=== PATIENT | male | born 1965 | race Two or more races ===

== ENCOUNTER 2022-11-19 09:19 | Outpatient (AMB) | payer OTHER, SELFPAY ==
--- NOTE | 2022-11-19 09:21 | MHC.PC.OV ---
Vital Signs 11/19/22 09:24 Height 5 ft 9 in Weight 255 lb 2 oz BMI 37.7 BP 130/70 Blood Pressure Location Lt brachial Position Sitting Pulse 60 Pulse Source Pulse Oximeter Pulse Oximetry (%) 96 Oxygen Delivery Method Room Air Intake Visit Reasons: npv/medication bm Intake Note: Patient is a new patient here to establish care for Diabetes, HTN, Chronic knee pain. Transferring care from Dr Juarez. Medical records have not been requested and have not received. Letter stating his health issue and needing to stay on the first floor. Plane Tableman Required: No Box Car Bracer: Not Required per policy Accompanied by: Self / Same As Patient Allergies No Known Allergies [No Known Allergies*] Allergy (Verified 11/19/22 09:40) Medication List - Last Reconciled 11/19/22 by ETIENNE Devine ibuprofen 800 mg PO Q8H PRN lisinopril 10 mg PO DAILY metformin 1,000 mg PO DAILY methadone 150 mg PO DAILY Tobacco use date assessed: 11/19/22 Dental Screening Dental Screen Date: 11/19/22 Did you have a dental visit in the last 12 months?: Yes Did you have a dental problem in the last 6 months where you did not have access to dental care?: No Was dental information given to patient?: Patient has dentist HPI HPI Comments History of Present Illness Details 57-year-old male new patient presents today to establish care. Patient reports previous patient of Dr. Juarez last seen years ago. Past medical history significant bilateral knee arthritis, hypertension, type 2 diabetes mellitus and history of polysubstance abuse. Patient reports previously used to use cocaine and sniffed heroin. Patient currently followed by [facility] on 150 mg methadone daily. Clean x 3 months Patient reports currently residing at the [facility]. Patient requesting new referral to [facility] as he states he has history of bilateral knee arthritis and he has [id number] in has been recommended to have knee replacements in the past. New referral entered. Patient requesting a letter for 1st floor housing as well as 1st level bunk due to his bilateral knee arthritis is difficult for him to get up and down the stairs as well as climbing the ladder to get into the bunk. Patient provided with letter and letter read to patient prior to printing when letter handed to patient he said well now what does this say. This CORPORATE STAFF ACCOUNTANT replied its says what I read to you. Patient then got upset started yelling that I am treating him differently do to his hx of addiction. This CORPORATE STAFF ACCOUNTANT apologized and stated I am not treating him any different for which he replied I am and left the appointment. Patient requesting something stronger for pain, patient made aware and will not be prescribing him any narcotic pain medication. Patient requesting new prescription for his ibuprofen increased does, For bilateral knee pain ibuprofen 800 mg sent to patient's pharmacy. [facility] Medical History (Updated 11/19/22 @ 09:45 by ETIENNE Devine) Polysubstance abuse Surgical History (Updated 11/19/22 @ 09:33 by WILLIAM Mcmahan) History of arthroscopy of left knee Family History (Updated 11/19/22 @ 09:45 by ETIENNE Devine) Mother No problems noted. Father No problems noted. Other Substance use disorder Social History (Updated 11/19/22 @ 09:46 by ETIENNE Devine) Housing: Apartment Alcohol intake: never Patient Tobacco Use Status: Current everyday Tobacco user Tobacco use type: Cigarette Cigarette Packs Per Day: 0.5 Cigarettes Per Day: 10 e-Cigarette/Vaping Use: Never Used Second Hand Smoke Exposure: Yes service: No Current occupational status: unemployed and disabled Cognitive needs: No Hearing needs: No Vision needs: No Questionnaire PHQ-9 Over the last 2 weeks, how often have you been bothered by any of the following problems? 1. Little interest or pleasure in doing things: not at all 2. Feeling down, depressed, or hopeless: not at all 3. Trouble falling or staying asleep, or sleeping too much: not at all 4. Feeling tired or having little energy: not at all 5. Poor appetite or overeating: not at all 6. Feeling bad about yourself - or that you are a failure or have let yourself or your family down: not at all 7. Trouble concentrating on things, such as reading the newspaper or watching television: not at all 8. Moving or speaking so slowly that other people could have noticed. Or the opposite - being so fidgety or restless that you have been moving around a lot more than usual: not at all 9. Thoughts that you would be better off or of hurting yourself in some way: not at all Total score: 0 Depression Screening Interpretation: Negative 14391 - PHQ-9 Billing: Yes Source: Developed by Drs. Dario Christopher, Tia Lopez, Vladimir Soto and colleagues, with an educational yunior from [employer]. Thrive Questionnaire Date Thrive assessed: 11/19/22 I am a: Patient What is your living situation today?: I have a steady place to live Within the past 12 months, did the food you bought not last and you didn't have the money to get more?: Never true Within the past 12 months, did you worry whether your food would run out before you got money to buy more?: Never true Do you have trouble paying for medicines?: No Do you have trouble getting transportation to medical appointments?: No Do you have trouble paying your heating and electricity bill?: No Do you have trouble taking care of your child, family member or friend?: No Do you have trouble with day-to-day activities such as bathing, preparing meals, shopping, managing finances, etc.?: No Are you currently unemployed and looking for a job?: No Are you interested in more education?: No Currently or been in a relationship where the following occur: no concerns reported AUDIT C Alcohol Use Questionnaire (AUDIT-C) 1. How often do you have a drink containing alcohol?: Never Total Score: 0 SHELLEY-7 AMB Questionnaire SHELLEY-7 Date SHELLEY - 7 assessed: 11/19/22 Feeling nervous, anxious, or on edge: 0 = Not at all Not being able to stop or control worryin = Not at all Worrying too much about different things: 0 = Not at all Trouble relaxin = Not at all Being so restless that it is hard to sit still: 0 = Not at all Becoming easily annoyed or irritable: 0 = Not at all Feeling afraid as if something awful might happen: 0 = Not at all Total SHELLEY-7 score (0-4 normal; 5-9 mild; 10-14 moderate; 15-21 severe): 0 Source: Developed by Tia Rodgers Kurt Kroenke and colleagues, with an educational yunior from [employer]. SHELLEY-7 Assessment Billing SHELLEY-7 Assessment Tool: SHELLEY-7 Assessment 48338 Review of Systems Const Denies chills, Denies fatigue, Denies fever(s) and Denies poor appetite Eyes Denies no additional complaints ENT Reports Normal hearing present Card Denies chest pain, Denies syncope, Denies rapid heart rate and Denies dyspnea Resp Denies cough and Denies dyspnea GI Denies change in stool character, Denies constipation, Denies diarrhea, Denies nausea and Denies vomiting Denies dysuria, Denies urinary frequency and Denies urinary urgency Neuro Reports Normal hearing present, Denies confusion and Denies syncope Psych Denies confusion Endo Denies fatigue Physical exam (Primary Care) Vital Signs: Last Vital Signs Pulse 60 11/19/22 09:24 BP 130/70 11/19/22 09:24 Pulse Ox 96 11/19/22 09:24 Oxygen Delivery Method Room Air 11/19/22 09:24 BMI result Body Mass Index 37.7 Tobacco/Smoking Status: Tobacco use Status Tobacco use date assessed 11/19/22 11/19/22 09:36 Patient Tobacco Use Status Current everyday Tobacco 11/19/22 09:46 Tobacco use type Cigarette 11/19/22 09:46 e-Cigarette/Vaping Use Never Used 11/19/22 09:46 PHQ-9: PHQ-9 Score PHQ-9: Total score 0 11/19/22 09:46 Depression Screening Interpretation: Negative Thrive Assessment: Date of Thrive Assessment Date Thrive assessed 11/19/22 11/19/22 09:36 Currently or been in a relationship where the following occur: no concerns reported Const General: No confusion Orientation/consciousness: No confusion HENAZ Head: Yes normocephalic and Yes atraumatic Eyes Conjunctivae: conjunctivae normal Chest Chest palpation & inspection: normal inspection of the chest Resp Effort & Inspection: normal respiratory effort Auscultation: clear to auscultation bilaterally, no crackles, no rhonchi and no wheezes Cardio Rate: regular rate Rhythm: regular rhythm Heart sounds: S1 normal heart sound present and S2 normal heart sound present GI Inspection: Yes normal to inspection Neuro General: No confusion Cranial nerves: Yes Normal hearing present Extrem General: No edema Assessment and Plan Assessment & Plan (1) Arthritis of both knees: Code(s): M17.0 - Bilateral primary osteoarthritis of knee Plan: New referral entered for [facility] to reestablish care. (2) Type 2 diabetes mellitus: Code(s): E11.9 - Type 2 diabetes mellitus without complications Plan: Continue on metformin 1000 mg daily. Fasting glucose and hemoglobin A1c ordered. (3) Hypertension: Code(s): I10 - Essential (primary) hypertension Plan: Continue on lisinopril 10 mg daily. Follow low-salt diet and exercise. Plan Follow up in 1 month for physical exam. Orders: Orders Comprehensive [place]. Panel Fast Today E11.9 - Type 2 diabetes mellitus without complications TSH reflex Free T4 Today Z13.29 - Encounter for screening for other suspected endocrine disorder Microalbumin, Random (w Creat) Today E11.9 - Type 2 diabetes mellitus without complications Complete Blood Count Auto Diff Today Z13.0 - Encounter for screening for diseases of the blood and blood-forming organs and certain disorders involving the immune mechanism Lipid Panel Today Z13.220 - Encounter for screening for lipoid disorders Hemoglobin A1c Today E11.9 - Type 2 diabetes mellitus without complications Referrals Orthopedics Referral M17.0 - Bilateral primary osteoarthritis of knee Medications: New metformin 1,000 mg PO DAILY 30 tabs 3RF ibuprofen 800 mg PO Q8H PRN 30 tabs 0RF pain Coding Level of Care Code New Pt Level 4 (37911) Diagnoses Arthritis of both knees M17.0 Type 2 diabetes mellitus E11.9 Hypertension I10 Additional Codes SHELLEY-7 Assessment Billing - SHELLEY-7 Assessment Tool: SHELLEY-7 Assessment 56954 ([id number])
[2022-11-19 09:24] VITALS: BP 130/70; PULSE 60; O2SAT 96; BMI 37.7
== END 2022-11-19 09:58 | disposition home or self-care (01) ==
PROVIDERS: PCP Physician Assistant; Visit Provider Nurse Practitioner Family
DX: M17.0 Bilateral primary osteoarthritis of knee (principal); E11.9 Type 2 diabetes mellitus without complications; I10 Essential (primary) hypertension
CPT/HCPCS: 99204

== ENCOUNTER 2022-12-11 09:35 | Outpatient (REF) | payer MEDICAID, SELFPAY ==
[2022-12-11 09:48] LABS: MANUAL DIFF FLAG NO
[2022-12-11 10:20] LABS: Basophils Absolute Auto 0.1 X10*3/uL (0.0-0.2); Basophils Percent Auto 0.6 % (0-2); Eosinophils Absolute Auto 0.2 X10*3/uL (0.0-0.4); Eosinophils Percent Auto 2.4 % (0-4); Hematocrit 41.3 % (42.0-52.0); Hemoglobin 13.1 g/dl (14.0-18.0); Imm Gran Abs Auto 0.09 X10*3/uL (0.00-0.03); Imm Gran Pct Auto 1.1 % (0.0-0.4); Lymphocytes Absolute Auto 2.6 X10*3/uL (1.2-4.9); Lymphocytes Percent Auto 30.5 % (20-40); Mean Corpuscular HGB Conc 31.7 g/dl (31.0-36.0); Mean Corpuscular Hemoglobin 27.2 pg (27.0-33.0); Mean Corpuscular Volume 85.7 fL (80.0-98.0); Mean Platelet Volume 10.3 fL (9.4-12.4); Monocytes Absolute Auto 0.5 X10*3/uL (0.1-1.2); Monocytes Percent Auto 6.2 % (2-11); Neutrophils Percent Auto 59.2 % (45-73); Platelet Count 227 X10*3/uL (160-400); Red Blood Count 4.82 X10*6/uL (4.60-5.80); Red Cell Distribution Width 13.2 % (11.0-16.0); White Blood Count 8.5 X10*3/uL (4.8-10.8)
[2022-12-11 10:40] LABS: Estimated Average Glucose 105 mg/dL; Hemoglobin A1c % 5.3 % (<6.0)
[2022-12-11 11:05] LABS: Alanine Aminotransferase 18 U/L (0-40); Albumin Level 3.9 g/dL (3.5-5.0); Alkaline Phosphatase 83 U/L (39-117); Anion Gap 13 (12-20); Aspartate Amino Transferase 26 U/L (5-37); Bilirubin Total 0.4 mg/dL (0.0-1.0); Blood Urea Nitrogen 14 mg/dL (9-16); Calcium 9.3 mg/dL (8.4-10.2); Carbon Dioxide 27 mmol/L (22-29); Chloride 106 mmol/L (96-108); Cholesterol 141 mg/dL (<200); Estimated Glomerular Filt Rate > 60; Glucose Fasting 122 mg/dL (60-99); HDL Cholesterol 38 mg/dL (>40); LDL Cholesterol Calculated 55 mg/dL (<100); Potassium 4.2 mmol/L (3.3-5.1); Sodium 142 mmol/L (135-145); Triglycerides 240 mg/dL (<150)
[2022-12-11 11:14] LABS: Creatinine Urine 166.06 mg/dL; Microalbum/Creatinine Ratio Ur 66.2 ug/mg cr (<30)
[2022-12-11 11:23] LABS: TSH reflex Free T4 1.02 uIU/mL (0.32-4.0)
== END 2022-12-11 09:36 | disposition home or self-care (01) ==
LOC: HO.LAB 09:35
PROVIDERS: PCP Physician Assistant; Visit Provider Nurse Practitioner Family
DX: Z13.29 Encounter for screening for other suspected endocrine disorder (principal); Z13.0 Encounter for screening for diseases of the blood and blood-forming organs and certain disorders involving the immune mechanism; Z13.220 Encounter for screening for lipoid disorders; E11.9 Type 2 diabetes mellitus without complications
CPT/HCPCS: 36415; 80053; 80061; 82043; 82570; 83036; 84443; 85025

== ENCOUNTER 2023-02-14 08:59 | Outpatient (AMB) | payer OTHER, SELFPAY ==
--- NOTE | 2023-02-14 10:30 | MHC.PC.OV ---
Intake Visit Reasons: personal Allergies No Known Allergies [No Known Allergies*] Allergy (Verified 11/19/22 09:40) Tobacco use date assessed: 11/19/22 [facility] Medical History (Updated 11/19/22 @ 09:45 by ETIENNE Devine) Polysubstance abuse Surgical History (Updated 11/19/22 @ 09:33 by Jose Melo [facility]) History of arthroscopy of left knee Family History (Updated 11/19/22 @ 09:45 by ETIENNE Devine) Mother No problems noted. Father No problems noted. Other Substance use disorder Social History (Updated 11/19/22 @ 09:46 by ETIENNE Devine) Housing: Apartment Alcohol intake: never Patient Tobacco Use Status: Current everyday Tobacco user Tobacco use type: Cigarette Cigarette Packs Per Day: 0.5 Cigarettes Per Day: 10 e-Cigarette/Vaping Use: Never Used Second Hand Smoke Exposure: Yes service: No Current occupational status: unemployed and disabled Cognitive needs: No Hearing needs: No Vision needs: No Questionnaire Thrive Questionnaire Date Thrive assessed: 11/19/22 SHELLEY-7 AMB Questionnaire SHELLEY-7 Date SHELLEY - 7 assessed: 11/19/22 Source: Developed by Drs. Dario Christopher, Tia Lopez, Vladimir Soto and colleagues, with an educational yunior from [employer]. Physical exam (Primary Care) Tobacco/Smoking Status: Tobacco use Status Tobacco use date assessed 11/19/22 11/19/22 09:36 Patient Tobacco Use Status Current everyday Tobacco 11/19/22 09:46 Tobacco use type Cigarette 11/19/22 09:46 e-Cigarette/Vaping Use Never Used 11/19/22 09:46 Thrive Assessment: Date of Thrive Assessment Date Thrive assessed 11/19/22 11/19/22 09:36 Coding
--- NOTE | 2023-02-14 11:05 | A.OFFPC_ITS ---
Vital Signs 02/14/23 11:06 Height 5 ft 9 in Weight 262 lb BMI 38.7 BP 192/100 H Blood Pressure Location Lt brachial Position Sitting Intake Visit Reasons: personal Intake Note: Patient here for glucose concerns Manager Food Beverage Required: No Accompanied by: Self / Same As Patient Allergies No Known Allergies [No Known Allergies*] Allergy (Verified 02/14/23 11:12) Medication List - Last Reconciled 02/14/23 by Sara Albright MD ibuprofen 800 mg PO Q8H PRN lisinopril 10 mg PO DAILY metformin 1,000 mg PO DAILY methadone 150 mg PO DAILY Tobacco use date assessed: 11/19/22 Dental Screening Dental Screen Date: 02/14/23 Did you have a dental visit in the last 12 months?: Yes Did you have a dental problem in the last 6 months where you did not have access to dental care?: No Was dental information given to patient?: Patient has dentist HPI HPI Comments History of Present Illness Details This is a 57 year old male with diabetes mellitus, hypertension and knee osteoarthritis that comes complaining of a penile yellow discharge and some burning sensation when urinating that started few days ago. No fever. No penile lesions. Had unprotected sex few days before urinary symptoms started. A1c iwithin goal. BP elevated and will be recheck in next office visit next month. Knee osteoarthiritis stable with ibuprofen prn. [facility] Medical History (Updated 02/14/23 @ 11:15 by Sara Albright MD) Polysubstance abuse Surgical History History of arthroscopy of left knee Family History Mother No problems noted. Father No problems noted. Other Substance use disorder Social History Housing: Apartment Alcohol intake: never Patient Tobacco Use Status: Current everyday Tobacco user Tobacco use type: Cigarette Cigarette Packs Per Day: 0.5 Cigarettes Per Day: 10 e-Cigarette/Vaping Use: Never Used Second Hand Smoke Exposure: Yes service: No Current occupational status: unemployed and disabled Cognitive needs: No Hearing needs: No Vision needs: No Questionnaire Thrive Questionnaire Date Thrive assessed: 11/19/22 SHELLEY-7 AMB Questionnaire SHELLEY-7 Date SHELLEY - 7 assessed: 11/19/22 Source: Developed by Drs. Dario Christopher, Tia Lopez, Vladimir Soto and colleagues, with an educational yunior from [employer]. Review of Systems Const All systems reviewed & are unremarkable except as noted in HPI and below Eyes Reports no additional complaints, Denies change in vision and Denies other visual disturbances Card Denies chest pain at rest, Denies chest pain with activity, Denies edema, Denies irregular heart rhythm, Denies claudication, Denies dyspnea, Denies dyspnea on exertion, Denies orthopnea, Denies paroxysmal nocturnal dyspnea and Denies slow heart rate Resp Denies cough, Denies dyspnea and Denies dyspnea on exertion GI Denies abdominal pain, Denies change in bowel habits, Denies excessive flatus, Denies nausea and Denies vomiting Denies urinary hesitancy, Denies urinary incontinence and Denies urinary urgency Musc Denies abnormal gait, Denies atrophy, Denies deformity and Denies limited range of motion Skin/Breast Denies bleeding lesions, Denies changing lesions and Denies rash Neuro Denies abnormal gait, Denies behavioral changes and Denies lack of coordination Psych Denies behavioral changes Physical exam (Primary Care) Vital Signs: Last Vital Signs BP 192/100 H 02/14/23 11:06 BMI result Body Mass Index 38.7 Tobacco/Smoking Status: Tobacco use Status Tobacco use date assessed 11/19/22 02/14/23 11:09 Patient Tobacco Use Status Current everyday Tobacco 02/14/23 11:09 Tobacco use type Cigarette 02/14/23 11:09 e-Cigarette/Vaping Use Never Used 02/14/23 11:09 Thrive Assessment: Date of Thrive Assessment Date Thrive assessed 11/19/22 02/14/23 11:09 Eyes General: appearance normal, both eyes and all related structures Eyelids: Yes eyelids normal Conjunctivae: conjunctivae normal Neck Neck: Yes normal visual inspection and Yes supple Resp Effort & Inspection: normal respiratory effort Auscultation: clear to auscultation bilaterally Cardio Jugular venous distension: no JVD Rate: regular rate Rhythm: regular rhythm Heart sounds: S1 normal heart sound present and S2 normal heart sound present Extrem General: Yes full ROM Assessment and Plan Assessment & Plan (1) Hypertension: Code(s): I10 - Essential (primary) hypertension Plan: Continue Lisinopril. BP goal is equal or less than 130/80. (2) Type 2 diabetes mellitus: Code(s): E11.9 - Type 2 diabetes mellitus without complications Plan: Continue Metformin. A1c goal is equal or less than 7%. (3) Exposure to STD: Code(s): Z20.2 - Contact with and (suspected) exposure to infections with a predominantly sexual mode of transmission Plan: STDs ordered. (4) Arthritis of both knees: Code(s): M17.0 - Bilateral primary osteoarthritis of knee Plan: Continue NSAIDs. Orders: Orders CT NG by PCR Today Z20.2 - Contact with and (suspected) exposure to infections with a predominantly sexual mode of transmission Hepatitis A,B,C Profile Today Z20.2 - Contact with and (suspected) exposure to infections with a predominantly sexual mode of transmission UA CC w/rflx Micro + Cult Today R30.0 - Dysuria HIV Ab/Ag Today Z20.2 - Contact with and (suspected) exposure to infections with a predominantly sexual mode of transmission Syphilis Screen Today Z20.2 - Contact with and (suspected) exposure to infections with a predominantly sexual mode of transmission Coding Level of Care Code Est Pt Level 4 (11578) Diagnoses Hypertension I10 Type 2 diabetes mellitus E11.9 Exposure to STD Z20.2 Arthritis of both knees M17.0 Time Spent (min) 21
[2023-02-14 11:06] VITALS: BP 192/100; BMI 38.7
== END 2023-02-14 11:18 | disposition home or self-care (01) ==
LOC: HO.HMGH 08:59
PROVIDERS: PCP Physician Assistant; Visit Provider Internal Medicine
DX: I10 Essential (primary) hypertension (principal); E11.9 Type 2 diabetes mellitus without complications; Z20.2 Contact with and (suspected) exposure to infections with a predominantly sexual mode of transmission; M17.0 Bilateral primary osteoarthritis of knee
CPT/HCPCS: 99214

== ENCOUNTER 2023-02-14 11:22 | Outpatient (REF) | payer OTHER, SELFPAY ==
[2023-02-14 12:56] LABS: Syphilis Screen Nonreactive (Nonreactive)
[2023-02-14 13:48] LABS: Appearance Urine Clear; Color Urine Yellow; Glucose Urine UA >=1000 mg/dL (Negative); Leukocyte Esterase Urine Trace (Negative); Nitrite Urine Negative (Negative); PH 6.5 (5.0-9.0); Specific Gravity - Urine >= 1.030 (1.005-1.025); UMIC TRIGGER UACC YES; Urine Blood Large (3+) (Negative); Urine Ketones Trace mg/dL (Negative); Urine Protein 100 (2+) mg/dL (Neg-Trace)
[2023-02-14 13:54] LABS: Bacteria Urine None Seen (None Seen); Hyaline Casts Urine 0-2 /LPF (0-2); RBC Urine >20 /HPF (0-2); Squamous Epithelial Cell Urine 0-2 /HPF (0-2); UACC Culture Trigger YES; WBC Urine 21-50 /HPF (0-5)
[2023-02-14 15:51] LABS: CT PCR NOT DETECTED (Not Detect.); NG PCR DETECTED (Not Detect.)
[2023-02-15 04:34] LABS: HBS Num1 5.24 mIU/mL (0-7.99); HBc Num1 0.13 S/CO (0.00-0.79); HBsAGNum1 0.23 S/CO (0.00-0.99); HIV AB/AG Nonreactive (Nonreactive); HIV Num 1 0.04 S/CO (0.00-0.99); Hepatitis A Antibody IgM 0.11 Index (0-0.79); Hepatitis B Core Antibody Nonreactive (Nonreactive); Hepatitis B Surface Antigen Negative (Negative); ~HepC Num1 7.75 S/CO (0.00-0.79); ~Hepatitis A Antibody IgM Nonreactive (Nonreactive); ~Hepatitis B Surface Antibody NONREACTIVE (Nonreactive); ~Hepatitis C Antibody Reactive (Nonreactive)
== END 2023-02-14 11:23 | disposition home or self-care (01) ==
LOC: HO.LAB 11:22
PROVIDERS: PCP Internal Medicine; Visit Provider Internal Medicine
DX: Z20.2 Contact with and (suspected) exposure to infections with a predominantly sexual mode of transmission (principal); Z11.3 Encounter for screening for infections with a predominantly sexual mode of transmission; Z11.8 Encounter for screening for other infectious and parasitic diseases; Z11.4 Encounter for screening for human immunodeficiency virus [HIV]; Z11.59 Encounter for screening for other viral diseases
CPT/HCPCS: 0353U; 81001; 86704; 86706; 86709; 86780; 86803; 87086; 87340; 87389

== ENCOUNTER 2023-08-23 08:21 | Outpatient (AMB) | payer OTHER, SELFPAY ==
[2023-08-23 08:25] VITALS: BP 160/90; BMI 38.5
--- NOTE | 2023-08-23 08:25 | MHC.PC.OV ---
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 Technician Required: No Accompanied by: Self / Same As Patient Allergies No Known Allergies [No Known Allergies*] Allergy (Verified 08/23/23 08:42) Medication List - Last Reconciled 08/23/23 by Sara Albright MD ibuprofen 800 mg PO Q8H PRN insulin syringe-needle U-100 As directed insulin syringe-needle U-100 (BD Eclipse Luer-Randall) As directed insulin syringe-needle U-100 As directed lisinopril 10 mg PO DAILY metformin 1,000 mg PO DAILY methadone 160 mg PO DAILY Tobacco use date assessed: 08/23/23 Dental Screening Dental Screen Date: 08/23/23 Did you have a dental visit in the last 12 months?: Yes Did you have a dental problem in the last 6 months where you did not have access to dental care?: No Was dental information given to patient?: Patient has dentist HPI HPI Comments History of Present Illness Details This is a 57-year-old male with diabetes mellitus type 2, history of polysubstance abuse in remission with methadone and mild major depression that comes for his physical exam. A1c not on goal and I will increase metformin to twice a day and add Trulicity once a week. Blood pressure elevated today and he did took his lisinopril and I will increase it to 20 mg. Blood pressure will be recheck in 3 weeks by nurse navigator. On methadone for his history of polysubstance abuse and has been in remission for a long time. Has mild major depression and I will start him on sertraline and follow-up in a few months. Complains of bilateral knee pain and would like a referral to ortho. Last diabetic eye exam was 2-3 years ago and will be referred to Ophthalmology. Has never a colonoscopy. [facility] Medical History (Updated 08/23/23 @ 09:09 by Sara Albright MD) Exposure to STD Polysubstance abuse Surgical History History of arthroscopy of left knee Family History (Updated 08/23/23 @ 08:49 by Sara Albright MD) Mother Diabetes mellitus Hypertension Father No problems noted. Other Substance use disorder Social History Housing: Apartment Alcohol intake: never Patient Tobacco Use Status: Current everyday Tobacco user Tobacco use type: Cigarette Cigarettes Per Day: 7 e-Cigarette/Vaping Use: Never Used Second Hand Smoke Exposure: Yes service: No Current occupational status: unemployed and disabled Cognitive needs: No Hearing needs: No Vision needs: No Questionnaire PHQ-9 Over the last 2 weeks, how often have you been bothered by any of the following problems? 1. Little interest or pleasure in doing things: more than half the days 2. Feeling down, depressed, or hopeless: more than half the days 3. Trouble falling or staying asleep, or sleeping too much: nearly every day 4. Feeling tired or having little energy: more than half the days 5. Poor appetite or overeating: several days 6. Feeling bad about yourself - or that you are a failure or have let yourself or your family down: not at all 7. Trouble concentrating on things, such as reading the newspaper or watching television: several days 8. Moving or speaking so slowly that other people could have noticed. Or the opposite - being so fidgety or restless that you have been moving around a lot more than usual: more than half the days 9. Thoughts that you would be better off or of hurting yourself in some way: not at all Total score: 13 Depression Screening Interpretation: Positive Depression Screening Follow-up: Existing condition, New Medication prescribed and Follow-up Visit Requested Depression Screening Done: Yes 87943 - PHQ-9 Billing: Yes Source: Developed by Drs. Dario Christopher, Tia Lopez, Vladimir Soto and colleagues, with an educational yunior from [employer]. Thrive Questionnaire Date Thrive assessed: 08/23/23 I am a: Patient What is your living situation today?: I have a steady place to live Within the past 12 months, did the food you bought not last and you didn't have the money to get more?: Never true Within the past 12 months, did you worry whether your food would run out before you got money to buy more?: Never true Do you have trouble paying for medicines?: No Do you have trouble getting transportation to medical appointments?: No Do you have trouble paying your heating and electricity bill?: No Do you have trouble taking care of your child, family member or friend?: No Do you have trouble with day-to-day activities such as bathing, preparing meals, shopping, managing finances, etc.?: No Are you currently unemployed and looking for a job?: No Are you interested in more education?: No Please select the resources that you would like help with: None Currently or been in a relationship where the following occur: no concerns reported THRIVE Score: 0 AUDIT C Alcohol Use Questionnaire (AUDIT-C) 1. How often do you have a drink containing alcohol?: Never Total Score: 0 Score Reviewed/Action Taken: No SHELLEY-7 AMB Questionnaire SHELLEY-7 Date SHELLEY - 7 assessed: 08/23/23 Feeling nervous, anxious, or on edge: 2 = More than half the days Not being able to stop or control worryin = Not at all Worrying too much about different things: 1 = Several days Trouble relaxin = Several days Being so restless that it is hard to sit still: 1 = Several days Becoming easily annoyed or irritable: 1 = Several days Feeling afraid as if something awful might happen: 1 = Several days Total SHELLEY-7 score (0-4 normal; 5-9 mild; 10-14 moderate; 15-21 severe): 7 Source: Developed by Drs. Dario Christopher, Tia Lopez, Vladimir Soto and colleagues, with an educational yunior from [employer]. SHELLEY-7 Assessment Billing SHELLEY-7 Assessment Tool: SHELLEY-7 Assessment 16739 Review of Systems Const All systems reviewed & are unremarkable except as noted in HPI and below Card Reports chest pain at rest, Denies chest pain with activity, Denies edema, Denies irregular heart rhythm, Denies claudication, Denies dyspnea, Denies dyspnea on exertion, Denies orthopnea, Denies paroxysmal nocturnal dyspnea and Denies slow heart rate Resp Denies cough, Denies dyspnea and Denies dyspnea on exertion GI Denies abdominal pain, Denies change in bowel habits, Denies excessive flatus, Denies nausea and Denies vomiting Denies urinary hesitancy, Denies urinary incontinence and Denies urinary urgency Musc Denies atrophy, Denies deformity, Reports arthralgias and Denies limited range of motion Physical exam (Primary Care) Vital Signs: Last Vital Signs BP 160/90 H 08/23/23 08:25 Care Plan Goal for BP management: Increase lisinopril from 10 mg to 20 mg. Next steps: Recheck blood pressure with nurse navigator in 3 weeks. BMI result Body Mass Index 38.5 BMI Assessment/Plan discussion: High BMI High, discussed plan: lifestyle, weight reduction, dietary and physical activity Tobacco/Smoking Status: Tobacco use Status Tobacco use date assessed 08/23/23 08/23/23 08:33 Patient Tobacco Use Status Current everyday Tobacco 08/23/23 08:33 Tobacco use type Cigarette 08/23/23 08:33 e-Cigarette/Vaping Use Never Used 08/23/23 08:33 Are you ready to quit: No Tobacco cessation counseling provided: Yes Items discussed: [employer]uit[employer] Relapse Prevention: discussed the importance of a supportive environment, discussed negative mood or depression after quitting, weight gain after smoking is common and discussed dietary, exercise and/or lifestyle changes Number of minutes spent counselin CPT code: 39195 - 4-10 Minutes PHQ-9: PHQ-9 Score PHQ-9: Total score 13 08/23/23 08:33 Depression Screening Interpretation: Positive Depression Screening Follow-up: Existing condition, New Medication prescribed and Follow-up Visit Requested Thrive Assessment: Date of Thrive Assessment Date Thrive assessed 08/23/23 08/23/23 08:33 Currently or been in a relationship where the following occur: no concerns reported Const Orientation/consciousness: patient oriented x3 HENMT Head: Yes normal to inspection, Yes normocephalic and Yes atraumatic Ears: external ears normal Eyes General: appearance normal, both eyes and all related structures Eyelids: Yes eyelids normal Conjunctivae: conjunctivae normal Neck Neck: Yes normal visual inspection and Yes supple Resp Effort & Inspection: normal respiratory effort Auscultation: clear to auscultation bilaterally Cardio Jugular venous distension: no JVD Rate: regular rate Rhythm: regular rhythm Heart sounds: S1 normal heart sound present and S2 normal heart sound present GI Inspection: Yes normal to inspection Palpation (GI): Soft to palpation and nontender Auscultation: normal bowel sounds Skin General skin exam: no rashes or lesions noted Neuro General: patient oriented x3 and no focal motor deficits Extrem General: Yes full ROM Psych Appearance: grossly normal Results AMB Hemoglobin A1c AMB Hemoglobin A1c 10.0 % Last Edit by WILLIAM Santos on 08/23/23 08:43 Assessment and Plan Assessment & Plan (1) Physical exam: Code(s): Z00.00 - Encounter for general adult medical examination without abnormal findings Plan: Repeat in a year. 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 Start Trulicity once a week. A1c goal is equal or less than 7%. Do diabetic eye exam yearly. Was referred to Ophthalmology. (3) Mild major depression: Code(s): F32.0 - Major depressive disorder, single episode, mild Plan: Start sertraline. Follow-up visit requested. (4) Polysubstance abuse: Comment: hx heroine and cocaine use Code(s): F19.10 - Other psychoactive substance abuse, uncomplicated Plan: Continue methadone. (5) Right knee pain: Code(s): M25.561 - Pain in right knee Qualifiers: Chronicity: chronic Qualified Code(s): M25.561 - Pain in right knee; G89.29 - Other chronic pain Plan: Referred to Ortho. X-ray ordered. (6) Left knee pain: Code(s): M25.562 - Pain in left knee Qualifiers: Chronicity: chronic Qualified Code(s): M25.562 - Pain in left knee; G89.29 - Other chronic pain Plan: Referred to Ortho. X-ray ordered. (7) Hypertension: Code(s): I10 - Essential (primary) hypertension Qualifiers: Hypertension type: primary hypertension Qualified Code(s): I10 - Essential (primary) hypertension Plan: Increase lisinopril to 20 mg. Blood pressure goal is equal or less than 130/80. Recheck blood pressure with nurse navigator in 3 weeks. Orders: Orders CT NG by PCR Today A54.9 - Gonococcal infection, unspecified Lipid Panel Today E78.5 - Hyperlipidemia, unspecified, Z00.00 - Encounter for general adult medical examination without abnormal findings ECG 12 lead EKG Today R07.9 - Chest pain, unspecified Comprehensive [place]. Panel Fast Today Z00.00 - Encounter for general adult medical examination without abnormal findings Microalbumin, Random (w Creat) Today E11.9 - Type 2 diabetes mellitus without complications XR knee LT 2V Today M25.562 - Pain in left knee XR knee RT 2V Today M25.561 - Pain in right knee Referrals Ophthalmology Referral E11.9 - Type 2 diabetes mellitus without complications Gastroenterology Referral Z12.11 - Encounter for screening for malignant neoplasm of colon Orthopedics Referral M17.0 - Bilateral primary osteoarthritis of knee Medications: New sertraline 25 mg PO DAILY 90 days 90 tabs 1RF F32.0 - Major depressive disorder, single episode, mild lisinopril 20 mg PO DAILY 90 days 90 tabs 1RF I10 - Essential (primary) hypertension dulaglutide (Trulicity) 0.75 mg (0.5 mL) subcut QWEEK 90 days 6.5 mL 1RF E11.9 - Type 2 diabetes mellitus without complications Changed From metformin 1,000 mg PO DAILY 30 tabs 3RF E11.9 - Type 2 diabetes mellitus without complications To metformin 1,000 mg PO BID 90 days 180 tabs 3RF E11.9 - Type 2 diabetes mellitus without complications Refilled ibuprofen 800 mg PO Q8H PRN 30 tabs 0RF pain Coding Level of Care Code Est Pt Level 3 (68964) Est Pt Prev Care 40-64y(18475) Diagnoses Physical exam Z00.00 Type 2 diabetes mellitus with hyperglycemia, without long-term current use of insulin E11.65 Diabetes mellitus regional intermodal 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
[2023-08-23 09:00] VITALS: BP 160/90
== END 2023-08-23 09:01 | disposition home or self-care (01) ==
PROVIDERS: PCP Internal Medicine; Visit Provider Internal Medicine
DX: Z00.00 Encounter for general adult medical examination without abnormal findings (principal); E11.65 Type 2 diabetes mellitus with hyperglycemia; F32.0 Major depressive disorder, single episode, mild; F19.10 Other psychoactive substance abuse, uncomplicated; M25.561 Pain in right knee; M25.562 Pain in left knee; I10 Essential (primary) hypertension
CPT/HCPCS: 83036; 96127; 99213; 99396

== ENCOUNTER 2023-08-23 09:15 | Outpatient (REF) | payer OTHER, SELFPAY ==
--- NOTE | ~2023-08-23 | XR_ITS ---
EXAMINATION: XR KNEE, RIGHT XR KNEE, LEFT CLINICAL INFORMATION: Bilateral knee pain. COMPARISON: Bilateral knee radiographs dated 08/10/2018. TECHNIQUE: AP, lateral, and sunrise views of the right and left knee. FINDINGS: RIGHT KNEE: Severe medial compartment joint space narrowing with bony remodeling, subchondral sclerosis, and subchondral cystic change which has progressed when compared to the prior examination. Tricompartmental marginal osteophytes. No acute fracture or dislocation. Trace joint effusion. LEFT KNEE: Severe medial compartment joint space narrowing with bony remodeling, subchondral sclerosis, and subchondral cystic change which has progressed when compared to the prior examination. Tricompartmental marginal osteophytes. No acute fracture or dislocation. No significant joint effusion. XR/XR knee LT 2V IMPRESSION: RIGHT KNEE: Tricompartmental osteoarthritis, most severe within the medial compartment. Findings have progressed when compared to the prior examination. Trace joint effusion. LEFT KNEE: Tricompartmental osteoarthritis, most severe within the medial compartment. Findings have progressed when compared to the prior examination.
--- NOTE | ~2023-08-23 | XR_ITS ---
EXAMINATION: XR KNEE, RIGHT XR KNEE, LEFT CLINICAL INFORMATION: Bilateral knee pain. COMPARISON: Bilateral knee radiographs dated 08/10/2018. TECHNIQUE: AP, lateral, and sunrise views of the right and left knee. FINDINGS: RIGHT KNEE: Severe medial compartment joint space narrowing with bony remodeling, subchondral sclerosis, and subchondral cystic change which has progressed when compared to the prior examination. Tricompartmental marginal osteophytes. No acute fracture or dislocation. Trace joint effusion. LEFT KNEE: Severe medial compartment joint space narrowing with bony remodeling, subchondral sclerosis, and subchondral cystic change which has progressed when compared to the prior examination. Tricompartmental marginal osteophytes. No acute fracture or dislocation. No significant joint effusion. XR/XR knee RT 2V IMPRESSION: RIGHT KNEE: Tricompartmental osteoarthritis, most severe within the medial compartment. Findings have progressed when compared to the prior examination. Trace joint effusion. LEFT KNEE: Tricompartmental osteoarthritis, most severe within the medial compartment. Findings have progressed when compared to the prior examination.
--- NOTE | 2023-08-23 09:22 | ECG_ITS ---
Test Reason : chest pain Blood Pressure : / mmHG Vent. Rate : 063 BPM Atrial Rate : 063 BPM P-R Int : 180 ms QRS Dur : 086 ms QT Int : 442 ms P-R-T Axes : 000 037 015 degrees QTc Int : 452 ms Normal sinus rhythm Normal ECG No previous ECGs available Referred By: Sara Albright Electronically Signed By:RIDGE HASTINGS MD
[2023-08-23 10:48] LABS: Creatinine Urine 60.98 mg/dL; Microalbum/Creatinine Ratio Ur 83.6 ug/mg cr (<30)
[2023-08-23 10:56] LABS: Alanine Aminotransferase 19 U/L (0-40); Albumin Level 3.7 g/dL (3.5-5.0); Alkaline Phosphatase 111 U/L (39-117); Anion Gap 13 (12-20); Aspartate Amino Transferase 17 U/L (5-37); Bilirubin Total 0.2 mg/dL (0.0-1.0); Blood Urea Nitrogen 16 mg/dL (9-16); Calcium 9.4 mg/dL (8.4-10.2); Carbon Dioxide 26 mmol/L (22-29); Chloride 103 mmol/L (96-108); Cholesterol 144 mg/dL (<200); Estimated Glomerular Filt Rate > 60; Glucose Fasting 366 mg/dL (60-99); HDL Cholesterol 33 mg/dL (>40); LDL Cholesterol Calculated 60 mg/dL (<100); Potassium 4.4 mmol/L (3.3-5.1); Sodium 138 mmol/L (135-145); Total Protein 6.7 g/dL (6.5-8.0); Triglycerides 258 mg/dL (<150)
[2023-08-23 11:43] LABS: CT PCR NOT DETECTED (Not Detect.); NG PCR NOT DETECTED (Not Detect.)
== END 2023-08-23 09:16 | disposition home or self-care (01) ==
LOC: HO.XRAY 09:15
PROVIDERS: PCP Internal Medicine; Visit Provider Internal Medicine
DX: Z00.00 Encounter for general adult medical examination without abnormal findings (principal); M25.562 Pain in left knee; M25.561 Pain in right knee; E11.9 Type 2 diabetes mellitus without complications; A54.9 Gonococcal infection, unspecified; E78.5 Hyperlipidemia, unspecified; R07.9 Chest pain, unspecified
CPT/HCPCS: 0353U; 73560; 80053; 80061; 82043; 82570; 93005

== ENCOUNTER → 2023-08-23 09:22 | Outpatient (BNV) | payer OTHER, SELFPAY | PROVIDERS: PCP Internal Medicine; Visit Provider Internal Medicine Cardiovascular Disease | DX: R07.9 Chest pain, unspecified (principal) | CPT/HCPCS: 93010 ==

== ENCOUNTER 2024-07-04 09:59 | Outpatient (AMB) | payer OTHER, SELFPAY ==
--- NOTE | 2024-07-04 10:35 | A.OFFVIS_ITS ---
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 Patient was previously was seen by his PCP who ordered x- rays and referred to orthopedics. He was also seen at [facility], where he was given cortisone injections and also had arthroscopy on both of his knees about 4-5 years ago. Patient reports pain is located in at the anterior and posterior as pect of knees with his left knee being the worse. Denies injury. He uses a cane with ambulation. Finds relief with Motrin. 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 He states he has a history of steroid injections from another orthopedic practice and was also discussing total knee arthroplasty; however he states his blood pressure was not well controlled therefore they could not proceed. He states he has been working on weight loss and mentions his diabetes and blood pressure has improved. He does have a history of substance use and has been clean since feb 2024. Prior to his recent relapse he has been clean for 13 years . Currently he is on methadone, uses the [facility] clinic. [facility] Medical History (Updated 07/04/24 @ 14:04 by Gerardo Jj PA-C) Exposure to STD Polysubstance abuse Surgical History (Reviewed 07/04/24 @ 10:38 by Fartun Gallegos [facility]) History of arthroscopy of left knee Family History (Updated 08/23/23 @ 08:49 by Sara Albright MD) Mother Diabetes mellitus Hypertension Father No problems noted. Other Substance use disorder Social History Housing: Apartment Alcohol intake: never Patient Tobacco Use Status: Current everyday Tobacco user Tobacco use type: Cigarette Cigarettes Per Day: 7 e-Cigarette/Vaping Use: Never Used Second Hand Smoke Exposure: Yes service: No Current occupational status: unemployed and disabled Cognitive needs: No Hearing needs: No Vision needs: No Review of Systems Const All systems reviewed & are unremarkable except as noted in HPI and below Physical Exam Vital Signs: BMI result Body Mass Index 35.7 Const General: cooperative and no acute distress Orientation/consciousness: patient oriented x3 Resp Effort & Inspection: normal respiratory effort and able to speak in complete sentences Cardio Peripheral pulses: Peripheral pulses 2+ throughout Neuro General: patient oriented x3 Extrem Other: Left knee skin intact, no erythema or joint effusion. Tenderness along the medial joint line. ROM full with crepitus. Negative steinmans. No ligamentous laxity. NVI. Results Reviewed Results Reviewed: X-rays of the left knee obtained show severe osteoarthritis with joint collapse. Assessment & Plan Assessment & Plan (1) Arthritis of left knee: Code(s): M17.12 - Unilateral primary osteoarthritis, left knee Category: Medical Plan: We discussed options today which include steroid injection versus total knee arthroplasty. He would like proceed with total knee arthroplasty. We did discuss this briefly, we discuss preoperative planning along with hospital stay and postop recovery. I discussed with him the potential risks with any type of substance use and total knee infection. He does express understanding. I will set him up to meet with Dr. Guillory to discuss further and potentially plan for a left total knee arthroplasty. Orders: Orders XR knee standing BI Today M25.561 - Pain in right knee, M25.562 - Pain in left knee Coding Level of Care Code New Pt Level 4 (16031) Complex EM visit Add On G2211 Diagnoses Arthritis of left knee M17.12
[2024-07-04 10:42] VITALS: BMI 38.5
[2024-07-04 10:43] VITALS: BMI 35.7
== END 2024-07-04 10:52 | disposition home or self-care (01) ==
LOC: HO.HOS 10:00
PROVIDERS: PCP Internal Medicine; Visit Provider Physician Assistant
DX: M17.12 Unilateral primary osteoarthritis, left knee (principal)
CPT/HCPCS: 99204; G2211

== ENCOUNTER → 2024-07-04 10:27 | Outpatient (BNV) | payer OTHER, SELFPAY | PROVIDERS: Visit Provider Radiology Diagnostic Radiology | DX: M17.0 Bilateral primary osteoarthritis of knee (principal) | CPT/HCPCS: 73565 ==

== ENCOUNTER 2024-07-04 15:20 | Outpatient (REF) | payer OTHER, SELFPAY ==
--- NOTE | ~2024-07-04 | XR_ITS ---
EXAMINATION: XR KNEE AP STANDING CLINICAL INFORMATION: M25.561 - Pain in right knee COMPARISON: Correlated x-ray both knees dated August 13, 2023. TECHNIQUE: AP bilateral standing view of the knees was obtained. FINDINGS: There is joint space narrowing involving mostly the medial compartments of both knees with associated marginal osteophyte formation in the femoral condyles and tibial plateaus and sclerosis and the articular surface with subchondral cyst formation, pronounced on the left and to a lesser extent right knee. There is a genu varus deformity, bilaterally. XR/XR knee standing BI IMPRESSION: Tricompartmental osteoarthrosis involving mostly the medial compartment both knees, moderate to severe. Electronically signed by: Elie Cerda MD 07/04/2024 11:47 AM EDT
== END 2024-07-04 15:21 | disposition home or self-care (01) ==
LOC: HO.HOSX 15:20
PROVIDERS: Visit Provider Physician Assistant
DX: M25.561 Pain in right knee (principal); M17.12 Unilateral primary osteoarthritis, left knee
CPT/HCPCS: 73565; 99202

== ENCOUNTER 2024-07-30 14:46 | Outpatient (AMB) | payer OTHER, SELFPAY ==
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
[2024-07-30 14:55] VITALS: BP 150/102; BMI 37.0
== END 2024-07-30 15:19 | disposition home or self-care (01) ==
LOC: HO.HMCH 14:47
PROVIDERS: PCP Internal Medicine; Visit Provider Internal Medicine
DX: F33.1 Major depressive disorder, recurrent, moderate (principal); I10 Essential (primary) hypertension; F19.10 Other psychoactive substance abuse, uncomplicated; E11.65 Type 2 diabetes mellitus with hyperglycemia; M17.0 Bilateral primary osteoarthritis of knee; G47.00 Insomnia, unspecified

== ENCOUNTER → 2024-07-30 14:46 | Outpatient (BNVA) | payer OTHER, SELFPAY | PROVIDERS: PCP Internal Medicine; Visit Provider Internal Medicine | DX: I10 Essential (primary) hypertension (principal); E11.65 Type 2 diabetes mellitus with hyperglycemia; M17.0 Bilateral primary osteoarthritis of knee; F33.1 Major depressive disorder, recurrent, moderate; F19.10 Other psychoactive substance abuse, uncomplicated; G47.00 Insomnia, unspecified | CPT/HCPCS: 83036; 96127; 99212 ==

== ENCOUNTER 2024-08-17 10:01 | Outpatient (REF) | payer OTHER, SELFPAY ==
[2024-08-17 11:03] LABS: MANUAL DIFF FLAG NO
[2024-08-17 12:26] LABS: Basophils Percent Auto 0.4 % (0-2); Eosinophils Absolute Auto 0.2 X10*3/uL (0.0-0.4); Eosinophils Percent Auto 1.5 % (0-4); Hematocrit 43.1 % (42.0-52.0); Imm Gran Abs Auto 0.09 X10*3/uL (0.00-0.03); Imm Gran Pct Auto 0.9 % (0.0-0.4); Lymphocytes Absolute Auto 2.1 X10*3/uL (1.2-4.9); Lymphocytes Percent Auto 20.6 % (20-40); Mean Corpuscular HGB Conc 32.5 g/dl (31.0-36.0); Mean Corpuscular Hemoglobin 26.5 pg (27.0-33.0); Mean Corpuscular Volume 81.6 fL (80.0-98.0); Mean Platelet Volume 10.1 fL (9.4-12.4); Monocytes Absolute Auto 0.5 X10*3/uL (0.1-1.2); Monocytes Percent Auto 5.1 % (2-11); Neutrophils Absolute Auto 7.4 x10*3/uL (2.0-8.3); Neutrophils Percent Auto 71.5 % (45-73); Platelet Count 246 X10*3/uL (160-400); Red Blood Count 5.28 X10*6/uL (4.60-5.80); Red Cell Distribution Width 13.2 % (11.0-16.0); White Blood Count 10.4 X10*3/uL (4.8-10.8)
[2024-08-17 13:14] LABS: Alanine Aminotransferase 27 U/L (0-40); Albumin Level 4.4 g/dL (3.5-5.0); Alkaline Phosphatase 90 U/L (39-117); Anion Gap 11 (12-20); Aspartate Amino Transferase 29 U/L (5-37); Bilirubin Total 0.4 mg/dL (0.0-1.0); Blood Urea Nitrogen 13 mg/dL (9-16); Calcium 9.5 mg/dL (8.4-10.2); Carbon Dioxide 27 mmol/L (22-29); Chloride 105 mmol/L (96-108); Cholesterol 159 mg/dL (<200); Estimated Glomerular Filt Rate > 60; Glucose Fasting 84 mg/dL (60-99); HDL Cholesterol 35 mg/dL (>40); Iron 100 mcg/dL (45-160); LDL Cholesterol Calculated 89 mg/dL (<100); Percent Iron Saturation 38 % (15-50); Potassium 4.3 mmol/L (3.3-5.1); Sodium 139 mmol/L (135-145); Total Iron Binding Capacity 262 mcg/dL (228-428); Total Protein 7.5 g/dL (6.5-8.0); Triglycerides 175 mg/dL (<150); Unsaturated Iron Binding 162 ug/dL
[2024-08-17 13:29] LABS: Vitamin D 25-OH Total 23.2 ng/mL (>30)
[2024-08-17 13:31] LABS: Folate 11.4 ng/mL (> or = 4.0); Vitamin B12 454 pg/mL (200-900)
[2024-08-17 13:53] LABS: Creatinine Urine 266.31 mg/dL; Microalbum/Creatinine Ratio Ur 57.8 ug/mg cr (<30)
== END 2024-08-17 10:02 | disposition home or self-care (01) ==
LOC: HO.LAB 10:01
PROVIDERS: Absent Provider Internal Medicine; PCP Internal Medicine; Visit Provider Orthopaedic Surgery
DX: E78.5 Hyperlipidemia, unspecified (principal); E53.8 Deficiency of other specified B group vitamins; R80.9 Proteinuria, unspecified; E55.9 Vitamin D deficiency, unspecified; D64.9 Anemia, unspecified; E11.65 Type 2 diabetes mellitus with hyperglycemia; M25.562 Pain in left knee; M25.561 Pain in right knee; M17.12 Unilateral primary osteoarthritis, left knee
CPT/HCPCS: 36415; 80053; 80061; 82043; 82306; 82570; 82607; 82746; 83540; 85025; 99212

== ENCOUNTER 2024-08-17 10:01 | Outpatient (AMB) | payer OTHER, SELFPAY ==
--- NOTE | 2024-08-17 10:27 | MHC.OFFVIS ---
Intake Visit Reasons: OV- discuss RT TKA Intake Note: Liborio is a 58 year old male who presents today for a follow up visit of his bilateral knee pain to discuss possible Left TKA. Hx of DM & Methadone. Last seen with Gerardo where he reported that he was previously treated at [facility], where cortisone injections were done as well as arthroscopy on both of his knees about 4-5 years ago. Patient reports pain is located in at the anterior and posterior aspect of knees with his left knee being the worse. Allergies No Known Allergies (No Known Allergies*) Allergy (Verified 07/30/24 15:06) HPI HPI OV- discuss RT TKA: Details: This is a 58-year-old gentleman with longstanding bilateral, left greater than right, knee pain. He has a varus deformity and walks with a limp. He uses a cane. He states he can walk for about 20-30 minutes but with pain. He has had multiple injections over the past several years and has had knee arthroscopy at an outside clinic which has been unhelpful. He is diabetic but his diabetes is better controlled and he would like to discuss surgery. [facility] Medical History (Updated 07/30/24 @ 15:24 by Sara Albright MD) Mild major depression Exposure to STD Polysubstance abuse Surgical History History of arthroscopy of left knee Family History Mother Diabetes mellitus Hypertension Father No problems noted. Other Substance use disorder Social History Housing: Apartment Alcohol intake: never Patient Tobacco Use Status: Former Tobacco user Tobacco use type: Cigarette Cigarettes Per Day: 7 e-Cigarette/Vaping Use: Never Used Second Hand Smoke Exposure: Yes service: No Current occupational status: unemployed and disabled Cognitive needs: No Hearing needs: No Vision needs: No Physical Exam Extrem Other: Pleasant gentleman in no acute distress. His gait is notable for varus alignment and left knee antalgia. He has tenderness to palpation medial compartment bilateral knees. Varus alignment is proximally 20 degrees. He has 3-130 degrees of motion bilaterally. Results Reviewed Results Reviewed: I personally reviewed relevant radiographs. Severe, varus pattern, bilateral knee OA Assessment & Plan Assessment & Plan (1) Arthritis of left knee: Code(s): M17.12 - Unilateral primary osteoarthritis, left knee Category: Medical Plan: This is a 58-year-old gentleman with severe osteoarthritis of the left and right knee. His left knee is more symptomatic. He has had injections and arthroscopic surgery and nothing has helped. He has a cane and he has difficulty with ambulating even short distances. He has a history of drug abuse the has been resolved and he states he has been on methadone for years. He does not drink or engage in any illicit substances. He has had and failed conservative measures and I think it is reasonable to consider arthroplasty. He has a severe gait disturbance in it needs in his assistive device to get around. I explained the surgery to him. I explained the risks, benefits and alternatives of surgery to him including, but not limited to, the risk of infection, stiffness, aseptic loosening, medical complications associated with surgery such as blood clots, pulmonary emboli. He expressed understanding and he would like to proceed forward. His hemoglobin A1c a year ago was 10 and how it is 6 and so he is doing very well with his health and would like to get his knees taken care of so that he can exercise more comfortably. Coding Level of Care Code Est Pt Level 4 (83184) Diagnoses Arthritis of left knee M17.12
== END 2024-08-17 10:48 | disposition home or self-care (01) ==
LOC: HO.HOS 10:02
PROVIDERS: PCP Internal Medicine; Visit Provider Orthopaedic Surgery
DX: M17.12 Unilateral primary osteoarthritis, left knee (principal)
CPT/HCPCS: 99214

== ENCOUNTER → 2024-08-27 13:04 | Outpatient (BNV) | payer OTHER, SELFPAY | PROVIDERS: PCP Internal Medicine; Visit Provider Internal Medicine Cardiovascular Disease | DX: Z01.810 Encounter for preprocedural cardiovascular examination (principal) | CPT/HCPCS: 93010 ==

== ENCOUNTER 2024-08-28 09:03 | Outpatient (AMB) | payer OTHER, SELFPAY ==
--- OUTSIDE RECORDS SUMMARY | 2024-08-22 06:00 | XMS_ITS ---
Author Organization [facility] Address [address] [place] [phone] Care Team Providers Care Comic Book Designer Name Role Phone [facility] Primary Care Provider Un available Mariana Macias Unavailable Encounters Encounter Location Date Provider Diagnosis [facility] [address] [place] [phone] 08/22/2024 Mariana Macias Plan Of Treatment No Information Progress Notes * Koki DYSONOB:1965 ( 58 yo M)Acc No.[id number]:08/22/2024 Case Management New Patient: Trinidad WILLARDrge Provider: Juan Macias :1965 A ge:58 Y S ex:Male Date:08/22/2024 Address:[address], [id number] Pcp:[facility] Subjective: * Chief Complaints: * * HPI: S ocial Service: Referral Source w alk-in. I nterpretation for medical provider alessandra mcdermott, Mail flower buncher or picker. Objective: Assessment: Plan: * Treatment: * Images: Billing Information: * Visit Code: * Procedure Codes: Care Plan Details* * Electronic signature of Ozzie Macias on 08/28/2024 at 09:30 AM EDT Sign off status: Pending * Provider: Juan Macias Date: 08/22/2024 Generated for Jose ott/Faalec/eTransmitting on: 08/28/2024 09:30 AM EDT History and Physical Notes * HPI (History of Present Illness) Category Sub-Category Detail Notes Category Not es Social Service Referral Source walk-in Interpretation for medical provider hous ing, Mail flower buncher or picker
[2024-08-28 09:08] VITALS: BP 162/100; PULSE 69; O2SAT 96; BMI 36.4
--- NOTE | 2024-08-28 09:08 | MHC.PC.OV ---
Vital Signs 08/28/24 09:08 08/28/24 20:14 Height 5 ft 11 in Weight 261 lb BMI 36.4 BP 162/100 H 160/90 H Blood Pressure Location Lt brachial Lt brachial Position Sitting Sitting Pulse 69 Pulse Source Pulse Oximeter Pulse Oximetry (%) 96 Oxygen Delivery Method Room Air Intake Visit Reasons: Pre-operative H&P 10/03 Dr desai Flight Control Specialist Required: No Accompanied by: Self / Same As Patient Allergies No Known Allergies (No Known Allergies*) Allergy (Verified 08/28/24 09:20) Medication List - Last Reconciled 08/28/24 by Sara Albright MD blood pressure test kit-large (Advocate Blood Pressure Monitor kit) As directed blood sugar diagnostic (FreeStyle Lite Strips) Use 1 strip once a day blood-glucose meter (FreeStyle Lite Meter kit) As directed clonidine HCl 0.1 mg PO TID 90 days dulaglutide (Trulicity) 1.5 mg (0.5 mL) subcut QWEEK 4 weeks ibuprofen 800 mg PO Q8H PRN lancets (FreeStyle Lancets) Use 1 lancet once a day lisinopril 40 mg PO DAILY 90 days melatonin 20 mg (2 x 10 mg) PO BEDTIME 90 days metformin 1,000 mg PO BID 90 days methadone 185 mg PO DAILY nicotine (polacrilex) 4 mg buccal Q8H PRN 30 days sertraline 25 mg PO BEDTIME Tobacco use date assessed: 07/30/24 Dental Screening Dental Screen Date: 07/30/24 HPI HPI Comments History of Present Illness Details The patient is a 58-year-old male presenting with a pre-operative evaluation for a total knee replacement surgery. He has a history of osteoarthritis affecting both knees, with the left knee scheduled for surgery. The patient has a history of hypertension, which is currently managed with clonidine and lisinopril. His blood pressure was noted to be elevated, and an increase in clonidine dosage was recommended. The patient also has Type 2 Diabetes Mellitus, managed with metformin and Trulicity. His last HbA1c was 7.1, showing improvement from a previous level of 10. He reports a history of depression and anxiety, for which he takes sertraline. The patient has a history of vitamin D deficiency, which is common in the region. Proteinuria was noted in recent lab results, with a plan to repeat testing in four months and consider nephrology consultation if necessary. Social history reveals that the patient smokes approximately 3-5 cigarettes a day and is attempting to quit using nicotine lozenges. He does not consume alcohol. [facility] Medical History (Updated 08/28/24 @ 20:16 by Sara Albright MD) COVID-19 Arthritis HTN (hypertension) Diabetes Mild major depression Exposure to STD Polysubstance abuse Surgical History History of umbilical hernia repair Hx of arthroscopy of right knee History of arthroscopy of left knee Family History Mother Diabetes mellitus Hypertension Father No problems noted. Other Substance use disorder Social History Housing: Apartment Are you a primary health care attorney to a significant other at home: No Do you presently have visiting nurse or other home services: No Alcohol intake: never Patient Tobacco Use Status: Current everyday Tobacco user Tobacco use type: Cigarette Cigarettes Per Day: 5 e-Cigarette/Vaping Use: Never Used Second Hand Smoke Exposure: Yes service: No Current occupational status: unemployed and disabled Cognitive needs: No Hearing needs: No Vision needs: No Questionnaire Thrive Questionnaire Date Thrive assessed: 07/28/24 I am a: Patient What is your living situation today?: I do not have a steady places to live I am temporarily staying with others Within the past 12 months, did the food you bought not last and you didn't have the money to get more?: Often true Within the past 12 months, did you worry whether your food would run out before you got money to buy more?: Often true Do you have trouble paying for medicines?: Yes Do you have trouble getting transportation to medical appointments?: Yes Do you have trouble paying your heating and electricity bill?: No Do you have trouble taking care of your child, family member or friend?: Yes Do you have trouble with day-to-day activities such as bathing, preparing meals, shopping, managing finances, etc.?: Yes Are you currently unemployed and looking for a job?: Yes Are you interested in more education?: No THRIVE Score: 4 SHELLEY-7 AMB Questionnaire SHELLEY-7 Date SHELLEY - 7 assessed: 07/30/24 Source: Developed by Drs. Dario Christopher, Tia Lopez, Vladimir Soto and colleagues, with an educational yunior from [employer]. Review of Systems Const All systems reviewed & are unremarkable except as noted in HPI and below Card Denies chest pain at rest, Denies chest pain with activity, Denies edema, Denies irregular heart rhythm, Denies claudication, Denies dyspnea, Denies dyspnea on exertion, Denies orthopnea, Denies paroxysmal nocturnal dyspnea and Denies slow heart rate Resp Denies cough, Denies dyspnea and Denies dyspnea on exertion GI Denies abdominal pain, Denies change in bowel habits, Denies excessive flatus, Denies nausea and Denies vomiting Denies urinary hesitancy, Denies urinary incontinence and Denies urinary urgency Musc Denies atrophy, Denies deformity and Denies limited range of motion Physical exam (Primary Care) Vital Signs: Last Vital Signs Pulse 69 08/28/24 09:08 BP 162/100 H 08/28/24 09:08 Pulse Ox 96 08/28/24 09:08 Oxygen Delivery Method Room Air 08/28/24 09:08 BMI result Body Mass Index 22.5 BMI Assessment/Plan discussion: High BMI High, discussed plan: lifestyle, weight reduction, dietary and physical activity Tobacco/Smoking Status: Tobacco use Status Tobacco use date assessed 07/30/24 08/28/24 09:11 Patient Tobacco Use Status Current everyday Tobacco 08/28/24 09:11 Tobacco use type Cigarette 08/28/24 09:11 e-Cigarette/Vaping Use Never Used 08/28/24 09:11 Are you ready to quit: Yes Tobacco cessation counseling provided: Yes Items discussed: Nicotine replacement Relapse Prevention: discussed the importance of a supportive environment, discussed extending NRT, discussed negative mood or depression after quitting, weight gain after smoking is common and discussed dietary, exercise and/or lifestyle changes Number of minutes spent counselin CPT code: 16290 - 4-10 Minutes Thrive Assessment: Date of Thrive Assessment Date Thrive assessed 07/28/24 08/28/24 09:11 Resp Effort & Inspection: normal respiratory effort Auscultation: clear to auscultation bilaterally Cardio Jugular venous distension: no JVD Rate: regular rate Rhythm: regular rhythm Heart sounds: S1 normal heart sound present and S2 normal heart sound present Extrem General: Yes full ROM Coding Level of Care Code Est Pt Level 4 (84166) Complex EM visit Add On G2211 Diagnoses Pre-op evaluation Z01.818 Arthritis of both knees M17.0 Moderate recurrent major depression F33.1 Essential hypertension I10 Type 2 diabetes mellitus with hyperglycemia, without long-term current use of insulin E11.65 Diabetes mellitus group home insulin use: without group home use Diabetes mellitus complication status: with hyperglycemia Microalbuminuria R80.9 Additional Codes Vital Signs *Quality* - CPT code: 20432 - 4-10 Minutes ([id number]) Time Spent (min) 25 Assessment & Plan Assessment & Plan (1) Pre-op evaluation: Code(s): Z01.818 - Encounter for other preprocedural examination Category: Medical (2) Arthritis of both knees: Code(s): M17.0 - Bilateral primary osteoarthritis of knee Category: Medical (3) Moderate recurrent major depression: Code(s): F33.1 - Major depressive disorder, recurrent, moderate Category: Medical (4) Essential hypertension: Code(s): I10 - Essential (primary) hypertension Category: Medical (5) Type 2 diabetes mellitus: Code(s): E11.9 - Type 2 diabetes mellitus without complications Category: Medical Qualifiers: Diabetes mellitus group home insulin use: without terminal worker use Diabetes mellitus complication status: with hyperglycemia Qualified Code(s): E11.65 - Type 2 diabetes mellitus with hyperglycemia (6) Microalbuminuria: Code(s): R80.9 - Proteinuria, unspecified Category: Medical Plan The patient is scheduled for a total knee replacement surgery on the left knee due to osteoarthritis. Pre-operative evaluation includes managing hypertension by increasing clonidine dosage and monitoring blood pressure in two weeks. Diabetes management is ongoing with metformin and Trulicity, with a plan to recheck HbA1c in four months. Proteinuria will be re-evaluated in four months, and a nephrology consultation may be considered if necessary. The patient is advised to quit smoking to improve surgical outcomes, using nicotine lozenges as an aid. Patient was informed and verbally consented to the use of an ambient scribe for clinic note documentation during this visit. Orders: Orders Comprehensive [place]. Panel Fast 4 Months E11.65 - Type 2 diabetes mellitus with hyperglycemia Lipid Panel 4 Months E78.5 - Hyperlipidemia, unspecified Microalbumin, Random (w Creat) 4 Months R80.9 - Proteinuria, unspecified Referrals Nephrology Referral R80.9 - Proteinuria, unspecified Medications: New clonidine HCl 0.2 mg PO TID 90 tabs 2RF 30 days Discontinued clonidine HCl Discontinued Reason: Patient Completed Course 0.1 mg PO TID 90 days 270 tabs 1RF I10 - Essential (primary) hypertension
[2024-08-28 20:14] VITALS: BP 160/90
== END 2024-08-28 09:32 | disposition home or self-care (01) ==
LOC: HO.HMCH 09:05
PROVIDERS: PCP Internal Medicine; Visit Provider Internal Medicine
DX: Z01.818 Encounter for other preprocedural examination (principal); M17.0 Bilateral primary osteoarthritis of knee; F33.1 Major depressive disorder, recurrent, moderate; I10 Essential (primary) hypertension; E11.65 Type 2 diabetes mellitus with hyperglycemia; R80.9 Proteinuria, unspecified

== ENCOUNTER → 2024-08-28 09:03 | Outpatient (BNVA) | payer OTHER, SELFPAY | PROVIDERS: PCP Internal Medicine; Visit Provider Internal Medicine | DX: Z01.818 Encounter for other preprocedural examination (principal); M17.0 Bilateral primary osteoarthritis of knee; E11.9 Type 2 diabetes mellitus without complications; F41.9 Anxiety disorder, unspecified; F33.1 Major depressive disorder, recurrent, moderate; I10 Essential (primary) hypertension; E11.65 Type 2 diabetes mellitus with hyperglycemia; R80.9 Proteinuria, unspecified; Z79.899 Other long term (current) drug therapy | CPT/HCPCS: 99212 ==

== ENCOUNTER → 2024-09-03 08:58 | Outpatient (BNVA) | payer OTHER, SELFPAY | PROVIDERS: PCP Internal Medicine | DX: Z01.818 Encounter for other preprocedural examination (principal) ==

== ENCOUNTER 2024-09-12 09:03 | Outpatient (REF) | payer OTHER, SELFPAY ==
[2024-09-12 14:03] LABS: Appearance Urine Cloudy; Glucose Urine UA Negative (Negative); PH 5.5 (5.0-9.0); Specific Gravity - Urine >= 1.030 (1.005-1.025); UMIC TRIGGER UA YES
[2024-09-13 05:12] LABS: HBS Num1 5.16 mIU/mL (0-7.99); HBc Num1 0.24 S/CO (0.00-0.79); HBsAGNum1 0.28 S/CO (0.00-0.99); HIV Num 1 0.06 S/CO (0.00-0.99); Hepatitis B Surface Antigen Negative (Negative); ~HepC Num1 7.82 S/CO (0.00-0.79); ~Hepatitis B Surface Antibody NONREACTIVE (Nonreactive); ~Hepatitis C Antibody Reactive (Nonreactive)
[2024-09-17 10:38] LABS: Anti Nuclear Antibody Screen NEGATIVE (NEGATIVE)
[2024-09-19 17:38] LABS: Kappa, Serum 337 mg/dL (176-443); Kappa/Lambda Ratio, Serum 1.88 (1.29-2.55); Lambda, Serum 179 mg/dL (91-240)
== END 2024-09-12 09:04 | disposition home or self-care (01) ==
LOC: HO.HKASLDS 09:03
PROVIDERS: PCP Internal Medicine; Referring Provider Internal Medicine; Visit Provider Internal Medicine Critical Care Medicine
DX: I10 Essential (primary) hypertension (principal); E11.65 Type 2 diabetes mellitus with hyperglycemia; R80.9 Proteinuria, unspecified; E66.01 Morbid (severe) obesity due to excess calories; F17.210 Nicotine dependence, cigarettes, uncomplicated; Z68.37 Body mass index [BMI] 37.0-37.9, adult; Z79.84 Long term (current) use of oral hypoglycemic drugs; Z79.85 Long-term (current) use of injectable non-insulin antidiabetic drugs; Z79.899 Other long term (current) drug therapy
CPT/HCPCS: 36415; 81001; 81003; 83883; 86038; 86704; 86706; 86803; 87340; 87389; 99202

== ENCOUNTER 2024-09-12 09:03 | Outpatient (AMB) | payer OTHER, SELFPAY ==
--- OUTSIDE RECORDS SUMMARY | 2024-08-22 06:00 | XMS_ITS ---
Author Organization [facility] Address [address] [place] [phone] Care Team Providers Care Binding Machine Operator Name Role Phone [facility] Primary Care Provider Un available Mariana Macias Unavailable Encounters Encounter Location Date Provider Diagnosis [facility] [address] [place] [phone] 08/22/2024 Mariana Macias Plan Of Treatment No Information Progress Notes * Koki DYSONOB:1965 ( 58 yo M)Acc No.[id number]:08/22/2024 Case Management New Patient: Trinidad WILLARDrge Provider: Juan Macias :1965 A ge:58 Y S ex:Male Date:08/22/2024 Address:[address], [id number] Pcp:[facility] Subjective: * Chief Complaints: * * HPI: S ocial Service: Referral Source w alk-in. I nterpretation for medical provider alessandra mcdermott, Mail supervisor opening and picking. Objective: Assessment: Plan: * Treatment: * Images: Billing Information: * Visit Code: * Procedure Codes: Care Plan Details* * Electronic signature of Ozzie Macias on 09/12/2024 at 09:19 AM EDT Sign off status: Pending * Provider: Juan Macias Date: 08/22/2024 Generated for Jose ott/Faalec/eTransmitting on: 0 09/12/2024 09:19 AM EDT History and Physical Notes * HPI (History of Present Illness) Category Sub-Category Detail Notes Category Not es Social Service Referral Source walk-in Interpretation for medical provider hous ing, Mail supervisor opening and picking
--- NOTE | 2024-09-12 09:06 | HO.NEPHOV ---
Vital Signs 09/12/24 09:07 Height 5 ft 11 in Weight 269 lb BMI 37.5 BP 140/82 H Blood Pressure Location Lt brachial Position Sitting Pulse 73 Pulse Source Pulse Oximeter Pulse Oximetry (%) 94 Oxygen Delivery Method Room Air Intake Visit Reasons: INP: Proteinuria-Conf Tube Fitter Required: No Accompanied by: Self / Same As Patient Allergies No Known Allergies (No Known Allergies*) Allergy (Verified 09/12/24 09:09) HPI Comments Details: 58-year-old gentleman with past medical history of hypertension, diabetes mellitus, osteoarthritis is here for evaluation of proteinuria. Hypertension: Since currently on clonidine 0.2 TID and lisinopril 40 mg Diabetes mellitus: On metformin and Trulicity, last HbA1c 7.1 He is a chronic smoker [facility] Medical History COVID-19 Arthritis HTN (hypertension) Diabetes Mild major depression Exposure to STD Polysubstance abuse Surgical History History of umbilical hernia repair Hx of arthroscopy of right knee History of arthroscopy of left knee Family History Mother Diabetes mellitus Hypertension Father No problems noted. Other Substance use disorder Social History Housing: Apartment Are you a primary intensive care ambulance paramedic to a significant other at home: No Do you presently have visiting nurse or other home services: No Alcohol intake: never Patient Tobacco Use Status: Current everyday Tobacco user Tobacco use type: Cigarette Cigarettes Per Day: 5 e-Cigarette/Vaping Use: Never Used Second Hand Smoke Exposure: Yes service: No Current occupational status: unemployed and disabled Cognitive needs: No Hearing needs: No Vision needs: No Review of Systems Const Details: Const Denies body aches, Denies chills, Denies excessive sweating and Denies fatigue Eyes Denies blurry vision and Denies change in vision ENT Denies bleeding gums and Denies change in voice Card Denies chest pain and Denies leg ulcers Resp Denies cough and Denies excessive phlegm production GI Denies abdominal pain and Denies bloating Denies hematuria, Denies urinary frequency and Denies difficulty voiding Musc Denies abnormal gait Neuro Denies Neuro-related abnormal movements, Denies abnormal gait and Denies behavioral changes Psych Denies behavioral changes and Denies change in appetite Endo Denies change in body appearance, Denies cold intolerance, Denies excessive sweating and Denies fatigue Physical Exam Vital Signs: Last Vital Signs Pulse 73 09/12/24 09:07 BP 140/82 H 09/12/24 09:07 Pulse Ox 94 09/12/24 09:07 Oxygen Delivery Method Room Air 09/12/24 09:07 BMI result Body Mass Index 37.5 General: Not in any acute distress, comfortable, sitting on the chair Nutritional Appearance: well nourished and obese Eyes: appearance normal, both eyes and all related structures; Alignment and Position: alignment normal and position normal Neck: No lymphadenopathy, no thyromegaly Resp: bilateral air entry equal, no added sounds present Cardio: Regular rate, regular rhythm; Heart sounds: S1 normal heart sound present and S2 normal heart sound present, ++edema GI: soft, nontender, no guarding, no hepatosplenomegaly : bladder normal to inspection, bladder normal to palpation, no renal angle tenderness Skin: no rashes or lesions noted and elasticity normal Neuro: oriented to person, oriented to place, oriented to time and moves all extremities Results Reviewed Nephrology Results: Hgb, (14.0-18.0) 14.0 g/dl 08/17/24 WBC, (4.8-10.8) 10.4 X10*3/uL 08/17/24 Plt Count, (160-400) 246 X10*3/uL 08/17/24 Sodium, (135-145) 139 mmol/L 08/17/24 Potassium, (3.3-5.1) 4.3 mmol/L 08/17/24 Chloride, (96-108) 105 mmol/L 08/17/24 Carbon Dioxide, (22-29) 27 mmol/L 08/17/24 BUN, (9-16) 13 mg/dL 08/17/24 Creatinine, (0.5-1.4) 1.05 mg/dL 08/17/24 Calcium, (8.4-10.2) 9.5 mg/dL 08/17/24 Urine Creatinine 266.31 mg/dL 08/17/24 Assessment & Plan Assessment & Plan (1) Hypertension: Code(s): I10 - Essential (primary) hypertension Category: Medical Qualifiers: Hypertension type: primary hypertension Qualified Code(s): I10 - Essential (primary) hypertension (2) Type 2 diabetes mellitus: Code(s): E11.9 - Type 2 diabetes mellitus without complications Category: Medical Qualifiers: Diabetes mellitus complication status: with hyperglycemia Diabetes mellitus intermediate insulin use: without intermission coordinator use Qualified Code(s): E11.65 - Type 2 diabetes mellitus with hyperglycemia (3) Microalbuminuria: Code(s): R80.9 - Proteinuria, unspecified Category: Medical Plan Proteinuria: - possibly secondary to diabetes and obesity - patient has 57 microgram/milligram protein urea, it was 83.6 last year - he is on lisinopril 40 mg - will add spironolactone 25mg daily. - will rule out other etiologies with lab and urine test - has some swelling in the leg possibly from venous disease unlikely from proteinuria - advised to stop smoking Hypertension: - given his diabetes mellitus and proteinuria his systolic blood pressures are less than 130/80mmHg - his blood pressures have been consistently on the higher side in the clinic visit - on lisinopril 40 mg and clonidine 0.2 mg t.i.d. - his potassium level is okay, we will add spironolactone which will also help reducing proteinuria. Diabetes mellitus: - on Trulicity and metformin - will follow him up and if the proteinuria increases we will add SGLT-2 inhibitors - last A1c 7.1 morbid obesity: - lost 30 lbs in the past few months - explained him loosing weight is going to help reduce all the problems including proteinuria Orders: Orders HIV Ab/Ag Today - Type 2 diabetes mellitus with hyperglycemia, I10 - Essential (primary) hypertension, R80.9 - Proteinuria, unspecified Hepatitis B,C Profile Today - Type 2 diabetes mellitus with hyperglycemia, I10 - Essential (primary) hypertension, R80.9 - Proteinuria, unspecified CHIDI Reflex Titer and Pattern Today - Type 2 diabetes mellitus with hyperglycemia, I10 - Essential (primary) hypertension, R80.9 - Proteinuria, unspecified [place]/Lambda Light Chain Serum Today - Type 2 diabetes mellitus with hyperglycemia, I10 - Essential (primary) hypertension, R80.9 - Proteinuria, unspecified UA and rflx microscopic Today E11.65 - Type 2 diabetes mellitus with hyperglycemia, I10 - Essential (primary) hypertension, R80.9 - Proteinuria, unspecified Medications: New spironolactone 25 mg PO DAILY 30 tabs 3RF Coding Level of Care Code New Pt Level 4 (43225) Diagnoses Primary hypertension I10 Hypertension type: primary hypertension Type 2 diabetes mellitus with hyperglycemia, without long-term current use of insulin E11.65 Diabetes mellitus complication status: with hyperglycemia Diabetes mellitus intermediate insulin use: without intermission coordinator use Microalbuminuria R80.9
[2024-09-12 09:07] VITALS: BP 140/82; PULSE 73; O2SAT 94; BMI 37.5
== END 2024-09-12 09:54 | disposition home or self-care (01) ==
LOC: HO.HKAS 09:04
PROVIDERS: PCP Internal Medicine; Referring Provider Internal Medicine; Visit Provider Internal Medicine Critical Care Medicine
DX: I10 Essential (primary) hypertension (principal); E11.65 Type 2 diabetes mellitus with hyperglycemia; R80.9 Proteinuria, unspecified
CPT/HCPCS: 99204

== ENCOUNTER → 2024-09-21 09:13 | Outpatient (BNVA) | payer OTHER, SELFPAY | PROVIDERS: PCP Internal Medicine | DX: Z01.30 Encounter for examination of blood pressure without abnormal findings (principal) | CPT/HCPCS: 99211 ==

== ENCOUNTER 2024-09-27 08:23 | Outpatient (REF) | payer OTHER, SELFPAY ==
--- OUTSIDE RECORDS SUMMARY | 2024-08-22 06:00 | XMS_ITS ---
Author Organization [facility] Address [address] [place] [phone] Care Team Providers Care Tube Puller Name Role Phone [facility] Primary Care Provider Mariana Macias [facility] [phone] Encounters Encounter Location Date Provider Diagnosis [facility] [address] [place] [address] [phone] 08/22/2024 Mariana Macias Plan Of Treatment No Information Progress Notes * Koki DYSONOB:1965 ( 58 yo M)Acc No.[id number]:08/22/2024 Case Management New Patient: Trinidad WILLARDrge Provider: Juan Macias :1965 A ge:58 Y S ex:Male Date:08/22/2024 Address:[address] Pcp:[facility] Subjective: * Chief Complaints: * * HPI: S ocial Service: Referral Source w alk-in. I nterpretation for medical provider Ester cherry flower buncher or picker. Objective: Assessment: Plan: * Treatment: * Images: Billing Information: * Visit Code: * Procedure Codes: Care Plan Details* * Electronic signature of Ozzie Macias on 09/28/2024 at 08:32 AM EDT Sign off status: Pending * Provider: Juan Macias Date: 08/22/2024 Generated for Printi ng/Familkag/eTransmitting on: 09/28/2024 08:32 AM EDT History and Physical Notes * HPI (History of Present Illness) Category Sub-Category Detail Notes Category Not es Social Service Referral Source walk-in Interpretation for medical provider hous ing, Mail flower buncher or picker
== END 2024-09-27 08:24 | disposition home or self-care (01) ==
LOC: HO.HOSX 08:23
PROVIDERS: Visit Provider Physician Assistant
DX: Z13.89 Encounter for screening for other disorder (principal)

== ENCOUNTER 2024-09-28 13:41 | Outpatient (REF) | payer OTHER, SELFPAY | END 2024-09-28 13:42 | disposition home or self-care (01) | LOC: HO.HOSX 13:41 | PROVIDERS: Visit Provider Physician Assistant | DX: Z13.89 Encounter for screening for other disorder (principal) ==

== ENCOUNTER 2024-10-02 09:46 | Outpatient (AMB) | payer OTHER, SELFPAY ==
--- NOTE | 2024-10-02 09:59 | HO.NEPHOV ---
Vital Signs 10/02/24 10:00 Height 5 ft 11 in Weight 264 lb 4 oz BMI 36.9 BP 124/80 Blood Pressure Location Lt brachial Position Sitting Pulse 72 Pulse Source Pulse Oximeter Pulse Oximetry (%) 97 Oxygen Delivery Method Room Air Intake Visit Reasons: 1mon f/u-Conf w/daughter Receivable Manager Required: No Accompanied by: Self / Same As Patient Allergies No Known Allergies (No Known Allergies*) Allergy (Verified 10/02/24 10:00) HPI Comments Details: 58-year-old gentleman with past medical history of hypertension, diabetes mellitus, osteoarthritis is here for followup of proteinuria. no new events gained about 4 lbs since last visit Hypertension: Since currently on clonidine 0.2 TID, lisinopril 40 mg and spironolcatone Diabetes mellitus: On metformin and Trulicity, last HbA1c 7.1 He is a chronic smoker [facility] Medical History COVID-19 Arthritis HTN (hypertension) Diabetes Mild major depression Exposure to STD Polysubstance abuse Surgical History History of umbilical hernia repair Hx of arthroscopy of right knee History of arthroscopy of left knee Family History Mother Diabetes mellitus Hypertension Father No problems noted. Other Substance use disorder Social History Housing: Apartment Are you a primary critical care nurse practitioner to a significant other at home: No Do you presently have visiting nurse or other home services: No Alcohol intake: never Patient Tobacco Use Status: Current everyday Tobacco user Tobacco use type: Cigarette Cigarettes Per Day: 5 e-Cigarette/Vaping Use: Never Used Second Hand Smoke Exposure: Yes service: No Current occupational status: unemployed and disabled Cognitive needs: No Hearing needs: No Vision needs: No Physical Exam Vital Signs: Last Vital Signs Pulse 72 10/02/24 10:00 BP 124/80 10/02/24 10:00 Pulse Ox 97 10/02/24 10:00 Oxygen Delivery Method Room Air 10/02/24 10:00 BMI result Body Mass Index 36.9 General: obese middle aged pleasant male Not in any acute distress Nutritional Appearance: well nourished and overweight Eyes: appearance normal, both eyes and all related structures; Alignment and Position: alignment normal and position normal Neck: No lymphadenopathy, no thyromegaly Resp: bilateral air entry equal, no added sounds present Cardio: Regular rate, regular rhythm; Heart sounds: S1 normal heart sound present and S2 normal heart sound present, + edema GI: soft, nontender, no guarding, no hepatosplenomegaly : bladder normal to inspection, bladder normal to palpation, no renal angle tenderness Skin: no rashes or lesions noted and elasticity normal Neuro: oriented to person, oriented to place, oriented to time and moves all extremities Results Reviewed Nephrology Results: Urine Protein, (Neg-Trace) 30 (1+) mg/dL H 09/12/24 Assessment & Plan Assessment & Plan (1) Hypertension: Code(s): I10 - Essential (primary) hypertension Category: Medical Qualifiers: Hypertension type: primary hypertension Qualified Code(s): I10 - Essential (primary) hypertension (2) Type 2 diabetes mellitus: Code(s): E11.9 - Type 2 diabetes mellitus without complications Category: Medical Qualifiers: Diabetes mellitus long wall mining machine helper insulin use: without long wall mining machine helper use Diabetes mellitus complication status: with hyperglycemia Qualified Code(s): E11.65 - Type 2 diabetes mellitus with hyperglycemia (3) Hepatitis C: Comment: Completed treatment Code(s): B19.20 - Unspecified viral hepatitis C without hepatic coma Category: Medical (4) Microalbuminuria: Code(s): R80.9 - Proteinuria, unspecified Category: Medical Plan Proteinuria: - possibly secondary to diabetes and obesity - patient has 57 microgram/milligram protein urea, it was 83.6 last year - creatinine 1.05, GFR above 60 - he is on lisinopril 40 mg - will add spironolactone 25mg daily. - negative HIV, hepatitis panel except for hepatitis C which he has been treated in the past, CHIDI, serum free light chain - has some swelling in the leg possibly from venous disease unlikely from proteinuria - advised to stop smoking - sent a referral to medical weight management and bariatric surgery Hypertension: - given his diabetes mellitus and proteinuria his systolic blood pressures are less than 130/80mmHg - his blood pressures have been consistently on the higher side in the clinic visit - on lisinopril 40 mg and clonidine 0.2 mg t.i.d. - blood pressure is better after adding spironolactone last visit Diabetes mellitus: - on Trulicity and metformin - will follow him up and if the proteinuria increases we will add SGLT-2 inhibitors - last A1c 7.1 Vitamin D deficiency: - will add vitamin D 50K unit weekly. - will check PTH with next labs morbid obesity: - lost 30 lbs in the past few months - explained him loosing weight is going to help reduce all the problems including proteinuria will followup in 6 months with repeat labs Orders: Orders Basic Metabolic Panel 6 Months E11. - Type 2 diabetes mellitus with hyperglycemia, I10 - Essential (primary) hypertension, R80.9 - Proteinuria, unspecified Total Protein Urine Random 6 Months E11. - Type 2 diabetes mellitus with hyperglycemia, I10 - Essential (primary) hypertension, R80.9 - Proteinuria, unspecified Microalbumin, Random (w Creat) 6 Months E11. - Type 2 diabetes mellitus with hyperglycemia, I10 - Essential (primary) hypertension, R80.9 - Proteinuria, unspecified UA and rflx microscopic 6 Months . - Type 2 diabetes mellitus with hyperglycemia, I10 - Essential (primary) hypertension, R80.9 - Proteinuria, unspecified Creatinine Urine 6 Months E11. - Type 2 diabetes mellitus with hyperglycemia, I10 - Essential (primary) hypertension, R80.9 - Proteinuria, unspecified Parathyroid Hormone Intact 6 Months E11. - Type 2 diabetes mellitus with hyperglycemia, I10 - Essential (primary) hypertension, R80.9 - Proteinuria, unspecified Vitamin D 25-OH Total 6 Months E11. - Type 2 diabetes mellitus with hyperglycemia, I10 - Essential (primary) hypertension, R80.9 - Proteinuria, unspecified Referrals Bariatric Surgery Referral B19.20 - Unspecified viral hepatitis C without hepatic coma, . - Type 2 diabetes mellitus with hyperglycemia, I10 - Essential (primary) hypertension Medical Weight Management Referral E66.01 - Morbid (severe) obesity due to excess calories Medications: New ergocalciferol (vitamin D2) 1,250 mcg PO QWEEK 14 caps 0RF Coding Level of Care Code Est Pt Level 4 (37851) Diagnoses Primary hypertension I10 Hypertension type: primary hypertension Type 2 diabetes mellitus with hyperglycemia, without long-term current use of insulin Diabetes mellitus long wall mining machine helper insulin use: without long wall mining machine helper use Diabetes mellitus complication status: with hyperglycemia Hepatitis C B19.20 Microalbuminuria R80.9
[2024-10-02 10:00] VITALS: BP 124/80; PULSE 72; O2SAT 97; BMI 36.9
--- OUTSIDE RECORDS SUMMARY | 2024-10-02 10:12 | XMS_ITS | Patient Health Record ---
Author Organization [facility] Address [address], [place] [id number] Care Team Providers Care Labor Crew Supervisor Name Role Phone [facility] Primary Care Provider Mariana Macias [facility] Reason For Referral No Information Encounters Encounter Location Date Provider Diagnosis [facility] [address] [place] [address] [id number] 09/04/2024 Mariana Maicas [facility] [address] [place] [address] [id number] 09/13/2024 Mariana Macias [facility] [address] [place] [address] [id number] 09/13/2024 Mariana Macias [facility] [address] [place] [address] [id number] 08/22/2024 Mariana Macias Plan Of Treatment No Information Insurance Providers Payer Name Payer Address Payer Phone Subscriber Number Group Number Insured Name Patient Relationship to Insured Coverage Start Date Coverage End Date [facility] [id number] [place] [phone] Liborio Dyson Self - patient is the insured 5 5
== END 2024-10-02 10:39 | disposition home or self-care (01) ==
LOC: HO.HKAS 09:47
PROVIDERS: PCP Internal Medicine; Visit Provider Internal Medicine Critical Care Medicine
DX: I10 Essential (primary) hypertension (principal); E11.65 Type 2 diabetes mellitus with hyperglycemia; B19.20 Unspecified viral hepatitis C without hepatic coma; R80.9 Proteinuria, unspecified
CPT/HCPCS: 99214

== ENCOUNTER → 2024-10-02 09:46 | Outpatient (BNVA) | payer OTHER, SELFPAY | PROVIDERS: PCP Internal Medicine; Visit Provider Internal Medicine Critical Care Medicine | DX: I10 Essential (primary) hypertension (principal); R80.9 Proteinuria, unspecified; E11.65 Type 2 diabetes mellitus with hyperglycemia; B19.20 Unspecified viral hepatitis C without hepatic coma; E66.09 Other obesity due to excess calories | CPT/HCPCS: 99212 ==

== ENCOUNTER 2024-10-04 11:34 | Outpatient (AMB) | payer OTHER, SELFPAY ==
[2024-10-04 12:04] VITALS: BMI 36.8
--- NOTE | 2024-10-04 12:04 | MHC.OFFVIS ---
Vital Signs 10/04/24 12:04 Height 5 ft 11 in Weight 264 lb BMI 36.8 Handedness Right Intake Visit Reasons: Preop Pre-Op: L TKA w/NE 10/10/24 Intake Note: Liborio is a 58 year old male who presents today for a pre operative appointment for his left knee total arthroplasty 10/10/24 NE. Allergies No Known Allergies (No Known Allergies*) Allergy (Verified 10/02/24 10:00) HPI HPI Preop Pre-Op: L TKA w/NE 10/10/24: Details: The patient is a 58-year-old male with a history of end-stage osteoarthritis of the left knee who is scheduled for a total knee arthroplasty on 10/10/[address] Guillory. They have experienced progressive knee pain over the past several years. Pain is described as aching/sharp/throbbing, worsened by prolonged standing, walking, and stair climbing. Conservative treatments including physical therapy, NSAIDs, activity modification, and corticosteroid injections provided only temporary or minimal relief. The patient reports significant limitations in daily activities and decreased quality of life due to pain. No recent history of trauma or infection. Patient had his PCP clearance with Sara Albright MD on 08/28/2024. Patient has a past medical history significant for hypertension currently managed on clonidine and lisinopril. His blood pressure was noted to be elevated and an increase in clonidine dosage was recommended. Patient also has past medical history significant for diabetes type 2 managed with metformin and Trulicity. His last A1c was 7.1 on 07/30/2024. Patient was instructed to stop Trulicity 7 days prior to surgery. He has a history of anxiety and depression for which he takes sertraline. He does have a social history significant for tobacco use smoking roughly 5 cigarettes per day. He was educated on smoking cessation. He denies alcohol consumption. Patient was seen at [facility] on 09/12/2024 for evaluation of proteinuria. Proteinuria is likely secondary due to diabetes and obesity. He is on lisinopril and it was recommended to add spironolactone 25 mg daily. It was noted that the patient had some swelling in the legs possibly from venous disease unlikely from proteinuria. Additionally, he was again advised on smoking cessation. They will continue to follow and if proteinuria increases addition of SGLT-2 inhibitors will be considered at that time. Weight loss discussion was also had at this time. Blood testing later revealed patient is positive for Hep C. Patient is aware and was treated in the past. On 07/20/2022 the patient was also evaluated in the emergency department for chest pain. At that time the impression was patient was exhibiting chest pain, hypertension and prediabetes. He was instructed to follow up with his PCP within 3-5 days. EKG and chest x-rays were negative for any pathology. Patient was last seen with Dr. Guillory in the office on 08/17/2024 for follow up of bilateral knee pain and to discuss possible left total knee arthroplasty. Patient is also on methadone and has a history of drug abuse but has been resolved and has been on the methadone for years. He does not drink or engage any illicit substances. Patient has tried and failed multiple cortisone injections at [facility] as well as knee arthroscopy on both knees about 4-5 years ago. It was noted that the patient suffers from a varus deformity and walks with an antalgic gait using a cane. He is only able to ambulate for roughly 20-30 minutes with pain. EKG obtained on 08/20/2024: Normal sinus rhythm. Normal EKG. No significant change when compared to EKG of 08/23/2023. PT appointment on 08/27/2024: Patient was educated on date of surgery U tox screen and verbalized understanding. Patient does have a positive MRSA nasal PCR. [facility] Medical History COVID-19 Arthritis HTN (hypertension) Diabetes Mild major depression Exposure to STD Polysubstance abuse Surgical History History of umbilical hernia repair Hx of arthroscopy of right knee History of arthroscopy of left knee Family History Mother Diabetes mellitus Hypertension Father No problems noted. Other Substance use disorder Social History Housing: Apartment Are you a primary director long term care to a significant other at home: No Do you presently have visiting nurse or other home services: No Alcohol intake: never Patient Tobacco Use Status: Current everyday Tobacco user Tobacco use type: Cigarette Cigarettes Per Day: 5 e-Cigarette/Vaping Use: Never Used Second Hand Smoke Exposure: Yes service: No Current occupational status: unemployed and disabled Cognitive needs: No Hearing needs: No Vision needs: No Review of Systems Const All systems reviewed & are unremarkable except as noted in HPI and below Physical Exam Vital Signs: BMI result Body Mass Index 36.8 Const General: cooperative, healthy appearing, comfortable, no acute distress, well developed, alert and awake Orientation/consciousness: patient oriented x3 HEENT Head: Yes normal to inspection, Yes normocephalic and Yes atraumatic Eyes General: appearance normal, both eyes and all related structures Neck Neck: Yes normal visual inspection and Yes no lymphadenopathy Resp Effort & Inspection: normal respiratory effort and able to speak in complete sentences Cardio Rate: regular rate Peripheral pulses: Peripheral pulses 2+ throughout GI Inspection: Yes normal to inspection Palpation (GI): Soft to palpation Skin General skin exam: no rashes or lesions noted Neuro General: patient oriented x3 Extrem Other: Left knee varus alignment. Tenderness to palpation medial joint line. Range of motion 0-130. Antalgic gait. NVI. Psych Mental Status: mental status grossly normal Assessment & Plan Assessment & Plan (1) Osteoarthritis of left knee: Code(s): M17.12 - Unilateral primary osteoarthritis, left knee Category: Medical Plan The patient is a 58-year-old male with a history of end-stage osteoarthritis of the left knee who is scheduled for a total knee arthroplasty on 10/10/[address] Guillory. They have experienced progressive knee pain over the past several years. Pain is described as aching/sharp/throbbing, worsened by prolonged standing, walking, and stair climbing. Conservative treatments including physical therapy, NSAIDs, activity modification, and corticosteroid injections provided only temporary or minimal relief. The patient reports significant limitations in daily activities and decreased quality of life due to pain. No recent history of trauma or infection. Patient had his PCP clearance with Sara Albright MD on 08/28/2024. Patient has a past medical history significant for hypertension currently managed on clonidine and lisinopril. His blood pressure was noted to be elevated and an increase in clonidine dosage was recommended. Patient also has past medical history significant for diabetes type 2 managed with metformin and Trulicity. His last A1c was 7.1 on 07/30/2024. Patient was instructed to stop Trulicity 7 days prior to surgery. He has a history of anxiety and depression for which he takes sertraline. He does have a social history significant for tobacco use smoking roughly 5 cigarettes per day. He was educated on smoking cessation. He denies alcohol consumption. Patient was seen at the [facility] on 09/12/2024 for evaluation of proteinuria. Proteinuria is likely secondary due to diabetes and obesity. He is on lisinopril and it was recommended to add spironolactone 25 mg daily. It was noted that the patient had some swelling in the legs possibly from venous disease unlikely from proteinuria. Additionally, he was again advised on smoking cessation. They will continue to follow and if proteinuria increases addition of SGLT-2 inhibitors will be considered at that time. Weight loss discussion was also had at this time. Blood testing later revealed patient is positive for Hep C. Patient is aware and was treated in the past. On 07/20/2022 the patient was also evaluated in the emergency department for chest pain. EKG and chest x-rays were negative for any pathology. He was discharged home and instructed to follow up with his PCP within 3-5 days. Patient was last seen with Dr. Guillory in the office on 08/17/2024 for follow up of bilateral knee pain and to discuss possible left total knee arthroplasty. Patient is also on methadone and has a history of drug abuse but has been resolved and has been on the methadone for years. He does not drink or engage any illicit substances. Patient has tried and failed multiple cortisone injections at [facility] as well as knee arthroscopy on both knees about 4-5 years ago. It was noted that the patient suffers from a varus deformity and walks with an antalgic gait using a cane. He is only able to ambulate for roughly 20-30 minutes with pain. EKG obtained on 08/20/2024: Normal sinus rhythm. Normal EKG. No significant change when compared to EKG of 08/23/2023. PT appointment on 08/27/2024: Patient was educated on date of surgery U tox screen and verbalized understanding. Patient does have a positive MRSA nasal PCR. The patient was educated on the effect of smoking on wound healing, vasoconstriction, increased risk of infection, delayed bone healing, cardiovascular events, increased revision rate, and poorer functional outcomes. Patient reports that he is going to attempt smoking cessation with the use of lozenges. I discussed in detail the procedure and what to expect pre and post operatively. We discussed the risks, benefits and alternatives to the surgery as well as the rehabilitation course. The following topics were reviewed in detail with the patient: Risks: Risks include, but are not limited to infection, bleeding, blood clots, nerve injury, ongoing pain, ongoing swelling, ongoing stiffness, perioperative risk of injury to bones and soft tissues, prosthesis loosening or wear, anesthesia related complications, revision surgery, amputation, and mortality. Expected Benefits: Improved function, reduced pain, better quality of life. Alternatives: Continued non-operative treatment, joint injections, bracing, physical therapy or no surgery. Risks of not moving forward with surgery: Progression of joint disease and damage, worsening function, fracture, and/or pain. The patient had ample opportunity to ask questions. All questions were answered to the patients satisfaction. Patient verbalized understanding and agreed to move forward with left total knee arthroplasty with Dr. Guillory. Surgical consent form was signed by the patient with myself as a witness. X-rays of the left knee which were obtained while in the office today and were reviewed by me, Meghna Love PA-C, revealed osteoarthritis. Postoperative planning: ASA for DVT PPX Continue Methadone that a at current dosing - patient understands pain management postoperatively may be challenging. I reassured the patient to reach out to the nursing staff should pain control be an issue and they will contact us directly to make adjustments as needed. Patient would like to attend [facility] physical therapy outpatient - Order has been placed Patient would like to return home after surgery but would like the assistance of physical therapy evaluation afterwards to decide if rehab placement would be most appropriate. Patient reports he has a walker and shower seat at home Orders: Orders PT Evaluation and Treatment Today Z96.652 - Presence of left artificial knee joint XR knee LT 3V Today M25.569 - Pain in unspecified knee Coding Level of Care Code Global (83223) Diagnoses Osteoarthritis of left knee M17.12
--- OUTSIDE RECORDS SUMMARY | 2024-10-04 12:14 | XMS_ITS | Patient Health Record ---
Author Organization [facility] Address [address], [place] [id number] Care Team Providers Care Car Inspector Name Role Phone [facility] Primary Care Provider Mariana Macias [facility] Reason For Referral No Information Encounters Encounter Location Date Provider Diagnosis [facility] [address] [place] [address] [id number] 09/04/2024 Mariana Macias [facility] [address] [place] [address] [id number] 09/13/2024 Mariana Macias [facility] [address] [place] [address] [id number] 09/13/2024 Mariana Macias [facility] [address] [place] [address] [id number] 08/22/2024 Mariana Macias Plan Of Treatment No Information Insurance Providers Payer Name Payer Address Payer Phone Subscriber Number Group Number Insured Name Patient Relationship to Insured Coverage Start Date Coverage End Date [employer] [place] [employer] [id number] [place] [id number] Liborio Dyson Self - patient is the insured 5 5
== END 2024-10-04 12:30 | disposition home or self-care (01) ==
LOC: HO.HOS 11:35
PROVIDERS: PCP Internal Medicine; Visit Provider Physician Assistant
DX: M17.12 Unilateral primary osteoarthritis, left knee (principal)
CPT/HCPCS: 99024

== ENCOUNTER 2024-10-04 11:34 | Outpatient (REF) | payer OTHER, SELFPAY ==
--- NOTE | ~2024-10-04 | XR_ITS ---
EXAMINATION: XR KNEE, LEFT CLINICAL INFORMATION: M25.569 - Pain in unspecified knee COMPARISON: July 04, 2024. TECHNIQUE: AP view both knees in standing position. Lateral and sunrise views of the left knee. FINDINGS: There is subchondral cyst formation and marginal osteophyte formation sclerosis along the articular surfaces of the medial femoral condyle and medial tibial plateau with the joint space narrowing. Marginal osteophyte formation lateral femoral condyle and lateral tibial plateau. No suprapatellar bursa joint effusion. There is joint space narrowing involving the patellofemoral and to a lesser extent lateral compartment. There is marginal osteophyte formation and endplate sclerosis and joint space narrowing involving medial compartment right knee. No acute cortical disruption or gross malalignment. XR/XR knee LT 3V IMPRESSION: Tricompartmental osteoarthrosis involving mostly the medial compartment. Moderate to severe overall similar since prior exam. Electronically signed by: Elie Cerda MD 10/04/2024 02:10 PM EDT
[2024-10-04 13:38] LABS: Hematocrit 39.8 % (42.0-52.0); Hemoglobin 13.2 g/dl (14.0-18.0); Mean Corpuscular HGB Conc 33.2 g/dl (31.0-36.0); Mean Corpuscular Hemoglobin 26.8 pg (27.0-33.0); Mean Corpuscular Volume 80.9 fL (80.0-98.0); NRBC Abs Auto 0.000 X10*3/uL (0.0-0.012); NRBC Pct Auto 0.0 /100WBC (0.0-0.2); Platelet Count 212 X10*3/uL (160-400); Red Blood Count 4.92 X10*6/uL (4.60-5.80); White Blood Count 9.6 X10*3/uL (4.8-10.8)
[2024-10-04 13:58] LABS: Anion Gap 11 (12-20); Blood Urea Nitrogen 12 mg/dL (9-16); Calcium 9.1 mg/dL (8.4-10.2); Carbon Dioxide 29 mmol/L (22-29); Chloride 106 mmol/L (96-108); Estimated Glomerular Filt Rate > 60; Potassium 4.4 mmol/L (3.3-5.1); Sodium 142 mmol/L (135-145)
== END 2024-10-04 11:35 | disposition home or self-care (01) ==
LOC: HO.HOSX 11:34
PROVIDERS: PCP Internal Medicine; Visit Provider Physician Assistant
DX: Z01.818 Encounter for other preprocedural examination (principal); M17.12 Unilateral primary osteoarthritis, left knee; M25.562 Pain in left knee
CPT/HCPCS: 36415; 73562; 80048; 85027; 99212

== ENCOUNTER → 2024-10-04 11:55 | Outpatient (BNV) | payer OTHER, SELFPAY | PROVIDERS: PCP Internal Medicine; Visit Provider Radiology Diagnostic Radiology | DX: M17.12 Unilateral primary osteoarthritis, left knee (principal) | CPT/HCPCS: 73562 ==

== ENCOUNTER 2024-10-10 08:05 | Day surgery (SDC) | payer OTHER, SELFPAY ==
--- NOTE | 2024-08-27 | ECG_ITS ---
Test Reason : PREOP Blood Pressure : */* mmHG Vent. Rate : 71 BPM Atrial Rate : 71 BPM P-R Int : 184 ms QRS Dur : 88 ms QT Int : 420 ms P-R-T Axes : 13 25 26 degrees QTcB Int : 456 ms Normal sinus rhythm Normal ECG When compared with ECG of 23-Aug-2023 09:35, No significant change was found Referred By: Cecilia Hinton Electronically Signed By: RIDGE HASTINGS MD
[2024-08-27 12:27] VITALS: BP 143/76; PULSE 73; RESP 16; O2SAT 98; BMI 36.7
--- NOTE | 2024-08-27 12:48 | P.CONAN_ITS ---
Documented by User: Cecilia Hinton NP 10/09/24 10:12 HPI - Anesthesia Eval Consult details Narrative: 58yo M For Left Knee Replacement Total, 10/10/24 Medically optimized per PCP - increased dose of clonidine for high BP's and improved on recheck. Follows [facility] renal for proteinuria. Stable at 09/2024 office visit, rec's continued weight loss and smoking cessation to reduce proteinuria. No recent illness No CP/SOB with some upper body free weights, ADLs Hx Polysub abuse: Methadone daily - home rx, denies any other drug use. Verbalized understanding of DOS Utox screen DM: Random home POC 120-180. A1C = 7.1 in 07/2024 Anesthesia Pre-Procedure Meds Is the patient on any of the following meds?: GLP1/DPP4 PMFSH Active Problems Active Problems: All Active Problems Hepatitis C (Acute) Insomnia (Acute) Moderate recurrent major depression (Acute) Essential hypertension (Acute) Arthritis of left knee (Acute) Right knee pain (Acute) Left knee pain (Acute) Screen for colon cancer (Acute) Chest pain (Acute) Physical exam (Acute) Gonorrhea (Acute) Arthritis of both knees (Acute) Hypertension (Acute) Type 2 diabetes mellitus (Acute) Polysubstance abuse (Acute) Past Medical History Medical History COVID-19 Arthritis HTN (hypertension) Diabetes Mild major depression Exposure to STD Polysubstance abuse Family History Family History Mother Diabetes mellitus Hypertension Father No problems noted. Other Substance use disorder Family history of problems with anesthesia: No Surgical History Surgical History History of tonsillectomy History of umbilical hernia repair Hx of arthroscopy of right knee History of arthroscopy of left knee History of Problems with Anesthesia: No Social History Social History Housing: Apartment Are you a primary acute care certified nursing assistant to a significant other at home: No Do you presently have visiting nurse or other home services: No Alcohol intake: never Patient Tobacco Use Status: Current everyday Tobacco user Tobacco use type: Cigarette Cigarettes Per Day: 3 e-Cigarette/Vaping Use: Never Used Second Hand Smoke Exposure: Yes Use of substances other than those prescribed or required for medical reasons: No Have you been hit, kicked, punched, or otherwise hurt by someone within the past year? If so, by whom?: No Are you DNR?: No Advance Directives: No Advance Directives Information Provided: Yes Advance Directives on File: No Poor oral hygiene: No service: No Current occupational status: unemployed and disabled Cognitive needs: No Hearing needs: No Vision needs: No Meds Allergies Allergy/AdvReac Type Severity Reaction Status Date / Time No Known Allergies (No Known Allergy Verified 10/02/24 10:00 Allergies*) Home Medications ?Medication ?Instructions ?Recorded ?Confirmed ?Last Taken ?Type methadone 10 mg/mL oral concentrate 185 mg PO DAILY 09/03/24 10/10/24 History sertraline 100 mg tablet 100 mg PO DAILY 09/12/2410/09/24 History Exam Height,Weight and Vital Signs: Height 5 ft 11 in Weight 119.295 kg Last Vital Signs Pulse 73 08/27/24 12:27 Resp 16 08/27/24 12:27 BP 143/76 H 08/27/24 12:27 Pulse Ox 98 08/27/24 12:27 O2 Del Method Room Air 08/27/24 12:27 Pertinent Lab Results Pertinent Lab Results: Lab Results 08/27/24 10/04/24 Range/Units 12:30 12:31 Nasal Screen MRSA (PCR) POSITIVE A (Negative) Nasal S. aureus Screen POSITIVE A (Negative) Nasal MRSA/S.aureus Interp SEE NOTE Blood Type O Positive Antibody Screen POSITIVE Antibody Identification Inconclusive LUCITA, Polyspecific POSITIVE A Positive LUCITA Work-up IgG=Pos A6j=Ldy A Enhanced Crossmatch See Detail Laboratory Tests 10/04/24 13:25 WBC 9.6 Hgb 13.2 L Hct 39.8 L Plt Count 212 Sodium 142 Potassium 4.4 Chloride 106 Carbon Dioxide 29 BUN 12 Creatinine 1.19 Narrative Narrative: EKG 07/2024 Vent. Rate : 71 BPM Atrial Rate : 71 BPM P-R Int : 184 ms QRS Dur : 88 ms QT Int : 420 ms P-R-T Axes : 13 25 26 degrees QTcB Int : 456 ms Normal sinus rhythm Normal ECG When compared with ECG of 25-Vinnie-2024 09:35, No significant change was found Airway TM Dist: >3cm Neck ROM: Full Loose/Missing/Broken Teeth: Yes (missing molars) Heart: RRR Lungs: CTAB Assessment and Plan Assessment Anesthesia Assessment: Anesthesia Plan Discussed, Smoking Cess. Discussed and PAT Visit Final Anesthetic Review Family History of Problems with Anesthesia: No History of Problems with Anesthesia: No Documented by User: Beth Dash MD 10/10/24 10:57 [facility] Past Medical History Medical History COVID-19 Arthritis HTN (hypertension) Diabetes Mild major depression Exposure to STD Polysubstance abuse Family History Family History Mother Diabetes mellitus Hypertension Father No problems noted. Other Substance use disorder Surgical History Surgical History History of tonsillectomy History of umbilical hernia repair Hx of arthroscopy of right knee History of arthroscopy of left knee Social History Social History Housing: Apartment Are you a primary acute care certified nursing assistant to a significant other at home: No Do you presently have visiting nurse or other home services: No Alcohol intake: never Patient Tobacco Use Status: Current everyday Tobacco user Tobacco use type: Cigarette Cigarettes Per Day: 3 e-Cigarette/Vaping Use: Never Used Second Hand Smoke Exposure: Yes Use of substances other than those prescribed or required for medical reasons: No Have you been hit, kicked, punched, or otherwise hurt by someone within the past year? If so, by whom?: No Are you DNR?: No Advance Directives: No Advance Directives Information Provided: Yes Advance Directives on File: No Poor oral hygiene: No service: No Current occupational status: unemployed and disabled Cognitive needs: No Hearing needs: No Vision needs: No Meds Allergies Allergy/AdvReac Type Severity Reaction Status Date / Time No Known Allergies (No Known Allergy Verified 10/02/24 10:00 Allergies*) Home Medications ?Medication ?Instructions ?Recorded ?Confirmed ?Last Taken ?Type methadone 10 mg/mL oral concentrate 185 mg PO DAILY 09/03/24 10/10/24 History sertraline 100 mg tablet 100 mg PO DAILY 09/12/2410/09/24 History Exam Airway Mallampati Class: III Assessment and Plan Final Anesthetic Review NPO: Yes ASA Class: III Final Preanesthetic Review: No Changes in Pt Med Stat, Meds/Allgs Chart Reviewed, Consent Obtained/Reviewed and Anes Risks/Benef Reviewed Patient Risk: Intermediate Procedure Risk: Intermediate Anesthetic Plan Anesthetic Plan: Spinal, Neuraxial Block:, Regional Block and Agree w/ Assess. and Plan Disposition: Standard PACU
[2024-08-27 14:13] LABS: MRSA Nasal PCR POSITIVE (Negative); SA Nasal PCR POSITIVE (Negative)
[2024-10-10] VITALS (12 sets, daily range): BP systolic 120–172; BP diastolic 72–82; PULSE 66–97; RESP 12–18; TEMP 36.1–37; O2SAT 92–98; BMI 36.7
[2024-10-10 09:51] LABS: Cannabinoid Screen Urine Not Detected (Not Detect)
[2024-10-10] MEDS: Lactated Ringers 1,000 ML 100 ML IVCONT ×2 (10:19→16:01)
[2024-10-10 10:28] LABS: Glucose, Whole Blood 106 mg/dL (60-115)
--- NOTE | 2024-10-10 10:32 | PC.NURSE ---
CALLED PHARMACY TO VERIFY VANCO DOSE. TO BRING TO PACU TO START MEDICATION.
--- NOTE | 2024-10-10 10:42 | MHC.SHP ---
Pre-Procedural Eval Section A - 24 Hr Update-Section A only Date of Service: 10/10/24 The patient is an INPATIENT: No Changes since office visit: No Cold of Flu in the past 2 weeks, No New Medical Problems, No Changes in Medication and No Patient answered all questions The patient has been examined within 24 hours of the surgical procedure. The History & Physical has been completed within 30 days and I have reviewed it.: Yes Section B - Complete if H&P > 30 days Chief Complaint: s/p LTKA Allergies: Allergies Allergy/AdvReac Type Severity Reaction Status Date / Time No Known Allergies (No Known Allergy Verified 10/02/24 10:00 Allergies*) Plan I have reviewed the history and physical and performed a pertinent physical examination on my patient. No changes have occurred unless specified. Time Spent With Patient Time: Total time managing care of this patient today ____ minutes.
[2024-10-10] MEDS: vancomycin/NS 2,000 MG/500 ML PLAST..BAG 250 MG IV (10:47)
--- NOTE | 2024-10-10 13:58 | PM.OP ---
Brief Operative Note Date of Service: 10/10/24 Pre-op diagnosis: Left knee OA Post-op diagnosis: same Procedure: Left TKA Implants: [place] triathlon cemented posterior stabilized 06/02/12ps/35a Surgeon: Martin Guillory MD Anesthesia: regional Was an Leak Detection Engineer used for this Procedure?: Yes Leak Detection Engineer: Meghna Love Estimated blood loss (mL): 100 Tourniquet time (min): 70 IV fluids (mL): 1,000 Pathology: other Condition: stable Disposition: PACU
[2024-10-10] MEDS: 0.9 % Sodium Chloride Flush 3 ML SYRINGE IVFLUSH (16:10)
--- NOTE | 2024-10-10 16:24 | PM.IMCN ---
History of Present Illness Data of Consult Service Date: 10/10/24 Requesting physician: Meghna Love Primary Care Provider: MD RIGOBERTO Chambers Reason for consult: Routine medical management This is a 58-year-old male with history of diabetes, hypertension here for elective left total knee arthroplasty. Hospitalists were asked to see the patient in consultation for assistance in management of chronic medical comorbidities. Patient was seen after surgery, patient was awake, alert overall feeling well. Denies any chest pain, shortness of breath, abdominal pain. Reporting mild pain beginning in the left knee. Per nurse report patient was noted to have urinary retention and was straight catheterization Review of Systems Review of Systems: Yes all other systems are reviewed and are negative Constitutional: Constitutional: Denies chills and Denies fever(s) Cardiovascular: Cardiovascular: Denies chest pain, Denies palpitations and Denies dyspnea Respiratory: Respiratory: Denies cough and Denies dyspnea Gastrointestinal: Gastrointestinal: Denies abdominal pain, Denies diarrhea, Denies nausea and Denies vomiting Endocrine: Endocrine: Denies palpitations [facility] Medical History COVID-19 Arthritis HTN (hypertension) Diabetes Mild major depression Exposure to STD Polysubstance abuse Family History Mother Diabetes mellitus Hypertension Father No problems noted. Other Substance use disorder Surgical History History of tonsillectomy History of umbilical hernia repair Hx of arthroscopy of right knee History of arthroscopy of left knee Social History Housing: Apartment Are you a primary primary care md to a significant other at home: No Do you presently have visiting nurse or other home services: No Alcohol intake: never Patient Tobacco Use Status: Current everyday Tobacco user Tobacco use type: Cigarette Cigarettes Per Day: 5 Years Smoked: 20 Smoked in Last 30 Days: Yes e-Cigarette/Vaping Use: Never Used Patient Interested in Nicotine Replacement: No Patient Given Instructions on How to Stop Smoking: No Second Hand Smoke Exposure: No Use of substances other than those prescribed or required for medical reasons: No Have you been hit, kicked, punched, or otherwise hurt by someone within the past year? If so, by whom?: No Are you DNR?: No Advance Directives: No Advance Directives Information Provided: Yes Advance Directives on File: No Poor oral hygiene: No service: No Current occupational status: unemployed and disabled Cognitive needs: No Hearing needs: No Vision needs: No Meds Allergies Allergy/AdvReac Type Severity Reaction Status Date / Time No Known Allergies (No Known Allergy Verified 10/02/24 10:00 Allergies*) Active Medications: Current Medications Acetaminophen (Acetaminophen 325 Mg Tablet) 650 mg PO Q6H PRN PRN Reason: Pain, Mild 1-3,fever,headache Aspirin (Aspirin 325 Mg Tablet) 325 mg PO BID RIKY Celecoxib (Celecoxib 200 Mg Capsule) 200 mg PO BID RIKY Docusate Sodium (Docusate Sodium 100 Mg Capsule) 100 mg PO BID RIKY Hydromorphone HCl (Hydromorphone Hcl 0.5 Mg/0.5 Ml Syringe) 0.5 mg IVPUSH Q4H PRN; Protocol PRN Reason: Pain, Severe (Pain Scale 7-10) Lactated Ringer's (Lr) 1,000 mls @ 100 mls/hr IVCONT .Q10H RIKY Last Admin: 10/10/24 16:01 Dose: 100 mls/hr Vancomycin HCl 1,500 mg/ (Sodium Chloride) 500 mls @ 333.333 mls/hr IV POSTOP ONE Stop: 10/11/24 00:29 Lisinopril (Lisinopril 40 Mg Tablet) 40 mg PO DAILY [facility]; Protocol Magnesium Hydroxide (Milk Of Magnesia 30 Ml Oral.Susp) 30 ml PO DAILY PRN PRN Reason: Constipation Metformin HCl (Metformin Hcl 1,000 Mg Tablet) 1,000 mg PO BID [facility] Methadone HCl (Methadone Hcl 20 Mg/2 Ml Oral.Conc) 185 mg PO DAILY [facility] Nicotine Polacrilex (Nicotine Polacrilex Lozenge 4 Mg Lozenge) 4 mg BUCCAL Q8H PRN PRN Reason: Nicotine Cravings Non-Formulary Medication (Melatonin) 20 mg PO BEDTIME [facility] Ondansetron HCl (Ondansetron Hcl 4 Mg/2 Ml Vial) 4 mg IVPUSH Q8H PRN PRN Reason: Nausea and Vomiting Oxycodone HCl (Oxycodone Hcl Immed Release 5 Mg Tablet) 10 mg PO Q4H PRN PRN Reason: Pain, Moderate(Pain Scale 4-6) Oxycodone HCl (Oxycodone Hcl Er 10 Mg Tab.Er.12h) 10 mg PO BID RIKY Sodium Chloride (0.9 % Sodium Chloride Flush 3 Ml Syringe) 3 ml IVFLUSH QSHIFT RIKY Last Admin: 10/10/24 16:10 Dose: 3 ml Home Medications ?Medication ?Instructions ?Recorded ?Confirmed ?Last Taken ?Type methadone 10 mg/mL oral concentrate 185 mg PO DAILY 08/23/23 09/03/24 10/10/24 History sertraline 100 mg tablet 100 mg PO DAILY 09/12/24 10/10/24 10/09/24 History dulaglutide 1.5 mg/0.5 mL 1.5 mg subcut 10/10/24 10/10/24 09/22/24 History subcutaneous pen injector (Trulicity) ergocalciferol (vitamin D2) 1,250 1,250 mcg PO SA 10/10/24 10/10/24 10/06/24 History mcg (50,000 unit) capsule trazodone 50 mg tablet 50 mg PO BEDTIME 10/10/24 10/10/24 Unknown History Physical Exam Vital Signs and Narrative: Vital Signs: Last Vital Signs Temp 98.1 F 10/10/24 15:26 Pulse 71 10/10/24 15:26 Resp 12 10/10/24 15:26 BP 144/72 H 10/10/24 15:26 Pulse Ox 92 10/10/24 15:26 O2 Del Method Nasal Cannula 10/10/24 15:26 O2 Flow Rate 1 10/10/24 15:26 BMI result Body Mass Index 36.7 Const: General: cooperative, comfortable, no acute distress, alert and awake Nutritional Appearance: average body habitus Orientation/consciousness: patient oriented x3 Resp: Effort & Inspection: normal respiratory effort, able to speak in complete sentences, no respiratory distress and no use of accessory muscles Auscultation: clear to auscultation bilaterally Cardio: Rate: regular rate GI: Inspection: No distended Palpation (GI): Soft to palpation Neuro: General: patient oriented x3, moves all extremities and CN's II-XI intact bilaterally Extrem: Other: left knee wrapped in RAMONA wrap Results Labs Labs: Laboratory Results - last 24 hr 10/10/24 10/10/24 09:21 10:24 POC Glucose 106 Urine Opiates Screen Not Detected Ur Buprenorphine Scrn Not Detected Ur Oxycodone Screen Not Detected Urine Methadone Screen Positive H Urine Fentanyl Screen Not Detected Ur Barbiturates Screen Not Detected Ur Phencyclidine Scrn Not Detected Ur Amphetamines Screen Not Detected U Benzodiazepines Scrn Not Detected Urine Cocaine Screen Not Detected U Marijuana (THC) Screen Not Detected Assessment and Plan (1) Type 2 diabetes mellitus: Qualifiers: Diabetes mellitus complication status: with hyperglycemia Diabetes mellitus care home insulin use: without care home use Qualified Code(s): E11.65 - Type 2 diabetes mellitus with hyperglycemia Status: Acute (2) Hypertension: Qualifiers: Hypertension type: primary hypertension Qualified Code(s): I10 - Essential (primary) hypertension Status: Acute Plan This is a 58-year-old male with history of diabetes, hypertension, depression, anxiety who presented for elective left total knee arthroplasty s/p left TKA management as per orthopedic service DM SSI, POCs, ADA diet metformin ordered by primary team Hold [facility] while inpatient Urinary retention No previous history, likely due to anesthesia Bladder scan Q shift and straight cath for >350 HTN continue lisinopril and would resume clonidine Hold spironolactone follow BP closely Mood continue sertraline polysubstance use continue baseline dose of methadone take home narcan on d/c tobacco dependence smoking cessation advised NRT dvt ppx - as per orthopedic team Thank you for allowing us to participate in the care of this patient. we will follow along with you
--- NOTE | 2024-10-10 16:36 | PHA.MEDREC ---
Addendum entered by Yousuf Schmidt PharmD 10/10/24 16:43: reviewed, last dose 09/22/24 for Trulicity not 10/23/24 Original Note: Pharmacy Consult ? Medication Reconciliation Pharmacy has reviewed the medication reconciliation done by nursing. Spoke to patient to confirm med list. Patient confirmed Trulicity 1.5 mg every Tuesday, last does 10/23/24, Vitamin D3 50,000 mcg every Tuesday, last dose 10/06/24, Melatonin 20 mg (2x 10 mg)at bedtime, Trazadone 50 mg, and Methadone 185 mg daily from [facility] in [place]. Patient has few take home doses , last dose to today.
[2024-10-10] MEDS: oxyCODONE HCl ER 10 MG TAB.ER.12H PO ×2 (16:38→20:21)
[2024-10-10 17:08] LABS: Glucose, Whole Blood 206 mg/dL (60-115)
--- NOTE | 2024-10-10 17:20 | HE.PHANOTE ---
Received verification from nursing. Pt gets methadone at [facility] in [place]. They get 125mg in the morning and 60mg in the evening and was given take home bottles on 10/04/24 to last until 10/17/24.
[2024-10-10] MEDS: oxyCODONE HCl Immed Release 5 MG TABLET 10 MG PO (19:32)
[2024-10-10] MEDS: Nicotine Polacrilex Lozenge 4 MG LOZENGE BUCCAL (19:38)
--- NOTE | 2024-10-10 20:00 | PC.NURSE ---
1999: S/p LTKA, appears to still be in a lot of pain 10/10, was given 0.5 mg of Dilaudid at 1744, still at 10/10 pain, once order of Dilaudid to 1 mg requested, to help with breakthrough pain. Dr. Bergeron gave this RN verbal order to place. 2199: Dr. Anderson made aware of POC at 371, per Dr. Anderson only give additional 10 units of Sliding scale, d/t patient being on metformin.
[2024-10-10 21:08] LABS: Glucose, Whole Blood 371 mg/dL (60-115)
[2024-10-11] MEDS: oxyCODONE HCl Immed Release 5 MG TABLET 10 MG PO ×2 (00:57→05:40)
[2024-10-11] MEDS: Lactated Ringers 1,000 ML 100 ML IVCONT (02:33)
[2024-10-11 03:40] VITALS: BP 137/69; PULSE 82; RESP 18; TEMP 36.9; O2SAT 93
[2024-10-11 06:17] LABS: MANUAL DIFF FLAG NO
[2024-10-11 06:38] LABS: Anion Gap 16 (12-20); Blood Urea Nitrogen 22 mg/dL (9-16); Calcium 8.3 mg/dL (8.4-10.2); Carbon Dioxide 20 mmol/L (22-29); Chloride 106 mmol/L (96-108); Creatinine Clr Calc Pharmacy 83.4; Estimated Glomerular Filt Rate 57; Potassium 4.5 mmol/L (3.3-5.1); Sodium 137 mmol/L (135-145)
[2024-10-11 06:48] LABS: Hematocrit 37.3 % (42.0-52.0); Hemoglobin 12.1 g/dl (14.0-18.0); Imm Gran Abs Auto 0.19 X10*3/uL (0.00-0.03); Imm Gran Pct Auto 0.9 % (0.0-0.4); Lymphocytes Absolute Auto 1.2 X10*3/uL (1.2-4.9); Mean Corpuscular HGB Conc 32.4 g/dl (31.0-36.0); Mean Corpuscular Hemoglobin 26.8 pg (27.0-33.0); Mean Corpuscular Volume 82.5 fL (80.0-98.0); NRBC Abs Auto 0.000 X10*3/uL (0.0-0.012); NRBC Pct Auto 0.0 /100WBC (0.0-0.2); Platelet Count 215 X10*3/uL (160-400); Red Blood Count 4.52 X10*6/uL (4.60-5.80); White Blood Count 20.0 X10*3/uL (4.8-10.8)
[2024-10-11 07:11] VITALS: BP 145/73; PULSE 77; RESP 15; TEMP 35.9; O2SAT 96
[2024-10-11 07:31] LABS: Glucose, Whole Blood 220 mg/dL (60-115)
[2024-10-11] MEDS: oxyCODONE HCl ER 10 MG TAB.ER.12H PO (07:56)
[2024-10-11] MEDS: methADONE HCl 20 MG/2 ML ORAL.CONC 125 MG PO (07:57)
--- NOTE | 2024-10-11 08:26 | P.DS_ITS ---
DS: Providers Provider Date of Service: 10/11/24 Date of admission: 10/10/24 08:58 Date of discharge: 10/11/24 Primary care physician: Sara Albright MD Consults: 10/10/24 15:27 Consult to Case Management Routine Comment: Home with services Consult to Hospitalist Routine Comment: Consulting Provider: [facility] Hospitalists Reason For Exam: Routine medical management DS: Diagnosis Discharge Diagnosis (1) Status post total left knee replacement: Status: Acute DS: Summary Hospital Course Hospital Course: The patient underwent a successful left knee total knee arthroplasty on 10/10/24, was transferred to PACU and then to the floor to recover. During their stay, their vitals were stable, afebrile at 96.7 . Labs were unremarkable, H/H 12.1/37.3. POD 1 he was started on [id number] tabs po bid for DVT ppx, they also received Physical Therapy services twice a day. Physical therapy should include gait training, ROM to tolerance and quad strength. He is WBAT. Prior to discharge, his dressing was clean dry and intact, new Aquacel dressing applied. The Aquacel dressing should remain intact and dry at all times. Any concerns with the dressing, please contact orthopedic office. No showering. The plan is to be discharged home with vna Time Attestation Discharge Coordination Time (in mins): 30 Quality: Safe Use of Opioids Does Pt have an Active Cancer Diagnosis on the Problem List?: No Quality: Stroke Does the patient have a stroke diagnosis?: No Physical Exam Vital Signs: Vital Signs: Last Vital Signs Temp 96.7 F L 10/11/24 07:11 Pulse 77 10/11/24 07:11 Resp 15 10/11/24 07:11 BP 145/73 H 10/11/24 07:11 Pulse Ox 96 10/11/24 07:11 O2 Del Method Room Air 10/11/24 07:11 O2 Flow Rate 1 10/10/24 15:26 BMI result Body Mass Index 36.7 DS: Data Data Completed and Pending Pending studies at discharge: Pending at discharge 10/10/24 13:46 Surgical [PTH] Routine Labs on day of discharge: Laboratory Results - last 24 hr 10/10/24 10/10/24 10/10/24 09:21 10:24 17:01 WBC RBC Hgb Hct MCV MCH MCHC RDW Plt Count MPV Immature Gran % (Auto) Neut % (Auto) Lymph % (Auto) [place] % (Auto) Eos % (Auto) Baso % (Auto) Lymph # (Auto) [place] # (Auto) Eos # (Auto) Baso # (Auto) Abs Immat Gran (auto) Absolute Neuts (auto) Absolute Nucleated RBC Nucleated RBC % (auto) Sodium Potassium Chloride Carbon Dioxide Anion Gap BUN Creatinine Estim Creat Clear Calc Estimated GFR POC Glucose 106 206 H Fasting Glucose Calcium Urine Opiates Screen Not Detected Ur Buprenorphine Scrn Not Detected Ur Oxycodone Screen Not Detected Urine Methadone Screen Positive H Urine Fentanyl Screen Not Detected Ur Barbiturates Screen Not Detected Ur Phencyclidine Scrn Not Detected Ur Amphetamines Screen Not Detected U Benzodiazepines Scrn Not Detected Urine Cocaine Screen Not Detected U Marijuana (THC) Screen Not Detected 10/10/24 10/11/24 10/11/24 20:56 05:48 07:16 WBC 20.0 H RBC 4.52 L Hgb 12.1 L Hct 37.3 L MCV 82.5 MCH 26.8 L MCHC 32.4 RDW 13.0 Plt Count 215 MPV 10.3 Immature Gran % (Auto) 0.9 H Neut % (Auto) 87.9 H Lymph % (Auto) 5.7 L [place] % (Auto) 5.4 Eos % (Auto) 0.0 Baso % (Auto) 0.1 Lymph # (Auto) 1.2 [place] # (Auto) 1.1 Eos # (Auto) 0.0 Baso # (Auto) 0.0 Abs Immat Gran (auto) 0.19 H Absolute Neuts (auto) 17.6 H Absolute Nucleated RBC 0.000 Nucleated RBC % (auto) 0.0 Sodium 137 Potassium 4.5 Chloride 106 Carbon Dioxide 20 L Anion Gap 16 BUN 22 H Creatinine 1.30 Estim Creat Clear Calc 83.4 Estimated GFR 57 POC Glucose 371 H* 220 H Fasting Glucose 255 H Calcium 8.3 L D Urine Opiates Screen Ur Buprenorphine Scrn Ur Oxycodone Screen Urine Methadone Screen Urine Fentanyl Screen Ur Barbiturates Screen Ur Phencyclidine Scrn Ur Amphetamines Screen U Benzodiazepines Scrn Urine Cocaine Screen U Marijuana (THC) Screen Discharge Plan Discharge Anticipated Discharge Date/Time: 10/11/24 08:22 Patient Disposition: Home Health Service Discharge Diagnosis: sp LT TKA Referrals: Meghna Love PA-C [Physician Hvac Installation Technician, Orthopedics] - 1 Week Referral Note: 10/25/24 13:00 [facility] Orthopedic Surgeons Meghna Love PA-C Discharge Medications: New docusate sodium 100 mg Capsule 100 mg PO BID 14 Days Qty: 28 0RF oxycodone 10 mg tablet 10 mg PO Q4H PRN (Reason: Pain, Moderate(Pain Scale 4-6)) 7 Days Qty: 42 0RF Rx Instructions: Partial Fill upon patient request. celecoxib 200 mg Capsule 200 mg PO BID 30 Days Qty: 60 0RF acetaminophen 325 mg Tablet 650 mg PO Q6H PRN (Reason: Pain, Mild 1-3,Fever,Headache) 30 Days Qty: 240 0RF aspirin 325 mg Tablet 325 mg PO BID 42 Days Qty: 84 0RF Continued (DME) blood pressure test kit-large [Advocate Blood Pressure Monitr] Kit See Rx Instructions .Route Qty: 1 0RF Rx Instructions: As directed lisinopril 40 mg tablet 40 mg PO DAILY 90 Days Qty: 90 1RF (DME) lancets [FreeStyle Lancets] 28 gauge misc See Rx Instructions .Route Qty: 100 6RF Rx Instructions: Use 1 lancet once a day (DME) FreeStyle Lite Strips Strip See Rx Instructions .Route Qty: 100 6RF Rx Instructions: Use 1 strip once a day (DME) blood-glucose meter [FreeStyle Lite Meter] Kit See Rx Instructions .Route Qty: 1 0RF Rx Instructions: As directed metformin 1,000 mg tablet 1,000 mg PO BID 90 Days Qty: 180 3RF (DME) walker Misc See Rx Instructions .MEDSUPPLY Qty: 1 0RF Rx Instructions: Folding front wheeled walker trazodone 50 mg tablet 50 mg PO BEDTIME ergocalciferol (vitamin D2) 1,250 mcg (50,000 unit) capsule 1,250 mcg PO SA Trulicity 1.5 mg/0.5 mL pen injector 1.5 mg subcut SA methadone [Methadone Intensol] 10 mg/mL Concentrate 60 mg PO BEDTIME methadone 10 mg/mL concentrate 125 mg PO DAILY clonidine HCl 0.2 mg tablet 0.2 mg PO TID 30 Days Qty: 90 2RF nicotine (polacrilex) 4 mg lozenge 4 mg buccal Q8H PRN (Reason: nicotine cravings) 30 Days Qty: 24 0RF melatonin 10 mg capsule 20 mg PO BEDTIME 90 Days Qty: 180 1RF sertraline 100 mg tablet 100 mg PO DAILY spironolactone 25 mg tablet 25 mg PO DAILY Qty: 30 3RF Discontinued ibuprofen 800 mg tablet 800 mg PO Q8H PRN (Reason: pain) Qty: 30 0RF Discharge Orders: Discharge Order (Routine); Ordered 10/11/24 Ordered By: Gerardo Jj Diet: Regular diet Activity on Discharge: Use cane or walker Stand Alone Forms: Patient Portal Discharge page Print Language: Azeri Activity Restrictions/Additional Instructions: Physical Therapy for Total knee arthroplasty: WBAT, gait training, ROM 0-12, quad strength * Limit stair climbing * No showering, no tub bath-keep dressing clean, dry and intact * No driving x6 weeks * Continue Aspirin twice a day x 6 weeks * Follow up with [facility] Orthopedics in 2 weeks: Care Plan Goals: Restore function of joint Health Concerns: none Plan of Treatment: Physical Therapy Pain management DVT prophylaxis Assessment: Physical Therapy for Total knee arthroplasty: WBAT, gait training, ROM 0-12, quad strength * Limit stair climbing * No showering, no tub bath-keep dressing clean, dry and intact * No driving x6 weeks * Continue Aspirin twice a day x 6 weeks * Follow up with [facility] Orthopedics in 2 weeks:
--- NOTE | 2024-10-11 08:32 | W.MHC.F2F ---
Service Date Service Date: 10/11/24 Encounter Date of encounter: 10/11/24 Reasons for Services Signs and symptoms assessed: Weakness, poor balance, poor gait mechanics Homebound: Leaving the home is medically contraindicated at this time without the asist of a device and/or another person due th the listed conditions above and below. Reason homebound: unsteady gait / fall risk, poor balance / fall risk, shortness of breath at rest and unable to drive Homebound supporting statement: Pt. is considered home bound due to recent surgery. Unable to drive, poor balance, poor gait mechanics. Certification: Based on the above findings, I certify that this patient is confined to the home and needs intermittent senior care care, physical therapy and/or speech therapy, or continues to need occupational therapy. The patient is under my care, and I have initiated the establishment of the plan of care. The patient will be followed by a physician who will periodically review the plan of care. Time Spent With Patient Time: Total time managing care of this patient today ____ minutes.
--- NOTE | 2024-10-11 08:39 | HO.POSTANES ---
Post Anesthesia Evaluation Post Anesthesia Evaluation Date of Service: 10/11/24 Vital Signs: Vital Signs Temp Pulse Resp BP Pulse Ox O2 Del Method 10/11/24 07:11 96.7 F L 77 15 145/73 H 96 Room Air 10/11/24 03:40 98.5 F 82 18 137/69 93 Room Air 10/10/24 23:35 98.6 F 93 16 137/75 92 Room Air Anesthesia: Spinal Mental Status: Awake Pain Control: Satisfactory Nausea/Vomiting: None Hydration: Adequate Anesthesia-Related Issues: No Anes. Related Issues
--- NOTE | 2024-10-11 09:09 | MHC.CM.PN ---
PT REPORTS HE LIVES WITH FAMILY AND IS INDEPENDENT WITH CARE HE HAD NO DME AND NO SERVICES CUSTOMER ENGAGEMENT MANAGER COPY OF HCP REQUESTED PCP: CHIDI DOZIER PT WILL DC HOME TODAY WITH [facility] TO TRANSPORT
[2024-10-11 09:44] LABS: MRSA Nasal PCR NEGATIVE (Negative); SA Nasal PCR NEGATIVE (Negative)
[2024-10-11 10:55] VITALS: BP 142/81; PULSE 69; RESP 16; TEMP 36.9; O2SAT 95
--- NOTE | 2024-12-03 08:02 | P.OP_ITS ---
Operative Note Operative Note Date of Service: 10/10/24 Narrative: Date of Service: 10/10/24 Pre-op diagnosis: Left knee OA Post-op diagnosis: same Procedure: Left TKA Implants: [place] triathlon cemented posterior stabilized 06/02/12ps/35a Surgeon: Martin Guillory MD Anesthesia: regional Was an Cook Cashier Food Prep used for this Procedure?: Yes Cook Cashier Food Prep: Meghna Love Estimated blood loss (mL): 100 Tourniquet time (min): 70 IV fluids (mL): 1,000 Pathology: other Condition: stable Disposition: PACU Procedure in detail: The patient was brought to the operating room and prepped and draped in standard sterile fashion. A time-out was called to identify proper site proper procedure proper surgeon and IV antibiotics were administered. 1 g of IV tranexamic acid was administered. There was a 5deg flexion contracture. I began by making a midline incision to the retinaculum and performed a medial parapatellar arthrotomy. The patella was translated laterally and the knee was flexed up. There was medial compartment eburnation. I performed a small medial peel and resected the infrapatellar fat pad. Inessa's line was then used to drill my intramedullary femoral guide and my distal femur cut of 12 mm was made in 5 degrees of valgus while protecting the soft tissues. I then measured a # 4 femur and placed my cutting guide and made my anterior posterior and chamfer cuts protecting the soft tissues at all times. I then made my box but removing the PCL. Once I was satisfied with my cuts I turned my attention to the tibia. I removed the meniscus medially and laterally and , using an external cutting guide, in line with the tibial crest and the third ray, I made my distal tibial cut in 0 deg slope of while protecting the posterior soft tissues at all times. An extension block was used to confirm appropriate amount of bony resection. I then sized a #5 tibia and once I was satisfied that there was complete tibial coverage I placed my trial and with the trial femur in place took the knee through range of motion. I was satisfied with the extension, flexion and kimberley nce at 0, 30 and 90 degrees. I then turned my attention to the patella where I removed 1 cm from the undersurface of the patella and then trialed a 35a patellar button. Again the knee was taken through range of motion I was satisfied with the tracking. I then returned to the tibia and prepared the tibia. A femoral bone plug was placed and the knee was irrigated copiously. I mixed 2 bags of Palacos bone cement on the back table using 3rd gen cementation technique. I then cemented the patella, tibia and femur in standard fashion while applying axial compression and with a clamp on the patella. Once the cement was dry I removed all excess cement. I trialed different inserts until I selected a #13ps insert. The final insert was placed and a the knee was irrigated copiously and local TXA was administered.A Werewolf cautery wand was used to maintain hemostasis over the meniscal beds, the gutters and peripatellar soft tissues. The knee was then closed with a running Quill suture, a 3 0 Vicryl and margarito on the skin. Patient was then placed in sterile dressing and brought to recovery room in stable condition there were no known complications.
== END 2024-10-11 11:12 | disposition home or self-care (01) ==
LOC: HO.SSS 08:07 → HO.S3 10-11 08:22
PROVIDERS: Nurse Practitioner; Orthopaedic Surgery; PCP Internal Medicine; Visit Provider Physician Assistant
PROC: (CPT 27447; principal; 2024-10-10 12:40)
DX: M17.12 Unilateral primary osteoarthritis, left knee (principal); M25.562 Pain in left knee; I10 Essential (primary) hypertension; E11.65 Type 2 diabetes mellitus with hyperglycemia; R80.9 Proteinuria, unspecified; M79.89 Other specified soft tissue disorders; E87.5 Hyperkalemia; E55.9 Vitamin D deficiency, unspecified; F33.1 Major depressive disorder, recurrent, moderate; Z20.2 Contact with and (suspected) exposure to infections with a predominantly sexual mode of transmission; Z79.891 Long term (current) use of opiate analgesic; Z79.84 Long term (current) use of oral hypoglycemic drugs; Z79.85 Long-term (current) use of injectable non-insulin antidiabetic drugs; Z79.899 Other long term (current) drug therapy; F17.210 Nicotine dependence, cigarettes, uncomplicated; F19.11 Other psychoactive substance abuse, in remission; Z98.890 Other specified postprocedural states; Z56.0 Unemployment, unspecified
CPT/HCPCS: 27447; 36415; 80048; 80307; 82947; 85025; 86850; 86870; 86880; 86900; 86901; 86920; 86921; 87640; 87641; 88305; 88311; 93005; 97161; C1713; C1776; J0131; J0665; J1100; J1171; J2003; J2004; J2250; J2405; J2704; J3010; J3373; J3374; J7120

== ENCOUNTER → 2024-10-10 08:05 | Outpatient (BNV) | payer OTHER, SELFPAY | PROVIDERS: PCP Internal Medicine; Visit Provider Orthopaedic Surgery | DX: Z47.1 Aftercare following joint replacement surgery (principal); Z96.652 Presence of left artificial knee joint | CPT/HCPCS: 99024; G0180 ==

== ENCOUNTER → 2024-10-10 08:58 | Outpatient (BNV) | payer OTHER, SELFPAY | PROVIDERS: Admitting Provider Physician Assistant; PCP Internal Medicine; Visit Provider Physician Assistant Medical | DX: E11.65 Type 2 diabetes mellitus with hyperglycemia (principal); I10 Essential (primary) hypertension | CPT/HCPCS: 99223 ==

== ENCOUNTER 2024-10-25 12:34 | Outpatient (AMB) | payer OTHER, SELFPAY ==
--- NOTE | 2024-10-25 13:00 | MHC.OFFVIS ---
Vital Signs 10/25/24 13:01 Height 5 ft 11 in Weight 263 lb BMI 36.7 Intake Visit Reasons: 2WKPO: L TKA w/NE 10/10/24 Intake Note: Liborio is a 58 year old male who presents today for a post operative appointment for his left total knee arthroplasty 10/10/24 NE. Patient reports his recovery is going well. He mentions having pain on the lateral aspect of the knee and feels relief when he raises his leg. He states that the pain becomes so strong that it has woken him up from his sleep 2-3 times in the night. Allergies No Known Allergies (No Known Allergies*) Allergy (Verified 10/25/24 13:07) HPI HPI 2WKPO: L TKA w/NE 10/10/24: Details: Mr. Dyson is a 58-year-old male who presents to the office today status post left total knee arthroplasty performed by Dr. Guillory on 10/10/2024. Patient is using a cane to assist with ambulation. He is overall doing very well. He is finishing with home VNA services and transitioning to outpatient physical therapy in which he already has an appointment for. He reports that he continues to have some pain but is managing and understands with the methadone use it may be difficult for adequate pain control. Patient has stopped using all narcotic medications. No additional complaints. [facility] Medical History COVID-19 Arthritis HTN (hypertension) Diabetes Mild major depression Exposure to STD Polysubstance abuse Surgical History History of tonsillectomy History of umbilical hernia repair Hx of arthroscopy of right knee History of arthroscopy of left knee Family History Mother Diabetes mellitus Hypertension Father No problems noted. Other Substance use disorder Social History Housing: Apartment Are you a primary healthcare administration intern to a significant other at home: No Do you presently have visiting nurse or other home services: No Alcohol intake: never Patient Tobacco Use Status: Current everyday Tobacco user Tobacco use type: Cigarette Cigarettes Per Day: 5 Years Smoked: 20 e-Cigarette/Vaping Use: Never Used Second Hand Smoke Exposure: No service: No Current occupational status: unemployed and disabled Cognitive needs: No Hearing needs: No Vision needs: No Review of Systems Const All systems reviewed & are unremarkable except as noted in HPI and below Physical Exam Vital Signs: BMI result Body Mass Index 36.7 Const General: cooperative, healthy appearing and no acute distress Resp Effort & Inspection: normal respiratory effort and able to speak in complete sentences Extrem Other: Left knee incision site clean dry and intact. Margarito intact. No surrounding erythema or drainage. No signs of infection. Range of motion 0-90 degrees. NVI Psych Appearance: grossly normal Mental Status: mental status grossly normal Attitude: cooperative Assessment & Plan Assessment & Plan (1) Status post total left knee replacement: Code(s): Z96.652 - Presence of left artificial knee joint Category: Surgical Plan Mr. Dyson is a 58-year-old male who presents to the office today status post left total knee arthroplasty performed by Dr. Guillory on 10/10/2024. Patient is using a cane to assist with ambulation. He is overall doing very well. He is finishing with home VNA services and transitioning to outpatient physical therapy in which he already has an appointment for. He reports that he continues to have some pain but is managing and understands with the methadone use it may be difficult for adequate pain control. Patient has stopped using all narcotic medications. No additional complaints. While in the office today, margarito were removed and Steri-Strips were applied. Patient will begin outpatient physical therapy at this time. He will continue DVT prophylaxis with aspirin for a total of 6 weeks postoperatively. He will follow up with Dr. Guillory in 4 weeks, sooner if needed. Coding Level of Care Code Global (84926) Diagnoses Status post total left knee replacement Z96.652
[2024-10-25 13:01] VITALS: BMI 36.7
--- OUTSIDE RECORDS SUMMARY | 2024-10-25 13:16 | XMS_ITS | Patient Health Record ---
Author Organization [facility] Address [address], [place] [id number] Care Team Providers Care Flower Cheniller Name Role Phone [facility] Primary Care Provider Mariana Macias [facility] [phone] Reason For Referral No Information Encounters Encounter Location Date Provider Diagnosis [facility] [address] [place] [address] [id number] 09/04/2024 Mariana Macias [facility] [address] [place] [address] [id number] 09/13/2024 Mariana Macias [facility] [address] [place] [address] [id number] 09/13/2024 Mariana Macias [facility] [address] [place] [address] [id number] 08/22/2024 Mariana Macias Plan Of Treatment No Information Insurance Providers Payer Name Payer Address Payer Phone Subscriber Number Group Number Insured Name Patient Relationship to Insured Coverage Start Date Coverage End Date [facility] [employer] [address] [place] [id number] Liborio Dyson Self - patient is the insured 5 5
== END 2024-10-25 13:37 | disposition home or self-care (01) ==
LOC: HO.HOS 12:35
PROVIDERS: PCP Internal Medicine; Visit Provider Physician Assistant
DX: Z47.1 Aftercare following joint replacement surgery (principal); Z96.652 Presence of left artificial knee joint
CPT/HCPCS: 99024

== ENCOUNTER → 2024-10-25 12:34 | Outpatient (BNVA) | payer OTHER, SELFPAY | PROVIDERS: PCP Internal Medicine; Visit Provider Physician Assistant | DX: Z98.890 Other specified postprocedural states (principal); Z96.652 Presence of left artificial knee joint | CPT/HCPCS: 99212 ==

== ENCOUNTER 2024-11-19 10:27 | Outpatient (REF) | payer OTHER, SELFPAY ==
--- OUTSIDE RECORDS SUMMARY | 2024-08-22 06:00 | XMS_ITS ---
Author Organization [facility] Address [address] [place] [id number] Care Team Providers Care Dietary Worker Name Role Phone [facility] Primary Care Provider [phone] Mariana Macias [facility] [phone] Encounters Encounter Location Date Provider Diagnosis [facility] [address] [place] [phone] 08/22/2024 Mariana Macias Plan Of Treatment No Information Progress Notes * Koki DYSONOB:1965 ( 59 yo M)Acc No.[id number]:08/22/2024 Case Management New Patient: Nilsa FRANCIS Liborio Provider: Juan Macias :1965 A ge:58 Y S ex:Male Date:08/22/2024 Address:[address], [place] Pcp:[facility] Subjective: * Chief Complaints: * * HPI: S ocial Service: Referral Source w alk-in. 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 Objective: Assessment: Plan: * Treatment: * Images: Billing Information: * Visit Code: * Procedure Codes: Care Plan Details* * Electronic signature of Ozzie Macias on 11/19/2024 at 12:43 PM EDT Sign off status: Pending * Provider: Juan Macias Date: 08/22/2024 Generated for Printi ng/Faxing/eTransmitting on: 11/19/2024 12:43 PM EDT History and Physical Notes * HPI (History of Present Illness) Category Sub-Category Detail Notes Category Not es Social Service Referral Source walk-in Interpretation for medical provider hous ing, Mail merchandise pickup/receiving associate
--- NOTE | ~2024-11-19 | XR_ITS ---
CLINICAL HISTORY: M25.562 - Pain in left knee Standing AP view of both knees, 2 additional views of the left knee. Comparison: None Findings: The left knee arthroplasties intact. No periprosthetic fracture or lucency. Severe medial compartment joint space narrowing involving the right knee. IMPRESSION: No acute findings. Intact left knee arthroplasty. Severe medial compartment joint space narrowing on the right. This document has been electronically signed by: Elvin Morris MD on 11/20/2024 11:30:03
--- OUTSIDE RECORDS SUMMARY | 2024-11-19 12:44 | XMS_ITS | Patient Health Record ---
Author Organization [facility] Address [address] [place] [address] Care Team Providers Care Air Twist Operator Name Role Phone [facility] Primary Care Provider [phone] Mariana Macias [facility] Reason For Referral No Information Encounters Encounter Location Date Provider Diagnosis [facility] [address] [place] [address] [id number] 09/04/2024 Mariana Macias [facility] [address] [place] [address] [id number] 09/13/2024 Mariana Macias [facility] [address] [place] [address] [phone] 09/13/2024 Mariana Macias [facility] [address] [place] [address] [id number] 08/22/2024 Mariana Macias Plan Of Treatment No Information Insurance Providers Payer Name Payer Address Payer Phone Subscriber Number Group Number Insured Name Patient Relationship to Insured Coverage Start Date Coverage End Date [facility] [employer] [address] [place] [phone] Liborio Dyson Self - patient is the insured 5 5
== END 2024-11-19 10:28 | disposition home or self-care (01) ==
LOC: HO.HOSX 10:27
PROVIDERS: Visit Provider Orthopaedic Surgery
DX: M25.562 Pain in left knee (principal); Z96.652 Presence of left artificial knee joint
CPT/HCPCS: 73562; 99212

== ENCOUNTER 2024-11-19 11:56 | Outpatient (AMB) | payer OTHER, SELFPAY ==
--- NOTE | 2024-11-19 12:03 | MHC.OFFVIS ---
Vital Signs 11/19/24 12:05 Height 5 ft 11 in Weight 263 lb BMI 36.7 Intake Visit Reasons: 6WKPO: L TKA w/NE 10/10/24 Allergies No Known Allergies (No Known Allergies*) Allergy (Verified 11/19/24 12:05) HPI HPI 6WKPO: L TKA w/NE 10/10/24: Details: Liborio is a 58 year old male who presents today for a post operative appointment about 5 weeks s/p left total knee arthroplasty 10/10/24 NE. Patient states he is doing very well, he has no pain just some soreness and tighness especially after therapy. He has had some difficulty getting into and out of physical therapy for some reason it so he had to put a hole and he is restarting next week. [facility] Medical History COVID-19 Arthritis HTN (hypertension) Diabetes Mild major depression Exposure to STD Polysubstance abuse Surgical History History of tonsillectomy History of umbilical hernia repair Hx of arthroscopy of right knee History of arthroscopy of left knee Family History Mother Diabetes mellitus Hypertension Father No problems noted. Other Substance use disorder Social History Housing: Apartment Are you a primary healthcare social worker to a significant other at home: No Do you presently have visiting nurse or other home services: No Alcohol intake: never Patient Tobacco Use Status: Current everyday Tobacco user Tobacco use type: Cigarette Cigarettes Per Day: 5 Years Smoked: 20 e-Cigarette/Vaping Use: Never Used Second Hand Smoke Exposure: No service: No Current occupational status: unemployed and disabled Cognitive needs: No Hearing needs: No Vision needs: No Physical Exam Vital Signs: BMI result Body Mass Index 36.7 Extrem Other: inc c/d/i no efusion 0-105 deg passive but 5-7 deg ext lag active. quad intact. walking comfortably Results Reviewed Results Reviewed: I personally reviewed relevant radiographs. Left total knee arthroplasty in expected post operative position with no hardware complications or evidence of loosening Assessment & Plan Assessment & Plan (1) Status post total left knee replacement: Code(s): Z96.652 - Presence of left artificial knee joint Category: Surgical Plan: 5 weeks status post left knee replacement. Overall he is doing well. Continue strengthening and range of motion. Follow up 6 weeks. May discontinue aspirin. Orders: Orders XR knee LT 3V Today M25.562 - Pain in left knee Coding Level of Care Code Global (72238) Diagnoses Status post total left knee replacement Z96.652
[2024-11-19 12:05] VITALS: BMI 36.7
== END 2024-11-19 12:44 | disposition home or self-care (01) ==
LOC: HO.HOS 11:56
PROVIDERS: PCP Internal Medicine; Visit Provider Orthopaedic Surgery
DX: Z47.1 Aftercare following joint replacement surgery (principal); Z96.652 Presence of left artificial knee joint
CPT/HCPCS: 99024

== ENCOUNTER → 2024-11-19 11:59 | Outpatient (BNV) | payer OTHER, SELFPAY | PROVIDERS: Visit Provider Radiology Vascular & Interventional Radiology | DX: M25.862 Other specified joint disorders, left knee (principal) | CPT/HCPCS: 73562 ==

== ENCOUNTER 2024-12-31 14:10 | Outpatient (AMB) | payer OTHER, SELFPAY ==
--- NOTE | 2024-12-31 14:18 | A.OFFPC_ITS ---
Vital Signs 12/31/24 14:19 Height 5 ft 11 in Weight 275 lb 2 oz BMI 38.4 BP 138/80 Blood Pressure Location Lt brachial Position Sitting Pulse 75 Pulse Source Pulse Oximeter Temp 97.3 F Temp Source Temporal Artery Scan Pulse Oximetry (%) 95 Oxygen Delivery Method Room Air Intake Visit Reasons: dm Intake Note: Patient is here to follow up on DM. Fish Boning Machine Feeder Required: No Cash Surrender Calculator: Not Required per policy Accompanied by: Self / Same As Patient Allergies No Known Allergies (No Known Allergies*) Allergy (Verified 12/31/24 14:30) Medication List - Last Reconciled 12/31/24 by Sara Albright MD blood pressure test kit-large ([facility] Blood Pressure Monitor kit) As directed blood sugar diagnostic (FreeStyle Lite Strips) Use 1 strip once a day blood-glucose meter (FreeStyle Lite Meter kit) As directed clonidine HCl 0.2 mg PO TID 30 days docusate sodium 100 mg PO BID 14 days dulaglutide (Trulicity) 1.5 mg subcut SA ergocalciferol (vitamin D2) 1,250 mcg PO SA ibuprofen 800 mg PO Q8H PRN 30 days lancets (FreeStyle Lancets) Use 1 lancet once a day lisinopril 40 mg PO DAILY 90 days melatonin 20 mg (2 x 10 mg) PO BEDTIME 90 days metformin 1,000 mg PO BID 90 days methadone (Methadone Intensol) 60 mg PO BEDTIME methadone 125 mg PO DAILY nicotine (polacrilex) 4 mg buccal Q8H PRN 30 days sertraline 100 mg PO DAILY spironolactone 25 mg PO DAILY trazodone 50 mg PO BEDTIME walker Folding front wheeled walker Tobacco use date assessed: 12/31/24 Dental Screening Dental Screen Date: 07/30/24 HPI HPI Comments History of Present Illness Details The patient is a 59-year-old male presenting for management of his chronic conditions. His recent A1c was 7.5, which is above the goal of 7.0 or less. His current diabetes medications include metformin 1000 mg twice daily and Trulicity 1.5 mg weekly. The patient does not currently see an precision dancer. I will change Trulicity to Ozempic if insurance approves. A1c goal is equal or less than 7%. His blood pressure is well-controlled on a regimen of clonidine 0.2 mg three times a day, lisinopril, and spironolactone. His other medications include sertraline for depression, trazodone for insomnia, methadone, and docusate as needed for constipation. He also takes vitamin D, for which he needs a refill. The patient reports new symptoms of jumpiness and paresthesias described as needles and pins in his legs, which occur at nighttime. He was previously treated for neuropathy with gabapentin, taken once at bedtime, which he found to be effective. The patient is two and a half months status post a left total knee arthroplasty. He continues to attend physical therapy and notes his scar is healing well, though he still experiences some tightness in the knee. [facility] Medical History (Updated 12/31/24 @ 14:46 by Sara Albright MD) Type 2 diabetes mellitus Hypertension COVID-19 Arthritis HTN (hypertension) Diabetes Mild major depression Exposure to STD Polysubstance abuse Surgical History History of total left knee replacement History of tonsillectomy History of umbilical hernia repair Hx of arthroscopy of right knee History of arthroscopy of left knee Family History Mother Diabetes mellitus Hypertension Father No problems noted. Other Substance use disorder Social History Housing: Apartment Are you a primary child care team lead to a significant other at home: No Do you presently have visiting nurse or other home services: No Alcohol intake: never Patient Tobacco Use Status: Current everyday Tobacco user Tobacco use type: Cigarette Cigarette Packs Per Day: 0.5 Cigarettes Per Day: 10 Years Smoked: 20 e-Cigarette/Vaping Use: Never Used Second Hand Smoke Exposure: No service: No Current occupational status: unemployed and disabled Cognitive needs: No Hearing needs: No Vision needs: No Questionnaire Thrive Questionnaire Date Thrive assessed: 10/11/24 I am a: Patient What is your living situation today?: I do not have a steady places to live I am temporarily staying with others Within the past 12 months, did the food you bought not last and you didn't have the money to get more?: Often true Within the past 12 months, did you worry whether your food would run out before you got money to buy more?: Often true Do you have trouble paying for medicines?: Yes Do you have trouble getting transportation to medical appointments?: Yes Do you have trouble paying your heating and electricity bill?: No Do you have trouble taking care of your child, family member or friend?: Yes Do you have trouble with day-to-day activities such as bathing, preparing meals, shopping, managing finances, etc.?: Yes Are you currently unemployed and looking for a job?: Yes Are you interested in more education?: No THRIVE Score: 4 SHELLEY-7 AMB Questionnaire SHELLEY-7 Date SHELLEY - 7 assessed: 07/30/24 Source: Developed by Drs. Dario Christopher, Tia Lopez, Vladimir Soto and colleagues, with an educational yunior from [employer]. Review of Systems Const All systems reviewed & are unremarkable except as noted in HPI and below Card Denies chest pain at rest, Denies chest pain with activity, Denies edema, Denies irregular heart rhythm, Denies claudication, Denies dyspnea, Denies dyspnea on exertion, Denies orthopnea, Denies paroxysmal nocturnal dyspnea and Denies slow heart rate Resp Denies cough, Denies dyspnea and Denies dyspnea on exertion Physical exam (Primary Care) Vital Signs: Last Vital Signs Temp 97.3 F 12/31/24 14:19 Pulse 75 12/31/24 14:19 BP 138/80 12/31/24 14:19 Pulse Ox 95 12/31/24 14:19 Oxygen Delivery Method Room Air 12/31/24 14:19 BMI result Body Mass Index 38.4 BMI Assessment/Plan discussion: High BMI High, discussed plan: lifestyle, weight reduction, dietary and physical activity Tobacco/Smoking Status: Tobacco use Status Tobacco use date assessed 12/31/24 12/31/24 14:29 Patient Tobacco Use Status Current everyday Tobacco 12/31/24 14:29 Tobacco use type Cigarette 12/31/24 14:29 e-Cigarette/Vaping Use Never Used 12/31/24 14:29 Thrive Assessment: Date of Thrive Assessment Date Thrive assessed 10/11/24 12/31/24 14:29 Resp Effort & Inspection: normal respiratory effort Auscultation: clear to auscultation bilaterally Cardio Jugular venous distension: no JVD Rate: regular rate Rhythm: regular rhythm Heart sounds: S1 normal heart sound present and S2 normal heart sound present Extrem General: Yes full ROM Results AMB Hemoglobin A1c AMB Hemoglobin A1c 7.5 % Last Edit by WILLIAM Mcmahan on 12/31/24 14:33 Results Reviewed Results Reviewed: Laboratory Last Values Hgb A1c (Clinic) 7.5 % (4.0-6.0) H 12/31/24 14:17 Coding Level of Care Code Est Pt Level 4 (32763) Complex EM visit Add On G2211 Diagnoses Type 2 diabetes mellitus with hyperglycemia, without long-term current use of insulin E11.65 Diabetes mellitus ad terminal makeup operator insulin use: without ad terminal makeup operator use Diabetes mellitus complication status: with hyperglycemia Essential hypertension I10 Insomnia G47.00 Moderate recurrent major depression F33.1 Neuropathy G62.9 Time Spent (min) 21 Assessment & Plan Assessment & Plan (1) Type 2 diabetes mellitus: Code(s): E11.9 - Type 2 diabetes mellitus without complications Category: Medical Qualifiers: Diabetes mellitus assisted insulin use: without assisted use Diabetes mellitus complication status: with hyperglycemia Qualified Code(s): E11.65 - Type 2 diabetes mellitus with hyperglycemia (2) Essential hypertension: Code(s): I10 - Essential (primary) hypertension Category: Medical (3) Insomnia: Code(s): G47.00 - Insomnia, unspecified Category: Medical (4) Moderate recurrent major depression: Code(s): F33.1 - Major depressive disorder, recurrent, moderate Category: Medical (5) Neuropathy: Code(s): G62.9 - Polyneuropathy, unspecified Category: Medical Plan 1. Type 2 diabetes mellitus without complications E11.9 HCC 19 The patient's A1c is elevated at 7.5, which is above the goal of 7.0. A trial of Ozempic will be initiated to improve glycemic control, pending prior authorization from insurance. If Ozempic is not approved, the plan is to increase the dose of Trulicity. New blood work will also be ordered. 2. Polyneuropathy, unspecified G62.9 The patient reports symptoms of jumpiness and paresthesias in the legs at night. He has a history of these symptoms, which were previously effectively managed with gabapentin taken at bedtime. 3. Essential (primary) hypertension I10 The patient's blood pressure is well-controlled on his current medications. He will continue his current antihypertensive regimen. 4. Vitamin D deficiency, unspecified E55.9 The patient is in need of a refill for his vitamin D supplement. A prescription refill for vitamin D will be sent to his pharmacy. 5. Hyperlipidemia, unspecified E78.5 Continue statin. LDL goal is les than 70. 6. Depression, unspecified F32.A Continue SSRIs. Orders: Orders Microalbumin, Random (w Creat) Today R80.9 - Proteinuria, unspecified AMB Hemoglobin A1c Today Z13.9 - Encounter for screening, unspecified Vitamin D 25-OH Total Today E55.9 - Vitamin D deficiency, unspecified Complete Blood Count Auto Diff Today D64.9 - Anemia, unspecified Comprehensive Julian. Panel Fast Today E11.65 - Type 2 diabetes mellitus with hyperglycemia Medications: New semaglutide (Ozempic) for 4 weeks 0.25 mg (0.368 mL) subcut QWEEK 1.472 mL 0RF 4 weeks E11.65 - Type 2 diabetes mellitus with hyperglycemia gabapentin 300 mg PO BEDTIME 30 caps 0RF 30 days Refilled ibuprofen 800 mg PO Q8H PRN 90 tabs 0RF pain 30 days melatonin 20 mg (2 x 10 mg) PO BEDTIME 180 caps 1RF 90 days
[2024-12-31 14:19] VITALS: BP 138/80; PULSE 75; TEMP 36.3; O2SAT 95; BMI 38.4
== END 2024-12-31 14:42 | disposition home or self-care (01) ==
LOC: HO.HMCH 14:11
PROVIDERS: PCP Internal Medicine; Visit Provider Internal Medicine
DX: E11.65 Type 2 diabetes mellitus with hyperglycemia (principal); I10 Essential (primary) hypertension; G47.00 Insomnia, unspecified; F33.1 Major depressive disorder, recurrent, moderate; G62.9 Polyneuropathy, unspecified; Z13.9 Encounter for screening, unspecified

== ENCOUNTER → 2024-12-31 14:10 | Outpatient (BNVA) | payer OTHER, SELFPAY | PROVIDERS: PCP Internal Medicine; Visit Provider Internal Medicine | DX: E11.65 Type 2 diabetes mellitus with hyperglycemia (principal); E11.40 Type 2 diabetes mellitus with diabetic neuropathy, unspecified; I10 Essential (primary) hypertension; G47.00 Insomnia, unspecified; F33.1 Major depressive disorder, recurrent, moderate; E55.9 Vitamin D deficiency, unspecified; E78.5 Hyperlipidemia, unspecified; Z79.84 Long term (current) use of oral hypoglycemic drugs; Z79.899 Other long term (current) drug therapy | CPT/HCPCS: 83036; 99212 ==

== ENCOUNTER → 2025-01-03 09:02 | Outpatient (BNVA) | payer OTHER, SELFPAY | PROVIDERS: Visit Provider Orthopaedic Surgery | DX: Z47.1 Aftercare following joint replacement surgery (principal); Z96.652 Presence of left artificial knee joint | CPT/HCPCS: 99212 ==

== ENCOUNTER 2025-02-12 13:08 | Outpatient (AMB) | payer OTHER, SELFPAY ==
--- OUTSIDE RECORDS SUMMARY | 2024-08-22 05:00 | XMS_ITS ---
Author Organization [facility] Address [address] [place] [id number] Care Team Providers Care Locomotive Engineer Name Role Phone [facility] Primary Care Provider [phone] Mariana Macias [facility] [phone] Encounters Encounter Location Date Provider Diagnosis [facility] [address] [place] [phone] 08/22/2024 Mariana Macias Plan Of Treatment No Information Progress Notes * Koki DYSONOB:1965 ( 59 yo M)Acc No.[id number]:08/22/2024 Case Management New Patient: Nilsa FRANCIS Liborio Provider: Juan Macias :1965 A ge:58 Y S ex:Male Date:08/22/2024 Address:[address], [id number] Pcp:[facility] Subjective: * Chief Complaints: * * HPI: S ocial Service: Referral Source w alk-in. I nterpretation for medical provider alessandra mcdermott, Mail leaf size picker. Objective: Assessment: Plan: * Treatment: * Images: Billing Information: * Visit Code: * Procedure Codes: Care Plan Details* * Electronic signature of Ozzie Macias on 02/12/2025 at 05:08 PM EST Sign off status: Pending * Provider: Juan Macias Date: 0 08/22/2024 Generated for Gamalieli namrata/Faalec/eTransmitting on: 1 04/15/2024 05:08 PM EST History and Physical Notes * HPI (History of Present Illness) Category Sub-Category Detail Notes Category Not es Social Service Referral Source walk-in Interpretation for medical provider hous ing, Mail leaf size picker
--- OUTSIDE RECORDS SUMMARY | 2025-02-08 07:57 | XMS_ITS | Encounter Summary ---
Author Organization [facility] Address [address] [place] [address] Care Team Providers Care Occupational Hygienist Name Role Phone Sara Albright MD Primary Care Provider [phone] Reason for Visit * Reason Comments Hypertension HTN 200/100 for past 2 days. Pt states been feeling off , N/V. On Lisinopril 40mg. Encounter Details Date Type Department Care Team (Late st Contact Info) Description 02/08/2025 7:57 AM EST - 02/08/2025 11:29 AM EST Emergency [facility] Emergency [address] [place] [id number] Edy Starks MD [address] [place] [address] Influenza A (Primary Dx); Hypertension, unspecified type Discharge Disposition: Home or Self Care Social History Tobacco Use Types Packs/Day Years Used Date Smoking Tobacco: Every Day Cigarettes Alcohol Use Standard Drinks/Week Comments No 0 (1 standard drink = 0.6 oz pur e alcohol) Sex and Gender Information Value Date Recorded Sex Assigned at Not on file Legal Sex Male 3:00 AM EST Gender Identity Not on file Sexual Orientation Not on file documented as of this encounter Last Filed Vital Signs Vital Sign Reading Time Taken Comments Blood Pressure 130/79 02/08/2025 11:12 AM EST Pulse 69 02/08/2025 11:12 AM EST Temperature 36.6 C (97.9 F) 02/08/2025 11:12 AM EST Respiratory Rate 18 02/08/2025 11:12 AM EST Oxygen Saturation 95% 02/08/2025 11:12 AM EST Inhaled Oxygen Concentration - - Weight 118 kg (260 lb) 02/08/2025 7:19 AM EST Height 180.3 cm (5' 11 ) 02/08/2025 7:19 AM EST Body Mass Index 36.26 02/08/2025 7:19 AM EST documented in this encounter Functional Status * Calculated C-SSRS Risk Score (Lifetime/Recent) Answer Date of Assessment Author No Risk Indicated 02/08/2025 7:19 AM EST Delano Schrader RN * [place] Suicide Severity Rating Scale (Screener/Recent Self-Report) Question Answer Date of Assessment Author 1. Wish to be (Past 1 Month) No 025 7:19 AM EST Delano Schrader RN 2. Non-Specific Active Suici melchor Thoughts (Past 1 Month) No 02/08/2025 7:19 AM EST Crispin Schrader RN 6. Suicidal Behavior (Lifetime) No 7:19 AM EST Delano Schrader RN documented as of this encounter Discharge Instructions * Discharge Instructions* Eyd Starks MD - 02/08/2025 11:18 AM EST Your testing showed mildly elevated blood glucose. This seems to be due to the fact that you have influenza A. This is a virus and the length of the illness can be improved with the antiviral medication that was prescribed. Be sure to go to the pharmacy and pick it up and start it today because it is only beneficial within the first 2 days of illness. Follow-up with your primary doctor if not improved in a week Return to the emergency department for any new or concerning symptoms especially worsening shortness of breath * Attachments The following attachments cannot be sent through Care Everywhere. * Immunization: Influenza (Hungarian) documented in this encounter Medications at Time of Discharge oseltamivir (TAMIFLU) 75 mg capsule Take 1 capsule (75 mg total) by mouth every 12 (twelve) hours for 5 days. 10 capsule 02/08/2025 02/13/2025 documented as of this encounter Ordered Prescriptions Prescription Sig Dispense Quantity Refills Last Filled Start Date End Date oseltamivir (TAMIFLU) 75 mg capsule Take 1 capsule (75 mg total) by mouth every 12 (twelve) hours for 5 days. 10 capsule 02/08/2025 5 documented in this encounter Discharge Disposition Disposition Code Departure Means Destination Comment s Home or Self Care documented in this encounter Progress Notes * Delano Schrader RN - 02/08/2025 7:19 AM EST Pt arrives steady even gait c/o feeling off. Pt states he's had N/V x 2 days and states he took his BP this morning which was 204/100. Pt takes 40mg Lisinopril which he took this morning as usual. Pt adds he sometimes trips a lot and wants to get checked out. Pt well appearing. BP 159/87 in triage. * Edy Starks MD - 02/08/2025 7:14 AM EST Images from the original note were not included. [facility] EMERGENCY EMERGENCY DEPARTMENT ENCOUNTER Patient: Liborio Dyson MR# [id number] Time of Service: 02/08/2025 7:57 AM History PCP: Sara Albright MD. Chief Complaint Patient presents with Hypertension HTN 200/100 for past 2 days. Pt states been feeling off , N/V. On Lisinopril 40mg. Liborio Dyson is a 59 y.o. male who presents to the ED with chief complaint Hypertension (HTN 200/100for past 2 days. Pt states been feeling off , N/V. On Lisinopril 40mg.) . States that since yesterday he has had vague lightheadedness. He states at 1 point he felt a little bit off balance and he heard ringing in his ears. His blood pressure was quite high this morning and he took his blood pressure medications. He states his symptoms are significantly improved, almost gone at this point. He denies any weakness numbness or tingling anywhere or headache. He does state he has had a cough that started yesterday. He denies feeling short of breath. He is a smoker. ROS Negative except for HPI. Allergies: Patient has no known allergies. Medical History[1] Problem List[2] Surgical History[3] Family History[4] Social History[5] Physical Exam Vitals: 02/08/25 0717 02/08/25 0719 02/08/25 1112 BP: (!) 159/87 130/79 BP Location: Right arm Patient Position: Sitting Pulse: 92 69 Resp: 18 18 Temp: 36.9 ??C (98.4 ??F) 36.6 ??C (97.9 ??F) TempSrc: Oral SpO2: 96% 95% Weight: 113 kg (250 lb) 118 kg (260 lb) Height: 1.803 m (71 ) 1.803 m (71 ) General Appearance: No acute distress, occasional coarse cough noted Skin: Dry Eyes: EOMI, no scleral icterus HENT: Normocephalic, atraumatic, moist mucous membranes Neck: Supple, normal range of motion Cardiovascular: Regular rate and rhythm, no murmur, 2+ radial pulses Respiratory: Lungs clear to auscultation bilaterally, no respiratory distress, no wheezing or rhonchi Abdomen: Soft, non-tender, non-distended MSK: No edema or tenderness Neurologic: Awake, alert, cranial nerves II through XII intact, 5 out of 5 strength in bilateral upper and lower extremities with normal sensation to light touch. Romberg negative and no pronator drift. Wcirbt-eg-kcll and eylh-yi-udwy normal bilaterally, NIH 0 Psychiatric: Appropriate, cooperative EKG/Rhythm Strip: EKG shows normal sinus rhythm with no acute EKG changes as interpreted by myself contemporaneously and there is no change from EKG on April 06, 2022 Results Results for orders placed or performed during the hospital encounter of 02/08/25 ECG 12 lead Collection Time: 02/08/25 7:31 AM Result Value Ref Range Ventricular Rate ECG 82 BPM Atrial Rate 82 BPM P-R Interval 178 ms QRS Duration 90 ms Q-T Interval 376 ms QTc 439 ms P Wave [place] 13 degrees R [place] 24 degrees T [place] 34 degrees ECG Interpretation Normal sinus rhythm Possible Left atrial enlargement Borderline ECG When compared with ECG of 06-APR-2022 08:15, No significant change was found Comprehensive metabolic panel Collection Time: 02/08/25 8:09 AM Result Value Ref Range Sodium 134 133 - 145 mmol/L Potassium 4.4 3.5 - 5.5 mmol/L Chloride 100 96 - 110 mmol/L CO2 26 21 - 32 mmol/L Anion Gap 8 3 - 11 Glucose 260 (H) 70 - 100 mg/dL BUN 11 5 - 25 mg/dL Creatinine 1.11 0.70 - 1.30 mg/dL eGFR 77 >=60 mL/min/1.73m2 BUN/Creatinine Ratio 9.9 Calcium 9.4 8.5 - 10.5 mg/dL AST (SGOT) 38 10 - 42 unit/L ALT (SGPT) 45 10 - 60 unit/L Alkaline Phosphatase 128 (H) 42 - 121 unit/L Total Protein 7.4 6.0 - 8.0 g/dL Albumin 4.2 3.2 - 5.0 g/dL Total Bilirubin 0.3 0.0 - 1.4 mg/dL Lipase Collection Time: 02/08/25 8:09 AM Result Value Ref Range Lipase 23 12 - 53 unit/L CBC auto differential Collection Time: 02/08/25 8:09 AM Result Value Ref Range WBC 6.6 4.8 - 10.8 K/mcL RBC 5.00 4.50 - 5.50 M/mcL Hemoglobin 13.0 (L) 13.5 - 17.5 g/dL Hematocrit 40.4 (L) 42.0 - 54.0 % MCV 80.6 79.0 - 98.0 FL MCH 25.9 (L) 27.0 - 32.0 pcg MCHC 32.2 32.0 - 37.0 g/dL RDW 13.1 11.0 - 15.0 % Platelets 180 130 - 400 K/mcL MPV 10.3 7.0 - 11.0 FL NRBC 0.0 <1.0 % NRBC Absolute 0.00 <0.10 K/mcL Neutrophils Relative 75.5 % Lymphocytes Relative 11.9 % Monocytes Relative 9.7 % Eosinophils Relative 0.6 % Basophils Relative 0.5 % Immature Granulocytes Relative 1.8 % Neutrophils Absolute 4.97 1.50 - 7.00 K/mcL Lymphocytes Absolute 0.78 (L) 1.00 - 5.00 K/mcL Monocytes Absolute 0.64 0.20 - 1.00 K/mcL Eosinophils Absolute 0.04 0.00 - 0.50 K/mcL Basophils Absolute 0.03 0.00 - 0.20 K/mcL Immature Granulocytes Absolute 0.12 (H) 0.00 - 0.03 K/mcL Troponin I high sensitivity Collection Time: 02/08/25 8:09 AM Result Value Ref Range High Sensitivity Troponin I 3 <=53 ng/L [id number], RSV, Influenza A and B qualitative RT-PCR Collection Time: 02/08/25 9:18 AM Specimen: Nares; Swab Result Value Ref Range Influenza A PCR Detected (A) Not Detected Influenza B PCR Not Detected Not Detected RSV PCR Not Detected Not Detected SARS COV-2 Not Detected Not Detected XR Chest 2 Views ED Interpretation No infiltrate noted Final Result No acute findings. -------- FINAL REPORT -------- Dictated By: Sawyer Perales Dictated Date: 02/08/2025 09:43 ET Assigned Physician: Sawyer Perales Reviewed and Electronically Signed By: Sawyer Perales Signed Date: 02/08/2025 09:45 ET Workstation ID: [id number] Transcribed By: Self Edit Transcribed Date: 02/08/2025 09:43 ET Procedures Medical Decision Making 59-year-old male with a history of hypertension comes in with some vague dizziness and hypertensionat home. He is not hypertensive here. He has had a cough for 2 days. Considered CVA although this seems unlikely due to the fact that his symptoms have resolved and were nonspecific. He has no neurologic deficits so I do not think he needs a head CT or other evaluation for stroke. Considered electrolyte abnormality but the lab results in that regard are normal. He does have moderate hyperglycemia, he is a diabetic and does have an infection. X-ray shows no signs of pneumonia but his influenza Ais positive. I discussed this with the patient he is resting comfortably. 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 Labs and imaging ordered in ED independently reviewed by me. My interpretation of the labs and/or imaging per ED course. Medications Administered Medications - No data to display ED Course as of 02/08/25 1119 TueFeb 08, 2025 1119 Flu A PCR(!): Detected [WG] 111 Glucose(!): 260 Discussed these results with the patient. He is resting comfortably and his blood pressure is good at this time. He is in no respiratory distress. I advised him to go directly to the pharmacy to pickup the oseltamivir discharge instructions. He is comfortable and very comfortable going home [WG] ED Course User Index [WG] Edy Starks MD Clinical Impressions as of 02/08/25 1119 Influenza A Hypertension, unspecified type Additional imaging considered but not ordered: Head CT as noted above Chronic conditions that impact care: Hypertension, diabetes Prescription management: In addition to any applicable prescriptions, the patient was counseled by me regarding [id number] medications that can be used at home. New Prescriptions OSELTAMIVIR (TAMIFLU) 75 MG CAPSULE Take 1 capsule (75 mg total) by mouth every 12 (twelve) hours for 5 days. Disposition: Home CLINICAL IMPRESSION: 1. Influenza A 2. Hypertension, unspecified type 02/08/2025 MD Edy Gilbert MD 02/08/25 0943 [1] Past Medical History: Diagnosis Date Anxiety Depression Hypertension Pre-diabetes [2] There is no problem list on file for this patient. [3] Past Surgical History: Procedure Laterality Date KNEE ARTHROSCOPY W/ DEBRIDEMENT PROCEDURE: CT ARTHRS KNEE DEBRIDEMENT/SHAVING ARTCLR CRTLG; COMMENT: dr lewis [4] No family history on file. [5] Social History Tobacco Use Smoking status: Every Day Current packs/day: 1.00 Types: Cigarettes Substance Use Topics Alcohol use: No Drug use: No Edy Starks MD 02/08/25 1121 documented in this encounter Plan of Treatment Not on file documented as of this encounter Procedures Procedure Name Priority Date/Time Associated Diagnosis Comments ECG ANNOTATED 02/11/2025 XR CHEST 2 VIEWS STAT 02/08/2025 9:39 AM EST [id number], RSV, FLU A AND B QUALITATIVE RT-PCR, INTERNAL LAB STAT 02/08/2025 9:18 AM EST TROPONIN I HIGH SENSITIVITY STAT 02/08/2025 8:09 AM EST CBC WITH AUTO DIFFERENTIAL STAT 02/08/2025 8:09 AM EST CBC AND DIFFERENTIAL STAT 02/08/2025 8:09 AM EST LIPASE STAT 02/08/2025 8:09 AM EST COMPREHENSIVE METABOLIC PANEL STAT 02/08/2025 8:09 AM EST ECG 12-LEAD STAT 02/08/2025 7:31 AM EST documented in this encounter Results * ECG-Annotated (02/11/2025) us Provider Onbase MD ECG ORDERABLES Final Result * XR Chest 2 Views (02/08/2025 9:39 AM EST) Anatomical Region Laterality Modality Body Radiographic Beena ging 02/08/2025 9:43 AM EST Impressions 02/08/2025 9:45 AM EST No acute findings. -------- FINAL REPORT -------- Dictated By: Sawyer Perales Dictated Date: 02/08/2025 09:43 ET Assigned Physician: Sawyer Perales Reviewed and Electronically Signed By: Sawyer Perales Signed Date: 02/08/2025 09:45 ET Workstation ID: [id number] Transcribed By: Self Edit Transcribed Date: 02/08/2025 09:43 ET Narrative 02/08/2025 9:45 AM EST PROCEDURE: PA and lateral radiographs of the chest. HISTORY: Cough, new onset. COMPARISON: 04/06/2022. FINDINGS: Degenerative changes of the spine. Mild degenerative changes of the shoulders. Lungs, pleural spaces, pulmonary vasculature, and cardiomediastinal contours are normal. Procedure Note Sawyer Perales MD - 02/08/2025 PROCEDURE: PA and lateral radiographs of the chest. HISTORY: Cough, new onset. COMPARISON: 04/06/2022. FINDINGS: Degenerative changes of the spine. Mild degenerative changes of theshoulders. Lungs, pleural spaces, pulmonary vasculature, andcardiomediastinal contours are normal. IMPRESSION: No acute findings. -------- FINAL REPORT -------- Dictated By: Sawyer Perales Dictated Date: 02/08/2025 09:43 ET Assigned Physician: Sawyer Perales Reviewed and Electronically Signed By: Sawyer Perales Signed Date: 02/08/2025 09:45 ET Workstation ID: [id number] Transcribed By: Self Edit Transcribed Date: 02/08/2025 09:43 ET us Edy Starks MD IMG XR PROCEDURES Final Resu lt * (ABNORMAL) [id number], RSV, Influenza A and B qualitative RT-PCR (02/08/2025 9:18 AM EST) [facility] [address] [facility] Influenza A PCR Detected(A) Not Detected LAB MICROBIOLOGY METHOD 02/08/2025 10:49 AM EST [facility] Comment:This patient is posi tive for influenza A. If the patient is admitted, please order the Respiratory Virus Panel PCR ([facility] ID: [id number]) so our lab can subtype the influenza A, per CDC recommendations. Influenza B PCR Not Detected Not Detected LAB MICROBIOLOGY METHOD 02/08/2025 10:49 AM EST [facility] RSV PCR Not Detected Not Detected LAB MICROBIOLOGY METHOD 02/08/2025 10:49 AM EST [facility] SARS COV-2 Not Detected Not Detected LAB MICROBIOLOGY METHOD 02/08/2025 10:49 AM EST [facility] Swab Both anterior nares / Unknown Non-blood Collection / Unknown 02/08/2025 9:18 AM EST 02/08/2025 9:32 AM EST us Edy Starks MD LAB MICROBIOLOGY - GENERAL O RDERABLES Final Result [facility] [address] [place] [address], * Troponin I high sensitivity (02/08/2025 8:09 AM EST) [facility] [address] High Sensitivity Troponin I 3 <=53 ng/L 02/08/2025 8:57 AM [facility] Blood Venous blood specimen / Unknown Venipuncture / Unknown 02/08/2025 8:09 AM EST 02/08/2025 8:31 AM EST Stephanie KAPADIA LAB BLOOD ORDERABLES Final R esult [facility] [address] [place] [address], * (ABNORMAL) CBC auto differential (02/08/2025 8:09 AM EST) [facility] [address] WBC 6.6 4.8 - 10.8 K/mcL LAB HEMETOLOGY METHOD 02/08/2025 8:36 AM [facility] RBC 5.00 4.50 - 5.50 M/[facility] LAB HEMETOLOGY METHOD 02/08/2025 8:36 AM [facility] Hemoglobin 13.0(L) 13.5 - 17.5 g/dL LAB HEMETOLOGY METHOD 02/08/2025 8:36 AM [facility] Hematocrit 40.4(L) 42.0 - 54.0 % LAB HEMETOLOGY METHOD 02/08/2025 8:36 AM [facility] MCV 80.6 79.0 - 98.0 FL LAB HEMETOLOGY METHOD 02/08/2025 8:36 AM [facility] MCH 25.9(L) 27.0 - 32.0 pcg LAB HEMETOLOGY METHOD 02/08/2025 8:36 AM [facility] MCHC 32.2 32.0 - 37.0 g/dL LAB HEMETOLOGY METHOD 02/08/2025 8:36 AM [facility] RDW 13.1 11.0 - 15.0 % LAB HEMETOLOGY METHOD 02/08/2025 8:36 AM [facility] Platelets 180 130 - 400 K/mcL LAB HEMETOLOGY METHOD 02/08/2025 8:36 AM [facility] MPV 10.3 7.0 - 11.0 FL LAB HEMETOLOGY METHOD 02/08/2025 8:36 AM [facility] NRBC 0.0 <1.0 % LAB HEMETOLOGY METHOD 02/08/2025 8:36 AM [facility] NRBC Absolute 0.00 <0.10 K/mcL LAB HEMETOLOGY METHOD 02/08/2025 8:36 AM [facility] Neutrophils Relative 75.5 % LAB HEMETOLOGY METHOD 02/08/2025 8:36 AM [facility] Lymphocytes Relative 11.9 % LAB HEMETOLOGY METHOD 02/08/2025 8:36 AM [facility] Monocytes Relative 9.7 % LAB HEMETOLOGY METHOD 02/08/2025 8:36 AM [facility] Eosinophils Relative 0.6 % LAB HEMETOLOGY METHOD 02/08/2025 8:36 AM [facility] Basophils Relative 0.5 % LAB HEMETOLOGY METHOD 02/08/2025 8:36 AM [facility] Immature Granulocytes Relative 1.8 % LAB HEMETOLOGY METHOD 02/08/2025 8:36 AM [facility] Neutrophils Absolute 4.97 1.50 - 7.00 K/mcL LAB HEMETOLOGY METHOD 02/08/2025 8:36 AM [facility] Lymphocytes Absolute 0.78(L) 1.00 - 5.00 K/mcL LAB HEMETOLOGY METHOD 02/08/2025 8:36 AM [facility] Monocytes Absolute 0.64 0.20 - 1.00 K/mcL LAB HEMETOLOGY METHOD 02/08/2025 8:36 AM EST [facility] Eosinophils Absolute 0.04 0.00 - 0.50 K/mcL LAB HEMETOLOGY METHOD 02/08/2025 8:36 AM EST [facility] Basophils Absolute 0.03 0.00 - 0.20 K/mcL LAB HEMETOLOGY METHOD 02/08/2025 8:36 AM EST [facility] Immature Granulocytes Absolute 0.12(H) 0.00 - 0.03 K/[facility] LAB HEMETOLOGY METHOD 02/08/2025 8:36 AM EST [facility] Blood Venous blood specimen / Unknown Venipuncture / Unknown 02/08/2025 8:09 AM EST 02/08/2025 8:31 AM EST us Edy Starks MD LAB BLOOD ORDERABLES Final R esult Performing Organization Address City/[facility]/ZIP Co de Phone Number [facility] [address] [place] [address], [place] [phone] * Lipase (02/08/2025 8:09 AM EST) Lipase 23 12 - 53 unit/L 02/08/2025 9:00 AM EST [facility] Blood Venous blood specimen / Unknown Venipuncture / Unknown 02/08/2025 8:09 AM EST 02/08/2025 8:31 AM EST us Edy Starks MD LAB BLOOD ORDERABLES Final R esult [facility] [address] [place] [address], [place] [phone] * (ABNORMAL) Comprehensive metabolic panel (02/08/2025 8:09 AM EST) Sodium 134 133 - 145 mmol/L 02/08/2025 9:00 AM EST [facility] Potassium 4.4 3.5 - 5.5 mmol/L 02/08/2025 9:00 AM [facility] Chloride 100 96 - 110 mmol/L 02/08/2025 9:00 AM [facility] CO2 26 21 - 32 mmol/L 02/08/2025 9:00 AM [facility] Anion Gap 8 3 - 11 02/08/2025 9:00 AM [facility] Glucose 260(H) 70 - 100 mg/dL 02/08/2025 9:00 AM [facility] BUN 11 5 - 25 mg/dL 02/08/2025 9:00 AM [facility] Creatinine 1.11 0.70 - 1.30 mg/dL 02/08/2025 9:00 AM [facility] eGFR 77 >=60 mL/min/1. 73m2 02/08/2025 9:00 AM [facility] Comment:Calculation based on the Chronic Kidney Disease Epidemiology Collaboration (CKD-EPI) equation refit without adjustment for race. BUN/Creatinine Ratio 9.9 02/08/2025 9:00 AM [facility] Calcium 9.4 8.5 - 10.5 mg/dL 02/08/2025 9:00 AM [facility] AST (SGOT) 38 10 - 42 unit/L 02/08/2025 9:00 AM [facility] ALT (SGPT) 45 10 - 60 unit/L 02/08/2025 9:00 AM [facility] Alkaline Phosphatase 128(H) 42 - 121 unit/L 02/08/2025 9:00 AM [facility] Total Protein 7.4 6.0 - 8.0 g/dL 02/08/2025 9:00 AM [facility] Albumin 4.2 3.2 - 5.0 g/dL 02/08/2025 9:00 AM EST [facility] Total Bilirubin 0.3 0.0 - 1.4 mg/dL 02/08/2025 9:00 AM EST [facility] Blood Venous blood specimen / Unknown Venipuncture / Unknown 02/08/2025 8:09 AM EST 02/08/2025 8:31 AM EST us Edy Starks MD LAB BLOOD ORDERABLES Final R esult [facility]) [facility] [address] [place] [address], * ECG 12 lead (02/08/2025 7:31 AM EST) Ventricular Rate ECG 82 BPM GEMUSE Atrial Rate 82 BPM GEMUSE P-R Interval 178 ms GEMUSE QRS Duration 90 ms GEMUSE Q-T Interval 376 ms GEMUSE QTc 439 ms GEMUSE P Wave [place] 13 degrees GEMUSE R [place] 24 degrees GEMUSE T [place] 34 degrees GEMUSE ECG Interpretation Normal sinus rhythm Possible Left atrial enlargement Borderline ECG When compared with ECG of 06-APR-2022 08:15, No significant change was found Confirmed by CARRINGTON ARMENDARIZ ([id number]) on 02/08/2025 7:27:27 PM GEMUSE 02/08/2025 7:31 AM EST 02/08/2025 7:27 PM EST us Edy Starks MD ECG ORDERABLES Final Result GEMUSE documented in this encounter Visit Diagnoses Diagnosis Influenza A- Primary Influenza with other respiratory manifestations Hypertension, unspecified type documented in this encounter Additional Health Concerns Infection Onset Date Last Indicated Resolved Time Respiratory Rule-Out 02/08/2025 02/08/20252 025 10:49 AM EST COVID-19 Rule-Out 02/08/2025 02/08/2025 02/08/2025 10:49 AM EST Influenza 02/08/2025 02/08/2025 documented as of this encounter Care Teams Occupational Hygienist Relationship Specialty Start Date End Date Sara Albright MD [address] [facility] , [address] [facility] D/B/A: Kushal [facility] In Internal Medicine JOSE Fatima PCP - General Internal Medicine 02/08/25 documented as of this encounter
--- NOTE | 2025-02-12 13:18 | MHC.PC.OV ---
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 Required: No Accompanied by: Self / Same As Patient Allergies No Known Allergies (No Known Allergies*) Allergy (Verified 02/12/25 13:39) Medication List - Last Reconciled 02/12/25 by Sara Albright MD blood pressure test kit-large (Advocate Blood Pressure Monitor kit) As directed blood sugar diagnostic (FreeStyle Lite Strips) Use 1 strip once a day blood-glucose meter (FreeStyle Lite Meter kit) As directed clonidine HCl 0.2 mg PO TID 30 days docusate sodium 100 mg PO BID 14 days dulaglutide (Trulicity) 1.5 mg (0.5 mL) subcut QWEEK 90 days gabapentin 300 mg PO BEDTIME 30 days ibuprofen 800 mg PO Q8H PRN 30 days lancets (FreeStyle Lancets) Use 1 lancet once a day lisinopril 40 mg PO DAILY 90 days melatonin 20 mg (2 x 10 mg) PO BEDTIME 90 days metformin 1,000 mg PO BID 90 days methadone (Methadone Intensol) 60 mg PO BEDTIME methadone 125 mg PO DAILY nicotine (polacrilex) 4 mg buccal Q8H PRN 30 days sertraline 100 mg PO DAILY spironolactone 25 mg PO DAILY trazodone 50 mg PO BEDTIME walker Folding front wheeled walker Tobacco use date assessed: 02/12/25 Dental Screening Dental Screen Date: 02/12/25 HPI HPI Comments History of Present Illness Details The patient is a 59-year-old male presenting for follow-up of flu-like symptoms. He went to the [facility] emergency room last and was diagnosed with influenza. He was prescribed a five-day course of Tamiflu, to be taken every 12 hours, and is still taking it. He reports currently feeling weird, with a sore throat and wheezing. His medication list includes clonidine 0.2 mg three times a day, docusate as needed for constipation, Trulicity 1.5, gabapentin, ibuprofen, lisinopril 40 mg, melatonin, metformin, methadone 60 mg, sertraline, spironolactone, and trazodone. His last HbA1c last month was 7.5%. He has not received the flu vaccine. [facility] Medical History (Updated 02/12/25 @ 13:55 by Sara Albright MD) Morbid obesity Type 2 diabetes mellitus Hypertension COVID-19 Arthritis HTN (hypertension) Diabetes Mild major depression Exposure to STD Polysubstance abuse Surgical History History of total left knee replacement History of tonsillectomy History of umbilical hernia repair Hx of arthroscopy of right knee History of arthroscopy of left knee Family History Mother Diabetes mellitus Hypertension Father No problems noted. Other Substance use disorder Social History Housing: Apartment Are you a primary lpn care manager to a significant other at home: No Do you presently have visiting nurse or other home services: No Alcohol intake: never Patient Tobacco Use Status: Current everyday Tobacco user Tobacco use type: Cigarette Cigarette Packs Per Day: 0.5 Cigarettes Per Day: 10 Years Smoked: 20 e-Cigarette/Vaping Use: Never Used Second Hand Smoke Exposure: No service: No Current occupational status: unemployed and disabled Cognitive needs: No Hearing needs: No Vision needs: No Questionnaire PHQ-9 Over the last 2 weeks, how often have you been bothered by any of the following problems? 1. Little interest or pleasure in doing things: more than half the days 2. Feeling down, depressed, or hopeless: several days 3. Trouble falling or staying asleep, or sleeping too much: nearly every day 4. Feeling tired or having little energy: nearly every day 5. Poor appetite or overeating: more than half the days 6. Feeling bad about yourself - or that you are a failure or have let yourself or your family down: more than half the days 7. Trouble concentrating on things, such as reading the newspaper or watching television: more than half the days 8. Moving or speaking so slowly that other people could have noticed. Or the opposite - being so fidgety or restless that you have been moving around a lot more than usual: several days 9. Thoughts that you would be better off or of hurting yourself in some way: not at all Total score: 16 Depression Screening Interpretation: Positive (no suicidal thoughts) Depression Screening Follow-up: Existing condition, In treatment, Community Mental Health Worker F/U and Follow-up Visit Requested Depression Screening Done: Yes 50394 - PHQ-9 Billing: Yes Source: Developed by Drs. Dario Christopher, Vladimir Bhatia and colleagues, with an educational yunior from [employer]. Thrive Questionnaire Date Thrive assessed: 02/12/25 I am a: Patient What is your living situation today?: I do not have a steady places to live I am temporarily staying with others Within the past 12 months, did the food you bought not last and you didn't have the money to get more?: Often true Within the past 12 months, did you worry whether your food would run out before you got money to buy more?: Often true Do you have trouble paying for medicines?: Yes Do you have trouble getting transportation to medical appointments?: Yes Do you have trouble paying your heating and electricity bill?: No Do you have trouble taking care of your child, family member or friend?: Yes Do you have trouble with day-to-day activities such as bathing, preparing meals, shopping, managing finances, etc.?: Yes Are you currently unemployed and looking for a job?: Yes Are you interested in more education?: No THRIVE Score: 4 AUDIT C Alcohol Use Questionnaire (AUDIT-C) 1. How often do you have a drink containing alcohol?: Never Total Score: 0 Score Reviewed/Action Taken: No SHELLEY-7 AMB Questionnaire SHELLEY-7 Date SHELLEY - 7 assessed: 02/12/25 Source: Developed by Drs. Dario Christopher, Vladimir Bhatia and colleagues, with an educational yunior from [employer]. Review of Systems Const All systems reviewed & are unremarkable except as noted in HPI and below Card Denies chest pain at rest, Denies chest pain with activity, Denies edema, Denies irregular heart rhythm, Denies claudication, Denies dyspnea, Denies dyspnea on exertion, Denies orthopnea, Denies paroxysmal nocturnal dyspnea and Denies slow heart rate Resp Denies cough, Denies dyspnea and Denies dyspnea on exertion GI Denies abdominal pain, Denies change in bowel habits, Denies excessive flatus, Denies nausea and Denies vomiting Physical exam (Primary Care) Vital Signs: Last Vital Signs Temp 97.3 F 02/12/25 13:19 Pulse 91 02/12/25 13:19 Resp 16 02/12/25 13:19 BP 140/80 H 02/12/25 13:19 Pulse Ox 92 02/12/25 13:19 Oxygen Delivery Method Room Air 02/12/25 13:19 BMI result Body Mass Index 37.4 BMI Assessment/Plan discussion: High BMI High, discussed plan: lifestyle, weight reduction, dietary and physical activity Tobacco/Smoking Status: Tobacco use Status Tobacco use date assessed 02/12/25 02/12/25 13:23 Patient Tobacco Use Status Current everyday Tobacco 02/12/25 13:23 Tobacco use type Cigarette 02/12/25 13:23 e-Cigarette/Vaping Use Never Used 02/12/25 13:23 PHQ-9: PHQ-9 Score PHQ-9: Total score 16 02/12/25 13:23 Depression Screening Interpretation: Positive (no suicidal thoughts) Depression Screening Follow-up: Existing condition, In treatment, Community Mental Health Worker F/U and Follow-up Visit Requested Thrive Assessment: Date of Thrive Assessment Date Thrive assessed 02/12/25 02/12/25 13:23 Resp Effort & Inspection: normal respiratory effort Auscultation: wheezes expiratory wheezes Cardio Jugular venous distension: no JVD Rate: regular rate Rhythm: regular rhythm Heart sounds: S1 normal heart sound present and S2 normal heart sound present Extrem General: Yes full ROM Coding Level of Care Code Est Pt Level 4 (41205) Diagnoses Type 2 diabetes mellitus with hyperglycemia, without long-term current use of insulin E11.65 Diabetes 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 insulin use: without laborer marine terminal use Diabetes mellitus complication status: with hyperglycemia Essential hypertension I10 Influenza J11.1 Sore throat J02.9 Additional Codes PHQ-9 - 74336 - PHQ-9 Billing: Yes ([id number]) Time Spent (min) 23 Assessment & Plan Assessment & Plan (1) Type 2 diabetes mellitus: Code(s): E11.9 - Type 2 diabetes mellitus without complications Category: Medical Qualifiers: Diabetes mellitus mcfp insulin use: without mcfp use Diabetes mellitus complication status: with hyperglycemia Qualified Code(s): E11.65 - Type 2 diabetes mellitus with hyperglycemia (2) Essential hypertension: Code(s): I10 - Essential (primary) hypertension Category: Medical (3) Influenza: Code(s): J11.1 - Influenza due to unidentified influenza virus with other respiratory manifestations Category: Medical (4) Sore throat: Code(s): J02.9 - Acute pharyngitis, unspecified Category: Medical Plan Plan 1. Influenza The patient was diagnosed with influenza at the emergency room last . He is currently on Tamiflu, which was a timely intervention. Due to wheezing on the left side, an inhaler will be prescribed to relieve symptoms. For throat soreness, a lidocaine solution will be sent to the pharmacy for symptomatic relief. The patient can continue to take medication for muscle aches as needed. 2. Diabetes mellitus type 2 Continue metformin. A1c goal is equal or less than 7%. Continue Trulicity. 3. Hypertension Continue clonidine and lisinopril. Continue spironolactone. Blood pressure goal is equal or less than 130/80. 4. Sore throat Start lidocaine solution as needed. Medications: New lidocaine HCl 2% (Lidocaine Viscous) 1 appl mucous membrane BID PRN 100 mL 0RF pain 7 days albuterol sulfate 90 mcg/actuation (Ventolin HFA) 1 inh inhalation QID PRN 6.7 grams 0RF shortness of breath or wheezing 30 days
[2025-02-12 13:19] VITALS: BP 140/80; PULSE 91; RESP 16; TEMP 36.3; O2SAT 92; BMI 37.4
--- OUTSIDE RECORDS SUMMARY | 2025-02-12 17:11 | XMS_ITS | Clinical Summary ---
Author Organization [facility] Address [address] [place] [address] Phone Care Team Providers Care Bronze Plater Name Role Phone Sara Albright MD Primary Care Provider [phone] Allergies No known active allergies Medications oseltamivir (TAMIFLU) 75 mg capsule Take 1 capsule (75 mg total) by mouth every 12 (twelve) hours for 5 days. 10 capsule 02/08/2025 Active Encounters Date Type Department Care Team Description 02/08/2025 7:57 AM EST - 02/08/2025 11:[address] [facility] [address] [place] [address] Edy Starks MD Influenza A (Primary Dx); Hypertension, unspecified type Discharge Disposition: Home or Self Care from Last 3 Months Surgical History Surgery Date Site/Laterality Comments KNEE ARTHROSCOPY W/ DEBRIDEMENT PROCEDURE: [place] ARTHRS KNEE DEBRIDEMENT/SHAVING ARTCLR CRTLG; COMMENT: dr lewis Medical History Medical History Date Comments Hypertension Pre-diabetes Depression Anxiety Family History Relation Name Status Comments Brother Alive 5,2full brother s.healthy Father Alive healthy Mother Alive arthritis Sister Alive 2,one full sist er.healthy Social History Tobacco Use Types Packs/Day Years Used Date Smoking Tobacco: Every Day Cigarettes Alcohol Use Standard Drinks/Week Comments No 0 (1 standard drink = 0.6 oz pur e alcohol) Sex and Gender Information Value Date Recorded Sex Assigned at Not on file Legal Sex Male 3:00 AM EST Gender Identity Not on file Sexual Orientation Not on file Last Filed Vital Signs Vital Sign Reading [...] Mass Index 36.26 02/08/2025 7:19 AM EST Plan of Treatment Health Maintenance Due Date Last Done Comments Colorectal Cancer Screening: Colonoscopy 1967 Hepatitis B Vaccines (1 of 3 - 19+ 3-dose series) 11/17/1986 Pneumococcal Vaccine: 50+ Ye ars (1 of 2 - PCV) 11/17/1986 Zoster Vaccines (1 of 2) 11/17/2017 DTaP,Tdap,and Td Vaccines (2 - Td or Tdap) 07/10/2019 07/09/2009 Cholesterol Screening (Lipid Panel) 03/29/2023 HIV Screening 03/29/2023 Hepatitis C Screening 03/29/2023 Social Influencers of Health Screening 03/29/2023 Depression Screening 02/29/2024 COVID-19 Vaccine (1 - 2024-2 6 season) 2024 Influenza Vaccine (#1) 2024 Hypertension/CHF/CAD Annual BMP Blood Test 02/08/2026 02/08/2025 RSV Immunization Adult Patie nts (1 - 1-dose 75+ series) 11/17/2042 HIB Vaccines Aged Out No longer eligi ble based on patient's age to complete this topic HPV Vaccines Aged Out No longer eligi ble based on patient's age to complete this topic Hepatitis A Vaccines Aged Out No long er eligible based on patient's age to complete this topic IPV Vaccines Aged Out No longer eligi ble based on patient's age to complete this topic MMR Vaccines Aged Out No longer eligi ble based on patient's age to complete this topic Meningococcal ACWY Vaccine Aged Out N o longer eligible based on patient's age to complete this topic Meningococcal B Vaccine Aged Out No l onger eligible based on patient's age to complete this topic RSV Immunization Patients Un jaycob 20 months Aged Out No longer eligible b ased on patient's age to complete this topic Varicella Vaccines Aged Out No longer eligible based on patient's age to complete this topic Procedures Procedure Name Priority Date/Time Associated Diagnosis Comments ECG ANNOTATED 02/11/2025 XR CHEST 2 VIEWS STAT 02/08/2025 9:39 AM EST [id number], RSV, FLU A AND B QUALITATIVE RT-PCR, INTERNAL LAB STAT 02/08/2025 9:18 AM EST TROPONIN I HIGH SENSITIVITY STAT 02/08/2025 8:09 AM EST CBC WITH AUTO DIFFERENTIAL STAT 02/08/2025 8:09 AM EST LIPASE STAT 02/08/2025 8:09 AM EST COMPREHENSIVE METABOLIC PANEL STAT 02/08/2025 8:09 AM EST CBC AND DIFFERENTIAL STAT 02/08/2025 8:09 AM EST ECG 12-LEAD STAT 02/08/2025 7:31 AM EST from Last 3 Months Results * ECG-Annotated (02/11/2025) us Provider Onbase [...] Signed Date: 02/08/2025 09:45 ET Workstation ID: [id number] Transcribed By: Self Edit Transcribed Date: 02/08/2025 [...] Signed Date: 02/08/2025 09:45 ET Workstation ID: [id number] Transcribed By: Self Edit Transcribed Date: 02/08/2025 09:43 ET Edy Starks MD IMG XR PROCEDURES Final Resu lt * (ABNORMAL) [id number], RSV, Influenza A and B qualitative RT-PCR (02/08/2025 9:18 AM EST) Influenza A PCR Detected(A) Not Detected LAB MICROBIOLOGY METHOD 02/08/2025 10:[address] [facility] Comment:This patient is posi tive for influenza A. If the patient is admitted, please order the Respiratory Virus Panel PCR ([facility] ID: [id number]) so our lab can subtype the influenza A, per CDC recommendations. Influenza B PCR Not Detected Not Detected LAB MICROBIOLOGY METHOD 02/08/2025 10:49 AM EST [facility] RSV PCR Not Detected Not Detected LAB MICROBIOLOGY METHOD 02/08/2025 10:[address] [facility] SARS COV-2 Not Detected Not Detected LAB MICROBIOLOGY METHOD 02/08/2025 10:49 AM EST [facility] Swab Both anterior nares / Unknown Non-blood Collection / Unknown 02/08/2025 9:18 AM EST 02/08/2025 9:32 AM EST Edy Starks MD LAB MICROBIOLOGY - GENERAL O RDERABLES Final Result Performing Organization Address [facility]/ZIP Co de Phone Number [facility] [address] [place] [address], [place] [phone] * Troponin I high sensitivity (02/08/2025 8:09 AM EST) [facility] High Sensitivity Troponin I 3 <=53 ng/L 02/08/2025 8:57 AM EST [facility] Blood Venous blood specimen / Unknown Venipuncture / Unknown 02/08/2025 8:09 AM EST 02/08/2025 8:31 AM EST Stephanie KAPADIA LAB BLOOD ORDERABLES Final R esult Performing Organization Address City/[facility]/ZIP Co de Phone Number [facility] [address] [place] [address], [place] [phone] * (ABNORMAL) CBC auto differential (02/08/2025 8:09 AM EST) [facility] WBC 6.6 4.8 - 10.8 K/mcL LAB HEMETOLOGY METHOD 02/08/2025 8:36 AM EST [facility] RBC 5.00 4.50 - 5.50 M/[facility] LAB HEMETOLOGY METHOD 02/08/2025 8:36 AM EST [facility] Hemoglobin 13.0(L) 13.5 - 17.5 g/dL LAB HEMETOLOGY METHOD 02/08/2025 8:36 AM EST [facility] Hematocrit 40.4(L) 42.0 - 54.0 % LAB HEMETOLOGY METHOD 02/08/2025 8:[address] [facility] MCV 80.6 79.0 - 98.0 FL LAB HEMETOLOGY METHOD 02/08/2025 8:[address] [facility] MCH 25.9(L) 27.0 - 32.0 pcg LAB HEMETOLOGY METHOD 02/08/2025 8:[address] [facility] MCHC 32.2 32.0 - 37.0 g/dL LAB HEMETOLOGY METHOD 02/08/2025 8:[address] [facility] RDW 13.1 11.0 - 15.0 % LAB HEMETOLOGY METHOD 02/08/2025 8:[address] [facility] Platelets 180 130 - 400 K/mcL LAB HEMETOLOGY METHOD 02/08/2025 8:[address] [facility] MPV 10.3 7.0 - 11.0 FL LAB HEMETOLOGY METHOD 02/08/2025 8:[address] [facility] NRBC 0.0 <1.0 % LAB HEMETOLOGY METHOD 02/08/2025 8:[address] [facility] NRBC Absolute 0.00 <0.10 K/mcL LAB HEMETOLOGY METHOD 02/08/2025 8:[address] [facility] Neutrophils Relative 75.5 % LAB HEMETOLOGY METHOD 02/08/2025 8:[address] [facility] Lymphocytes Relative 11.9 % LAB HEMETOLOGY METHOD 02/08/2025 8:[address] [facility] Monocytes Relative 9.7 % LAB HEMETOLOGY METHOD 02/08/2025 8:[address] [facility] Eosinophils Relative 0.6 % LAB HEMETOLOGY METHOD 02/08/2025 8:[address] [facility] Basophils Relative 0.5 % LAB HEMETOLOGY METHOD 02/08/2025 8:36 AM EST [facility] Immature Granulocytes Relative 1.8 % LAB HEMETOLOGY METHOD 02/08/2025 8:[address] [facility] Neutrophils Absolute 4.97 1.50 - 7.00 K/mcL LAB HEMETOLOGY METHOD 02/08/2025 8:36 AM EST [facility] Lymphocytes Absolute 0.78(L) 1.00 - 5.00 K/mcL LAB HEMETOLOGY METHOD 02/08/2025 8:36 AM EST [facility] Monocytes Absolute 0.64 0.20 - 1.00 K/mcL LAB HEMETOLOGY METHOD 02/08/2025 8:[address] [facility] Eosinophils Absolute 0.04 0.00 - 0.50 K/mcL LAB HEMETOLOGY METHOD 02/08/2025 8:36 AM EST [facility] Basophils Absolute 0.03 0.00 - 0.20 K/mcL LAB HEMETOLOGY METHOD 02/08/2025 8:[address] [facility] Immature Granulocytes Absolute 0.12(H) 0.00 - 0.03 K/mcL LAB HEMETOLOGY METHOD 02/08/2025 8:[address] [facility] Blood Venous blood specimen / Unknown Venipuncture / Unknown 02/08/2025 8:09 AM EST 02/08/2025 8:31 AM EST us Edy Starks MD LAB BLOOD ORDERABLES Final R esult [facility] [address] [place] [address], * Lipase (02/08/2025 8:09 AM EST) Lipase 23 12 - 53 unit/L 02/08/2025 9:00 AM EST [facility] Blood Venous blood specimen / Unknown Venipuncture / Unknown 02/08/2025 8:09 AM EST 02/08/2025 8:31 AM EST Edy Starks MD LAB BLOOD ORDERABLES Final R esult [facility] [address] [place] [address], * (ABNORMAL) Comprehensive metabolic panel (02/08/2025 8:09 AM EST) Sodium 134 133 - 145 mmol/L 02/08/2025 9:[address] [facility] Potassium 4.4 3.5 - 5.5 mmol/L 02/08/2025 9:[address] [facility] Chloride 100 96 - 110 mmol/L 02/08/2025 9:[address] [facility] CO2 26 21 - 32 mmol/L 02/08/2025 9:[address] [facility] Anion Gap 8 3 - 11 02/08/2025 9:[address] [facility] Glucose 260(H) 70 - 100 mg/dL 02/08/2025 9:[address] [facility] BUN 11 5 - 25 mg/dL 02/08/2025 9:[address] [facility] Creatinine 1.11 0.70 - 1.30 mg/dL 02/08/2025 9:[address] [facility] eGFR 77 >=60 mL/min/1. 73m2 02/08/2025 9:[address] [facility] Comment:Calculation based on the Chronic Kidney Disease Epidemiology Collaboration (CKD-EPI) equation refit without adjustment for race. BUN/Creatinine Ratio 9.9 02/08/2025 9:[address] [facility] Calcium 9.4 8.5 - 10.5 mg/dL 02/08/2025 9:[address] [facility] AST (SGOT) 38 10 - 42 unit/L 02/08/2025 9:[address] [facility] ALT (SGPT) 45 10 - 60 unit/L 02/08/2025 9:[address] [facility] Alkaline Phosphatase 128(H) 42 - 121 unit/L 02/08/2025 9:[address] [facility] Total Protein 7.4 6.0 - 8.0 g/dL 02/08/2025 9:[address] [facility] Albumin 4.2 3.2 - 5.0 g/dL 02/08/2025 9:[address] [facility] Total Bilirubin 0.3 0.0 - 1.4 mg/dL 02/08/2025 9:[address] [facility] Blood Venous blood specimen / Unknown Venipuncture / Unknown 02/08/2025 8:09 AM EST 02/08/2025 8:31 AM EST Edy Starks MD LAB BLOOD ORDERABLES Final R esult [facility] [address] [place] [address], * ECG 12 lead (02/08/2025 7:31 AM EST) Ventricular Rate ECG 82 BPM GEMUSE Atrial Rate 82 BPM GEMUSE P-R Interval 178 ms GEMUSE QRS Duration 90 ms GEMUSE Q-T Interval 376 ms GEMUSE QTc 439 ms GEMUSE P Wave [place] 13 degrees GEMUSE R [place] 24 degrees GEMUSE T [place] 34 degrees GEMUSE ECG Interpretation Normal sinus rhythm Possible Left atrial enlargement Borderline ECG When compared with ECG of 06-APR-2022 08:15, No significant change was found Confirmed by CARRINGTON ARMENDARIZ ([id number]) on 02/08/2025 7:27:27 PM GEMUSE 02/08/2025 7:31 AM EST 02/08/2025 7:27 PM EST us Edy Starks MD ECG ORDERABLES Final Result GEMUSE from Last 3 Months Additional Health Concerns Infection Onset Date Last Indicated Influenza 02/08/2025 02/08/2025 Insurance [facility] Care Teams Bronze Plater Relationship Specialty Start Date End Date Sara Albright MD [address] [facility] , [address] [facility] JOSE Fatima PCP - General Internal Medicine 02/08/25
--- OUTSIDE RECORDS SUMMARY | 2025-02-12 17:11 | XMS_ITS | Patient Health Record ---
Author Organization [facility] Address [address] [place] [id number] Care Team Providers Care Real Estate Paralegal Name Role Phone [facility] Primary Care Provider [phone] Mariana Macias [facility] Reason For Referral No Information Encounters Encounter Location Date Provider Diagnosis [facility] [address] [place] [address] [phone] 09/04/2024 Mariana Macias [facility] [address] [place] [address] [phone] 09/13/2024 Mariana Macias [facility] [address] [place] [address] [phone] 09/13/2024 Mariana Macias [facility] [address] [place] [address] [id number] 01/14/2025 Mariana Macias [facility] [address] [place] [address] [phone] 08/22/2024 Mariana Macias Plan Of Treatment No Information Insurance Providers Payer Name Payer Address Payer Phone Subscriber Number Group Number Insured Name Patient Relationship to Insured Coverage Start Date Coverage End Date [facility] [employer] [address] [place] [id number] Liborio Dyson Self - patient is the insured 5 5
== END 2025-02-12 13:51 | disposition home or self-care (01) ==
LOC: HO.HMCH 13:10
PROVIDERS: PCP Internal Medicine; Visit Provider Internal Medicine
DX: E11.65 Type 2 diabetes mellitus with hyperglycemia (principal); I10 Essential (primary) hypertension; J11.1 Influenza due to unidentified influenza virus with other respiratory manifestations; J02.9 Acute pharyngitis, unspecified

== ENCOUNTER → 2025-02-12 13:08 | Outpatient (BNVA) | payer OTHER, SELFPAY | PROVIDERS: PCP Internal Medicine; Visit Provider Internal Medicine | DX: E11.65 Type 2 diabetes mellitus with hyperglycemia (principal); I10 Essential (primary) hypertension; J11.1 Influenza due to unidentified influenza virus with other respiratory manifestations; J02.9 Acute pharyngitis, unspecified | CPT/HCPCS: 96127; 99212 ==